=== PATIENT | male | born 1950 | race Caucasian/White ===

== ENCOUNTER 2021-05-24 10:16 | Outpatient (CLI) | payer MEDICARE, OTHER, SELFPAY ==
--- NOTE | 2021-05-24 10:30 | ECG_ITS ---
Measurements Intervals Dows Rate: 68 P: 28 IL: 155 QRS: -16 QRSD: 94 T: 17 QT: 400 QTc: 426 Interpretive Statements SINUS RHYTHM DELAYED PRECORDIAL R/S TRANSITION LOW QRS VOLTAGE IN PRECORDIAL LEADS BASELINE ARTIFACT- V6 BORDERLINE ECG Electronically Signed On 05-24-2021 10:45:33 CDT by Yuval Shields D.O.
[2021-05-24 10:56] LABS: Anion Gap 4 mmol/L (8-16); Blood Urea Nitrogen 23 mg/dL (9-20); Calcium 9.8 mg/dL (8.4-10.2); Carbon Dioxide 37 mmol/L (22-30); Chloride 97 mmol/L (98-107); Estimated Glomerular Filt Rate 55; Glucose 112 mg/dL (65-110); Potassium 4.5 mmol/L (3.4-5.0); Sodium 138 mmol/L (137-145)
== END 2021-05-24 10:17 | disposition home or self-care (01) ==
LOC: ANHSURGERY 10:22
PROVIDERS: Anesthesiology; PCP Family Medicine; Visit Provider Urology
DX: Z01.818 Encounter for other preprocedural examination (principal); Z51.81 Encounter for therapeutic drug level monitoring; I10 Essential (primary) hypertension
CPT/HCPCS: 36415; 80048; 93005

== ENCOUNTER 2021-05-25 00:50 | Day surgery (SDC) | payer MEDICARE, OTHER, SELFPAY ==
[2021-05-23 15:07] VITALS: BMI 35.6
--- NOTE | 2021-05-23 15:39 | PC.NURSE ---
Report to the Outpatient Waiting Room, entrance under the green pavilion located off [facility], at time __1100 on date ____05/25/21___. OR Time: ___1300 . - You and your visitor will be asked a series of questions to screen for COVID 19 for your protection. - A mask is required within the hospital. - Only one visitor is allowed at this time. Patient visitors will be guided where to wait when not with patient. Preoperative COVID Testing Requirements: No COVID Test needed if: (proof is required; if not received patient will have Rapid Test prior to entry) - Patient has received COVID Vaccine at least 14 days prior to procedure date or - Patient has positive COVID test result within last 90 days of surgery date. COVID Test needed if above criteria is not met If not COVID vaccinated a COVID test must be conducted within 72 hours of surgery and patient is asked to isolate self from time of testing until procedure. You will go to the [facility] [employer] for your COVID testing. The [employer] [facility] is located at the corner of [address] [facility]. You will only be called if COVID results are positive and your surgeon may reschedule your elective surgery date. Patients may have clear liquids (water, carbonated beverages, clear teas, apple juice) until 3 hours prior to surgery with a maximum of 20 ounces. - No food from midnight until time of surgery - Infants may have breast milk until 4 hours before surgery, formula 6 hours prior to surgery. - Children will be allowed to drink immediately following surgery. If applicable, please bring a bottle or sippy cup to assist with drinking. Juice, water, soda, and popsicles are readily available. For infants on formula, please bring formula the day of surgery. Pacifiers are allowed. Take the following medications with a SIP of water the morning of surgery: ____AMLODIPINE, DULOXETINE, GABAPENTIN, HYDROCODONE, LEVOTHYROXINE Medications to discontinue per physician NONE Date to take last dose Please no make-up, nail greek, hairspray, perfume, deodorant, or body powder the day of surgery. No jewelry (including any body piercings) or valuables the day of surgery, leave them at home. Please take a shower or bath the night before, or the morning of, surgery with an antibacterial soap. Wear comfortable, loose fitting clothing. Children are encouraged to wear pajamas. - Jewelry must be removed prior to entering the operating room. Rings and piercings that are not removed may be cut off. - The hospital will not accept responsibility for valuables. - Please leave all valuables, including medications, at home the day of surgery. If you are going home after surgery, a licensed driver trainee must drive you home. - NO public transportation without another adult. - We recommend that an adult stay with you for 24 hours following discharge. - We also recommend that you do not drive, make important decision, drink alcoholic beverages, or take any drugs that were not prescribed by your health care provider for at least 24 hours after your discharge time. For Pediatric surgeries, we recommend two adults accompany the child home (only one inside the building at this time). Follow any additional instructions given to you from your surgeon. Telephone instructions given to ____PATIENT and asked if any additional questions and then verbalized understanding. Patient advised to call surgeon office or pre surgery nurse liaison [phone] if any additional questions.
--- NOTE | 2021-05-25 06:47 | WPDHPUPDATE1 ---
History and Physical Update Update Date/Time: 05/25/21 06:47 History and Physical has been reviewed, including an updated exam of the patient. There are NO changes in the patient's condition. Risks, benefits, and alternatives have been discussed and questions answered. Patient agrees to proceed with procedure.
--- NOTE | 2021-05-25 11:28 | WPDANESEPPF ---
Anes - Initial Pre Proc Eval Procedure: Operation Date: 05/25/21 13:00 Proposed Procedures p Cystoscopy, Urethral Dilatation - Ezra Ross MD Date/Time: 05/25/21 11:28 Surgeon: Ezra Ross MD Pre Op Diagnosis: Urethral Stricture Patient Data Age: 70 Gender: M Height: 1.88 m Weight: 126.7 kg Allergies Allergy/AdvReac Type Severity Reaction Status Date / Time clonidine Allergy Unknown shakes Verified 05/25/21 10:59 atenolol AdvReac Unknown cough Verified 05/25/21 10:59 chlorthalidone [Tenoretic] AdvReac Unknown cough Verified 05/25/21 10:59 PSEUDOEPHEDRINE HCL AdvReac Unknown shakey Uncoded 05/25/21 10:59 DECONGESTANTS AdvReac Hypertension, Uncoded 05/25/21 10:59 SHAKINESS Home Medications Medication Instructions Recorded Confirmed Type hydrocodone 10 mg-acetaminophen 1 tablet PO Q3-4H PRN 02/02/20 05/23/21 History 325 mg tablet duloxetine 60 mg capsule,delayed 60 mg PO BID #180 cap 05/25/20 05/23/21 Rx release furosemide 20 mg tablet 20 mg PO QAM #90 tablet 05/25/20 05/23/21 Rx metformin 500 mg tablet 500 mg PO BID #180 tablet 05/25/20 05/23/21 Rx montelukast 10 mg tablet 10 mg PO DAILY #90 tablet 05/25/20 05/23/21 Rx alprazolam 1 mg tablet 1 mg PO QHS #90 tablet 04/18/21 05/23/21 Rx amlodipine 10 mg PO QAM 05/23/21 05/23/21 History atorvastatin 40 mg PO QAM 05/23/21 05/23/21 History ezetimibe [Zetia] 10 mg PO QAM 05/23/21 05/23/21 History gabapentin 300 mg PO QAM 05/23/21 05/23/21 History levothyroxine 75 mcg PO QAM 05/23/21 05/23/21 History losartan-hydrochlorothiazide 1 tablet PO QAM 05/23/21 05/23/21 History omeprazole 20 mg PO QAM 05/23/21 05/23/21 History Patient hx anesthesia problems: none Family hx anesthesia problems: none Results Review: All pre-operative results and documents have been reviewed as part of the pre-operative evaluation. [facility] Family History Family History Mother Diabetes mellitus Depression Hypertension Family history of elevated blood lipids Family history of malignant neoplasm of thyroid Grandparent Diabetes mellitus Hypertension Family history of elevated blood lipids Carcinoma of colon Sibling Depression Social History Social History Smoking packs per day: 0.25 Smoking cigarettes per day: 5.0 Years smoked: 6 Smoking pack-years: 1.50 Tobacco type: cigarettes Second hand tobacco smoke exposure: Yes Smoking end date: 01/19/77 Alcohol intake: never Drinks per week: 1 Substance use: never Living arrangements: with family Additional living arrangements comments: Spiritual care concerns: No Anes - Eval Final PreProcedure Day of Procedure 05/25/21 11:28 Patient weight: obese Heart: regular rate and rhythm Lungs: clear to auscultation Airway: Mallampati scale class II Neurological: alert and oriented Last oral intake: >/= 8 hours ASA classification: III Emergent: no Anesthetic plan: proceed Anesthesia type and monitoring: general LMA and standard monitoring Results Review: All pre-operative results and documents have been reviewed as part of the pre-operative evaluation. Informed Consent: The patient's anesthetic plan and its attendant risks and benefits were discussed with the patient/family/POA. Questions were solicited and answers provided to the satisfaction of the patient/family/POA.
[2021-05-25 11:32] VITALS: BP 143/95; PULSE 67; RESP 16; TEMP 36.9; O2SAT 98
[2021-05-25 11:39] LABS: Glucose Point of Care 103 mg/dl (65-105)
[2021-05-25] MEDS: LACTATED RINGERS 1,000 ML 30 ML IV CONT (11:51)
[2021-05-25] MEDS: ceFAZolin 3 GM/D5W 100 ML 100 ML IVPB (13:39)
[2021-05-25] MEDS: LIDOCAINE HCL 2% GEL UROJET 10 ML PKG MUCOUS MEM (13:53)
[2021-05-25 14:09] VITALS: BP 146/99; PULSE 71; RESP 12; TEMP 36.3; O2SAT 99
--- NOTE | 2021-05-25 14:10 | W.PM.PROC2 ---
Procedure Note - Detailed Date of Procedure 05/25/21 Pre-op Diagnosis Urethral Stricture/Bladder Neck Contracture Post-op Diagnosis same Procedure Performed Cystoscopy, dilatation bladder neck Surgeon Ezra Ross MD Anesthesia MAC Description of Procedure The patient was brought to the operative suite where he was prepped and draped in a routine sterile fashion while in a dorsal lithotomy position after the uneventful induction of a general LMA anesthetic. Cystoscopy was undertaken with a 19F rigid cystoscope. There were no urethral strictures. The prostatic urethral estimated length was 1.0cm (previously undergone treatment for CaP). The bladder itself was endoscopically normal without foreign body or neoplasm. The bladder mucosa was without hyperemia. There was a single orthotopic ureteral orifice bilaterally with clear efflux of urine. Using the Sarita sounds I dilated the urethra and bladder neck from [] F. The bladder was emptied and the patient was taken to the recovery room in good condition Estimated Blood Loss 0 Drains No Packing No Pathology none sent Complications No immediate complications Condition stable Disposition PACU
[2021-05-25 14:20] VITALS: BP 137/98; PULSE 68; RESP 12; O2SAT 100
[2021-05-25 14:25] LABS: Glucose Point of Care 85 mg/dl (65-105)
[2021-05-25 14:35] VITALS: BP 129/97; PULSE 63; RESP 20; O2SAT 99
[2021-05-25 14:50] VITALS: BP 155/84; PULSE 62
[2021-05-25 15:20] VITALS: BP 140/96; PULSE 57
--- NOTE | 2021-05-25 15:20 | SUR.PHASEII ---
Patient has a prescription for Cade already that is stronger than the one prescribed so he told me to shred the one from Dr. Ross.
--- NOTE | 2021-05-25 15:27 | SUR.PHASEII ---
Patient states, My blood pressure runs high with the automatic machines. My doctor just checked it manually last week and it was fine.
== END 2021-05-25 15:28 | disposition home or self-care (01) ==
PROVIDERS: PCP Family Medicine; Visit Provider Urology
PROC: 0T7D8ZZ Dilation of Urethra, Via Natural or Artificial Opening Endoscopic (ICD-10-PCS; CPT 52281; principal; 2021-05-25 13:00)
DX: N32.0 Bladder-neck obstruction (principal); N35.919 Unspecified urethral stricture, male, unspecified site; Z85.46 Personal history of malignant neoplasm of prostate; I10 Essential (primary) hypertension; E78.00 Pure hypercholesterolemia, unspecified; K21.9 Gastro-esophageal reflux disease without esophagitis; Z79.82 Long term (current) use of aspirin; Z79.84 Long term (current) use of oral hypoglycemic drugs; Z87.891 Personal history of nicotine dependence; E66.9 Obesity, unspecified; Z68.35 Body mass index [BMI] 35.0-35.9, adult
CPT/HCPCS: 52281; 82948; A9270; J0690; J2250; J2704; J3010; J7120

== ENCOUNTER → 2021-05-26 10:34 | Outpatient (CLI) | payer MEDICARE, OTHER, SELFPAY ==
--- NOTE | ~2021-05-26 | US_ITS ---
EXAMINATION: US abdomen complete DATE: 05/26/2021 11:14 INDICATION: Bloating and abdominal pain TECHNIQUE: Multiple grayscale and Doppler ultrasound images of the abdomen were obtained. COMPARISON: None available FINDINGS: Bowel gas obscures visualization of the pancreas The liver is normal with normal echogenici ty and echotexture. No surface nodularity. Normal hepatopetal flow in the main portal vein. The gallb ladder is normal with no abnormal wall thickening, pericholecystic fluid or stones. The normal common bile duct measures 4 mm. There was no sonographic Connell sign. The visualized portions of the aorta and inferior vena cava are normal. The right kidney measures 10.5 x 5.1 x 4.4 cm. The left kidney measures 10.3 x 4.8 x 4.5 cm. The kidn eys demonstrate normal parenchymal echogenicity. There is no hydronephrosis. The spleen is normal in appearance and measures 9.9 cm. IMPRESSION: 1. No sonographic correlate for the patient's symptoms. Reviewed, dictated and finalized at location B.
== END ==
PROVIDERS: PCP Family Medicine; Visit Provider Family Medicine
DX: R10.9 Unspecified abdominal pain (principal)
CPT/HCPCS: 76700

== ENCOUNTER 2024-10-27 09:14 | Outpatient (CLI) | payer MEDICARE, OTHER, SELFPAY ==
--- NOTE | ~2024-10-27 | NM_ITS ---
EXAMINATION: NM babar stress w perfusion DATE: 10/27/2024 13:03 INDICATION: Type 2 diabetes TECHNIQUE: Rest images were obtained following intravenous administration of 11.2 mCi Tc99m tetrofosm in (Myoview). The patient was infused intravenously with Lexiscan (Regadenoson). Then, 33.7 mCi Tc99m tetrofosmin (Myoview) was administered intravenously, and stress images were obtained. Data was georgiana nstructed into short axis and horizontal and vertical long axis SPECT images. Gated SPECT images were also obtained. COMPARISON: None. FINDINGS: There is no definite reversible or fixed perfusion abnormality to suggest ischemia or infar ction. There is normal left ventricular chamber size, wall motion and ejection fraction. Left ventr icular ejection fraction measures 68%. IMPRESSION: 1. Normal myocardial perfusion at rest and during stress. 2. Left ventricular ejection fraction measuring 68%. Reviewed, dictated and finalized at location B.
--- OUTSIDE RECORDS SUMMARY | 2024-10-27 09:57 | XMS_ITS | Referral Summary ---
Author Organization [facility] Address [address] [place] [address] Care Team Providers Care Homicide Detective Name Role Phone Garry Kwong MD Unavailable [phone] Fiona Matthew MD Primary Care Provider + Encounters Date Type Department Care Team Description 10/22/2024 10:55 AM CDT - 10/22/2024 11:59 PM CDT Hospital Encounter [facility] [address] [place] [address] Pre-op testing Discharge Disposition: Discharge to home or self care 10/08/2024 1:35 PM CDT Office Visit [facility] [address] [facility] [address] [place] [phone] Kristine Atkinson NP 09/25/2024 10:00 AM ELECTRICAL PROJECT MANAGER - 09/25/2024 11:30 AM ELECTRICAL PROJECT MANAGER Surgery [facility] [address] [place] [address] Gil Alford MD LAPAROSCOPIC CHOLECYSTECTOMY 09/25/2024 10:12 AM ELECTRICAL PROJECT MANAGER Anesthesia Event [facility] [address] [place] [address] Marlen Aceves MD [place], Emenike Adolphus Jr., MD 09/25/2024 8:00 AM ELECTRICAL PROJECT MANAGER - 09/25/2024 1:20 PM ELECTRICAL PROJECT MANAGER Hospital Encounter [facility] Operating Room [address] [place] [address] Gil Alford MD Biliary colic Discharge Disposition: Discharge to home or self care 09/16/2024 10:30 AM ELECTRICAL PROJECT MANAGER Office Visit [facility] [address] [facility] [address] [place] [phone] Gil Alford MD Biliary colic 09/03/2024 3:09 PM ELECTRICAL PROJECT MANAGER - 09/03/2024 11:59 PM ELECTRICAL PROJECT MANAGER Hospital Encounter [facility] [address] [place] [address] Rotator cuff arthropathy of left shoulder Discharge Disposition: Discharge to home or self care 09/02/2024 Telephone [facility] [address] [place] [address] BorisKarly Peterson 08/13/2024 Orders Only [facility] [address] [place] [phone] Chepe Llanos MD S/P reverse total shoulder arthroplasty, left (Primary Dx) 08/13/2024 Orders Only [facility] [address] [place] [phone] Chepe Llanos MD Rotator cuff arthropathy of left shoulder (Primary Dx) 08/12/2024 Telephone [facility] [address] [place] [phone] Chepe Llanos MD 08/12/2024 1:15 PM ELECTRICAL PROJECT MANAGER Office Visit [facility] [address] [place] [phone] Chepe Llanos MD Rotator cuff arthropathy of left shoulder (Primary Dx) from Last 3 Months Allergies Active Allergy Reactions Criticality Noted Date Comments Aller-Chlor Decongestant Unknown 02/05/2022 Clonidine Other (See comments) Reaction: nervous, Pregabalin Mental status changes Low 09/23/2019 Anger Oxymetazoline Anxiety Low 08/11/2021 Jittery. jumpiness Prochlorperazine Other (See comments) Low 02/05/2022 Reaction: highly nervous, Reaction: highly nervous, Pseudoephedrine Other (See comments) Reaction: NERVOUS; HYPER, Medications montelukast (SINGULAIR) 10 mg tablet Take 1 tablet (10 mg total) by mouth nightly Active omeprazole (PriLOSEC) 40 mg capsule Take 1 capsule (40 mg total) by mouth daily Active atorvastatin (LIPITOR) 40 mg tablet Take 1 tablet (40 mg total) by mouth daily Active levothyroxine (SYNTHROID) 75 mcg tablet Take 1 tablet (75 mcg total) by mouth manager universal before breakfast Active amLODIPine (NORVASC) 10 mg tablet Take 1 tablet (10 mg total) by mouth daily Active DULoxetine DR (CYMBALTA) 60 mg capsule Take 1 capsule (60 mg total) by mouth 2 (two) times a day Active furosemide (LASIX) 20 mg tablet Take 1 tablet (20 mg total) by mouth daily Active ezetimibe (ZETIA) 10 mg tablet Take 1 tablet (10 mg total) by mouth daily 2 Active losartan-hydroC HLOROthiazide (HYZAAR) 100-12.5 mg per tablet 2 Active fluticasone propionate (FLONASE) 50 mcg/actuation nasal spray Administer 1 spray into each nostril daily Active cetirizine (ZyrTEC) 10 mg tablet Take 1 tablet (10 mg total) by mouth daily Active glipiZIDE XL (GLUCOTROL XL) 2.5 mg 24 hr tablet Take 1 tablet (2.5 mg total) by mouth daily 3 Active albuterol HFA (PROVENTIL HFA,VENTOLIN HFA,PROAIR HFA) 90 mcg/actuation inhaler Albuterol Sulfate HFA 108 (90 Base) MCG/ACT Inhalation Aerosol Solution QTY: 1 inhaler Days: 30 Refills: 0 Written: 06/26/20 Patient Instructions: Inhale 1-2 puffs Q4-6 H PRN cough, sob, wheezing. 0 Active naloxone (NARCAN) 4 mg/actuation spray,non-aeros ol 4 Active HYDROmorphone, bulk, (DILAUDID) 100 % powder 0 5 Active cyanocobalamin, vitamin B-12, 1,000 mcg/mL drops Take by mouth Active oxyCODONE-aceta minophen (PERCOCET) 5-325 mg per tabletIndicatio ns:Pain Take 1-2 tablets by mouth every 8 (eight) hours as needed for pain 20 tablet Active Active Problems Problem Noted Date Diagnosed Date Rotator cuff arthropathy, left 10/15/2024 Biliary colic 09/16/2024 Prediabetes 09/02/2023 Assessment & Plan (09/02/2023 12:46 PM ELECTRICAL PROJECT MANAGER): No results found for: HGBA1C Lab Results Component Value Date CREATININE 1.31 01/25/2016 Recheck A1c now Lipid panel microalbumin Spondylosis of lumbar region without myelopathy or radiculopathy 07/30/2023 Myalgia, other site 07/30/2023 Hypertension, essential 12/12/2021 Assessment & Plan (09/02/2023 12:36 PM ELECTRICAL PROJECT MANAGER): BP Readings from Last 3 Encounters: 09/02/23 108/78 09/02/23 121/83 07/30/23 136/97 Vitals BP 108/78 (BP Location: Right arm, Patient Position: Sitting) Pulse 96 Resp 16 Ht 179.1 cm (5' 10.51 ) Wt 122.5 kg (270 lb) SpO2 96% BMI 38.18 kg/m Lab Results Component Value Date POTASSIUM 4.0 01/25/2016 At goal at this time Continue lasix 20 mg every day, hyzaar 100-12.5 mg every day, norvasc 10 mg qd Assessment & Plan (03/13/2022 1:17 PM CDT): Stable, well controlled; blood pressure at target today; no chest pain or headaches Some episodes of orthostatics, varying day-to-day Continue amlodipine 10 mg daily well furosemide 20 mg daily, hydrochlorothiazide 12.5 mg daily Losartan-hydrochlorothiazide 100-12.5 mg daily Assessment & Plan (12/12/2021 4:43 PM CDT): Mildly elevated today, continue Losartan-HCTZ 100-12.5, and HCTZ 12.5 mg daily Gastroesophageal reflux disease without esophagi tis 12/12/2021 Assessment & Plan (03/13/2022 1:19 PM CDT): Stable, not well controlled; patient reports some chest pressure as well as easy belching Continue omeprazole 40 mg daily Assessment & Plan (12/12/2021 4:46 PM CDT): Stable well controlled; with prilosec 40 mg daily Acquired hypothyroidism 12/12/2021 Assessment & Plan (09/02/2023 12:41 PM ELECTRICAL PROJECT MANAGER): No results found for: TSH No previous tsh Recheck now Assessment & Plan (03/13/2022 1:18 PM CDT): Stable, well controlled; continue levothyroxine 75 mcg daily Assessment & Plan (12/12/2021 4:46 PM CDT): Stable,well controlled with good management of energy and weight -continue Synthroid 75 mcg -check TSH Dyslipidemia 12/12/2021 Assessment & Plan (03/13/2022 1:17 PM CDT): Will, well controlled; occasional episodes of cramping in muscles, especially cast Continue atorvastatin 40 mg daily, Zetia 10 mg daily Coenzyme Q10 4 muscle cramps Assessment & Plan (12/12/2021 4:48 PM CDT): Likely familial; continue atorvastatin 40 mg, Exetimibue 10 mg daily Class 2 severe obesity due t o excess calories with serious comorbidity and body mass index (BMI) of 36.0 to 36.9 in adult 12/12/2021 Assessment & Plan (09/02/2023 12:41 PM ELECTRICAL PROJECT MANAGER): Wt Readings from Last 3 Encounters: 09/02/23 122.5 kg (270 lb) 09/02/23 121.1 kg (267 lb) 04/10/23 124.3 kg (274 lb) BMI Readings from Last 3 Encounters: 09/02/23 38.18 kg/m 09/02/23 37.77 kg/m 04/10/23 39.31 kg/m Not at goal of bmi <30 Continue diet and exercise BMI Follow-up includes: nutrition counseling and exercise counseling. Assessment & Plan (03/13/2022 1:18 PM CDT): Stable, mild improvement Encouraged patient continue to work on dietary changes to reduce overall caloric intake, increase activity to 30 minutes moderate intensity exercise 5 days per week Patient has limited activity due to chronic low back pain with radiculopathy Assessment & Plan (12/12/2021 4:49 PM CDT): Stable, encouraged patient to work on weight loss Patient limited in exercise due to chronic pain, however encouraged patient to work on portion control and dietary changes to reduce weight Nontraumatic incomplete tear of left rotator cuf f 10/05/2021 Rupture of tendon of biceps, long head 2 Abdominal pain 10/03/2021 Assessment & Plan (10/03/2021 1:29 PM CDT): EGD Lumbar radiculopathy 09/17/2019 Lumbar post-laminectomy syndrome 09/17/2019 Assessment & Plan (12/12/2021 4:42 PM CDT): Not well controlled; now with loss of feeling in right leg; some improvement with discetomy; -follows with pain management -continue duloxetine 60 mg BID; continue Xanax 1 mg prn Insomnia secondary to chronic pain 09/17/2019 Colon cancer screening 02/05/2019 Overview (02/05/2019): Added automatically from request for surgery [id number] Resolved Problems Problem Noted Date Diagnosed Date Resolved Date Degenerative lumbar spinal stenosis 09/11/2022 06/20/2023 Lumbar facet arthropathy 07/24/2022 Acute midline thoracic back pain 08/18/2020 06/20/2023 Chronic pain of multiple joints 04/10/2020 06/20/2023 Assessment & Plan (03/13/2022 1:20 PM CDT): Not well controlled, worsened low back with radiculopathy Patient follows with pain management On hydrocodone 10 mg q.i.d. intermediate (current) use of opiate analgesic 12/18/2019 06/20/2023 Chronic bilateral low back p ain without sciatica 09/17/2019 06/20/2023 DDD (degenerative disc disease), lumbar 09/17/2019 06/20/2023 Sacroiliitis 09/17/2019 06/20/2023 Immunizations Immunization Administration Dates Next Due Influenza, Quadrivalent, Hig h Dose, Preservative Free, Intrr 05/06/2023,05/08/2022 Influenza, Quadrivalent, Rec ombinant, Egg Free, Preservative Free, Intramuscular 05/17/2021,04/01/2019 Influenza, Trivalent, High D ose, Split, Preservative Free, Intramuscular 03/17/2018 Influenza, Unspecified 04/30/2023 Pneumococcal Conjugate Pcv20 03/02/2022 Tdap 12/19/2022 ZOSTER Recombinant 12/19/2022 Social History Tobacco Use Types Packs/Day Years Used Date Smoking Tobacco: Former Cigarettes Q uit: 07/22/1973 Smokeless Tobacco: Never Tobacco Cessation:Counseling Given: Not Answered Alcohol Use Standard Drinks/Week Comments Never 0 (1 standard drink = 0.6 oz pur e alcohol) AUDIT-C Answer Date Recorded Q1: How often do you have a drink containing alcohol? Never 09/16/2024 Q2: How many drinks containi ng alcohol do you have on a typical day when you are drinking? Patient does not drink Q3: How often do you have si x or more drinks on one occasion? Never 09/16/2024 PHQ-2 Answer Date Recorded PHQ-2 Total Score (If total score is 3 or more points, staff should administer the PHQ-9) 0 09/02/2023 Personal Safety Answer Date Recorded Have you ever been in or are you currently in a harmful physical or emotional relationship or is someone making you feel afraid or unsafe? Denies 09/25/2024 Sex and Gender Information Value Date Recorded Sex Assigned at Not on file Legal Sex Male 3:29 PM ELECTRICAL PROJECT MANAGER Gender Identity Male 08/08/2020 5:45 PM ELECTRICAL PROJECT MANAGER Sexual Orientation Not on file Last Filed Vital Signs Vital Sign Reading Time Taken Comments Blood Pressure 118/78 10/08/2024 1:18 PM CDT Pulse 86 10/08/2024 1:18 PM CDT Temperature 36.2 C (97.1 F) 10/08/2024 1:18 PM CDT Respiratory Rate 18 09/25/2024 12:3 0 PM ELECTRICAL PROJECT MANAGER Oxygen Saturation 97% 10/08/2024 1:18 PM CDT Inhaled Oxygen Concentration - - Weight 124.1 kg (273 lb 9.6 oz) 10/08/2024 1:18 PM CDT Height 177.8 cm (5' 10 ) 10/08/2024 1:18 PM CDT Body Mass Index 39.26 10/08/2024 1:18 PM CDT Plan of Treatment Upcoming Encounters Date Type Department Care Team (Latest Contact Info) Description 11/10/2024 8:00 AM CDT Hospital Encounter [facility] [address] [place] [address] Chepe Llanos MD [address] [place] [address] DR ERON Carter [facility] [[email or web address]] [address] [place] [address] 11/10/2024 8:00 AM CDT - 11/10/2024 10:30 AM CDT Surgery [facility] [address] [place] [address] Chepe Llanos MD [address] [place] [address] DR ERON Carter [facility] [[email or web address]] [address] [place] [address] Left reverse total shoulder arthroplasty--Arthr ex, beach chair, NMES, Spider, polar care, 1 liter beta rinse and aquamantys (Same day) Scheduled Procedures Name Priority Associated Diagnoses Date/Ti me ARTHROPLASTY SHOULDER - REVERSE TOTAL Rotator cuff arthropathy, left 11/10/2024 8:00 AM CDT Goals Goal Patient Goal Type Associated Problems Recent Progress Patient-Stated? Author [facility] Worsening(11/2021 9:48 AM CDT) No Caroline Au, QIAN Note: Patient will establish a comfort-function goal and identify the pain level that will allow the patient to perform desired activities and achieve an acceptable quality of life. Medical Devices Implanted Type Area Brick Cleaner Device Identifier Shelf Expiration Date Model / Serial / Lot Penile- 4 Implanted:Qty: 1 on 05/26/2014 by London Syed MD Penis / REF [id number] / [id number] Description:700 LGX, MS Pump , Preconnect. IZ Ref [id number] lot [id number] [id number], 700, reservoir, IZ ref [id number] lot [id number] Procedures Procedure Name Priority Date/Time Associated Diagnosis Comments SURGICAL PATHOLOGY Routine 09/25/2024 11:38 AM ELECTRICAL PROJECT MANAGER Biliary colic POCT GLUCOSE DEVICE Routine 09/25/2024 11:22 AM ELECTRICAL PROJECT MANAGER MT AN ELECTIVE ENDOTRACHEAL AIRWAY Routine 09/25/2024 10:23 AM ELECTRICAL PROJECT MANAGER LAPAROSCOPIC CHOLECYSTECTOMY 09/25/2024 9:56 AM ELECTRICAL PROJECT MANAGER Biliary colic ECG 12-LEAD Routine 09/25/2024 8:36 AM ELECTRICAL PROJECT MANAGER POTASSIUM LEVEL STAT 09/25/2024 8:31 AM ELECTRICAL PROJECT MANAGER POCT GLUCOSE DEVICE Routine 09/25/2024 8 :18 [address]ICAL PRO[address] SHOULDER LEFT WO CONTRAST Schedule Routine, Read Routine (OP Routine) 09/03/2024 3:48 PM ELECTRICAL PROJECT MANAGER Rotator cuff arthropathy of left shoulder COLONOSCOPY 05/05/2019 7:29 AM CDT from Last 3 Months or Most Recently Relevant to Health Maintenance Results * Surgical pathology (09/25/2024 11:38 AM ELECTRICAL PROJECT MANAGER) Tissue specimen (specimen) (Gallbladder) 09/25/2024 10:51 AM ELECTRICAL PROJECT MANAGER Narrative PATHOLOGY [facility] ([facility]) - 09/28/2024 1:35 PM CDT EPIC results best viewed via link to PDF [facility] Department of Pathology [address] [place] [id number] Note to Patients: This report may contain a detailed description of human tissue sent by a health care provider to the laboratory for pathologic evaluation. The content of this report is essential for diagnosis and may provide important critical findings. This information may be unfamiliar to patients to review without a medical professional present. It is advised that the patient review this report in the presence of a health care provider who can answer questions and explain the details. Final Report Patient Name: PIERCE ESPINAL Address: [address] [place], [place] [address] Gender: Mary Lou : 1950 (Age: 73) Service: Surgery Location: [facility] Hospital #: [id number] Patient Type: [facility] Taken: 09/25/2024 Received: 09/25/2024 Accessioned: 09/25/2024 Reported: 09/28/2024 Physician(s):Gil Alford M.D. Diagnosis: A. Gallbladder, laparoscopic cholecystectomy- Chronic cholecystitis Chloe Perdomo M.D. Report Electronically Reviewed and Signed Out By Chloe Perdomo M.D. 09/28/2024 13:35:01 Specimen(s) Received: A: Gallbladder Microscopic Description: Microscopic examination corroborates the diagnosis. Clinical History: Biliary colic. Laparoscopic cholecystectomy. Gross Description: The specimen is submitted in a single formalin filled container labeled PIERCE ESPINAL and gallbladder . It is a partially previously incised gallbladder, 6.9 x 2.4 cm. The lumen contains bile. No stones are present in the lumen or the container. The mucosa is bile stained with a small amount of yellow stippling. The gallbladder wall varies from 2-4 mm maximum thickness. The cystic duct is patent. Memory Care Director sections are submitted in one cassette. Dmitry Herrera/Bee Perez M.D. REPORT IMAGES AND SCANNED DOCUMENTS, IF INCLUDED, ONLY VIEWABLE IN PDF VERSION OF REPORT The performance characteristics of some immunohistochemical stains, fluorescence in-situ hybridization tests and immunophenotyping by flow cytometry cited in this report (if any) were determined by the Surgical Pathology Department at [facility] as part of an ongoing quality control lab technician program and in compliance with federally mandated regulations drawn from the Clinical Laboratory Improvement Act of 1988 (CLIA '88). Some of these tests rely on the use of analyte specific reagents and are subject to specific labeling requirements by the US Food and Drug Administration. Such diagnostic tests may only be performed in a facility that is certified by the Department of Health and Human Services as a high complexity laboratory under CLIA '88. The FDA has determined that such clearance or approval is not necessary. This test is used for clinical purposes. It should not be regarded as investigational or for research. Nevertheless, federal rules concerning the medical use of analyte specific reagents require that the following disclaimer be attached to the report: This test was developed and its performance characteristics determined by the Surgical Pathology Department [facility]. It has not been cleared or approved by the U. S. Food and Drug Administration. Note for decalcified specimens: This assay has not been validated on decalcified tissues. Results should be interpreted with caution given the possibility of false negativity on decalcified specimens Gil Alford MD LAB PATHOLOGY ORDER ANDREA Final Result Performing Organization Address [facility] Co de Phone Number PATHOLOGY [facility] ([facility]) [address] [place] [address] * POCT glucose (09/25/2024 11:22 AM ELECTRICAL PROJECT MANAGER) Glucose, POC 127 70 - 199 mg/dL Blood 09/25/2024 11:2 2 AM ELECTRICAL PROJECT MANAGER 09/25/2024 11:22 AM ELECTRICAL PROJECT MANAGER Gil Alford MD LAB POCT ORDERABLES - DEVICE Final Result Performing Organization Address [facility] de Phone Number [facility] ([facility]) [address] [facility] [place] [address] * MT AN ELECTIVE ENDOTRACHEAL AIRWAY (09/25/2024 10:23 AM ELECTRICAL PROJECT MANAGER) Narrative Bakari Lizarraga CRNA - 09/25/2024 10:23 AM ELECTRICAL PROJECT MANAGER Bakari Lizarraga CRNA 09/25/2024 10:24 AM Airway Patient location: OR Urgency: elective Date/time: 09/25/2024 10:23 AM Indications for airway management: anesthesia and airway protection Difficult airway: no Staff: Supervising provider: Marlen Aceves MD Placed by: STONE LAYER: Bakari Lizarraga CRNA Emergent airway documentation: Risks and benefits discussed: yes Consent obtained: yes Consent given by: patient Airway prep: Preoxygenated: yes Patient position: sniffing Mask difficulty assessment: 0 - not attempted Spontaneous ventilation during airway: absent Sedation level during airway: GA Final airway details: Final airway type: endotracheal airway Tube type: ETT ETT size: 7.0 mm Cuffed: yes Technique used for successful ETT placement: video laryngoscopy Devices/Methods used in placement: intubating stylet Insertion site: oral Video blade type: Carlton Blade size: 3 Cormack-Lehane (video): grade IIa - partial view of glottis Cuff inflated with: air ETT to lips: 22 cm Placement verified by: auscultation Airway secured with: silk tape Number of attempts: 1 Marlen Aceves MD ANESTHESIA ORDERABLES Fi nal Result * ECG 12 lead (09/25/2024 8:36 AM ELECTRICAL PROJECT MANAGER) 09/25/2024 8:36 AM ELECTRICAL PROJECT MANAGER Narrative [facility] - 09/25/2024 3:12 PM ELECTRICAL PROJECT MANAGER Vent Rate: 77 bpm RR Interval: 776 msec MT Interval: 148 msec QRS Duration: 100 msec QT Interval: 394 msec QTC Interval: 426 msec P-R-T [place]: -1 - -13 - 30 degrees IMPRESSION: SINUS RHYTHM LOW QRS VOLTAGE IN PRECORDIAL LEADS [QRS DEFLECTION < 1.0 mV IN CHEST LEADS] INFERIOR MYOCARDIAL INFARCTION , PROBABLY OLD [40+ ms Q WAVE AND/OR ST/T ABNORMALITY IN II/aVF] ABNORMAL ECG Electronically Signed By: Gab Gutierrez MD Gil Alford MD ECG ORDERABLES Fin al Result Performing Organization Address [facility] Co de Phone Number [facility] [employer] [facility] * (ABNORMAL) Potassium (09/25/2024 8:31 AM ELECTRICAL PROJECT MANAGER) Potassium, pl 3.2(L) 3.3 - 4.9 mmol/L Blood 09/25/2024 8:31 AM ELECTRICAL PROJECT MANAGER 09/25/2024 8:33 AM ELECTRICAL PROJECT MANAGER Frances Maurice Jr., MD LAB BLOOD ORDERA BLES Final Result Performing Organization Address [facility] Co de Phone Number [facility] ([facility]) [address] [facility] Department [place] [address] * POCT glucose (09/25/2024 8:18 AM ELECTRICAL PROJECT MANAGER) Glucose, POC 126 70 - 199 mg/dL Blood 09/25/2024 8:18 AM ELECTRICAL PROJECT MANAGER 09/25/2024 8:18 AM ELECTRICAL PROJECT MANAGER us Gil Alford MD LAB POCT ORDERABLES - DEVICE Final Result [facility] ([facility]) 1 [facility] [place] [address] * CT Shoulder Left WO Contrast (09/03/2024 3:48 PM ELECTRICAL PROJECT MANAGER) Anatomical Region Laterality Modality Upper Extremities Left Computed Tomog mateusz 09/05/2024 9:55 PM ELECTRICAL PROJECT MANAGER Narrative 09/05/2024 10:01 PM ELECTRICAL PROJECT MANAGER EXAM DESCRIPTION: CT SHOULDER LEFT WO CONTRAST REASON FOR STUDY: Pre Op Testing Pre op, surgery scheduled for 10/30/24, L shoulder pain for a few years TECHNIQUE: Multidetector CT scan of the left shoulder was performed. Coronal and sagittal images were reconstructed. Dose modulation adjustment of the mA and/or kV has been performed per [facility] protocols according to patient size and indication. COMPARISON: X-rays 09/05/2022. MRI 06/10/2024. FINDINGS: Normal mineralization. No acute fracture or dislocation. Minimal osteoarthritis glenohumeral joint. Mild osteoarthritis AC joint. Adjacent soft tissues demonstrate no focal fluid collection. No adenopathy by size criteria. Normal muscle bulk by CT. Lung windows demonstrate no confluent infiltrate. There is respiratory motion. Granulomatous change. Atherosclerotic change thoracic aorta. No aneurysmal dilatation. Limited view through the cervical and thoracic spine. Artifact is seen from prior anterior fusion of the cervical spine. Mild spondylosis otherwise. Mild spondylosis visualized portions of the thoracic spine. IMPRESSION: No acute fracture of the left shoulder. Minimal osteoarthritis glenohumeral joint. Mild osteoarthritis AC joint. THIS IS AN ELECTRONICALLY VERIFIED FINAL REPORT 09/05/2024 10:01 PM - Electronically signed by Natanael MYERS: LOUIS Report ID: [id number] Reading Location: [id number] Procedure Note Natanael Bullock MD - 09/05/2024 EXAM DESCRIPTION: CT SHOULDER LEFT WO CONTRAST REASON FOR STUDY: Pre Op Testing Pre op, surgery scheduled for 10/30/24, L shoulder pain for a few years TECHNIQUE: Multidetector CT scan of the left shoulder was performed. Coronal and sagittal images were reconstructed. Dose modulation adjustment of the mA and/or kV has been performed per [facility] protocols according to patient size and indication. COMPARISON: X-rays 09/05/2022. MRI 06/10/2024. FINDINGS: Normal mineralization. No acute fracture or dislocation. Minimal osteoarthritis glenohumeral joint. Mild osteoarthritis AC joint. Adjacent soft tissues demonstrate no focal fluid collection. Noadenopathy by size criteria. Normal muscle bulk by CT. Lung windows demonstrate no confluent infiltrate. There is respiratory motion. Granulomatous change. Atherosclerotic change thoracic aorta. No aneurysmal dilatation. Limited view through the cervical and thoracic spine. Artifact is seenfrom prior anterior fusion of the cervical spine. Mild spondylosis otherwise. Mild spondylosis visualized portions of the thoracic spine. IMPRESSION: No acute fracture of the left shoulder. Minimal osteoarthritis glenohumeral joint. Mild osteoarthritis AC joint. THIS IS AN ELECTRONICALLY VERIFIED FINAL REPORT 09/05/2024 10:01 PM - Electronically signed by Natanael Bullock M.D. MJ: LOUIS Report ID: [id number] Reading Location: [id number] us Chepe Llanso MD IMG CT PROCEDURES Final Resu lt * COLONOSCOPY (05/05/2019 7:29 AM CDT) Anatomical Region Laterality Modality Other Narrative Procedure Note Oneil Jarrett MD - 05/05/2019 7:29 AM CDT [facility] Patient Name: Pierce Espinal Procedure Date: 05/05/2019 7:29 AM Date of : 1950 Admit Type: Outpatient Age: 68 Gender: Male Attending MD: Oneil Jarrett M.D. Room: [facility] ENDOSCOPY ROOM 2 Note Status: Finalized Patient Profile: Refer to note in patient chart for documentation of history and physical. Procedure: Colonoscopy Indications: High risk colon cancer surveillance: Personalhistory of colonic polyps, Last colonoscopy: December 2013 Referring MD: Isaac Orozco MD Providers: Oneil Jarrett M.D. Impression: - Hemorrhoids found on perianal exam. - One 5 mm polyp in the transverse colon, removedwith a hot biopsy forceps. Resected and retrieved. - Patent end-to-end colo-colonic anastomosis, characterized by healthy appearing mucosa. - Diverticulosis in the sigmoid colon, in the descending colon, in the transverse colon and in the ascending colon. - The examination was otherwise normal. Recommendation: - Discharge patient to home. - Resume previous diet. - Continue present medications. - Await pathology results. - Repeat colonoscopy in 5 years for surveillance. - Return to primary care physician as previously scheduled. Medicines: None Complications: No immediate complications. Estimated Blood Loss: Estimated blood loss: none. Procedure: Pre-Anesthesia Assessment: - This assessment was completed [Time of Assessment] prior to the administration of sedation. The benefits, risks and alternatives of theprocedure and sedation were discussed and informed consent was obtained. All questions were answered. Please referto the signed informed consent document in the medical record. Bowel prep was administered using a single dose. The bowel preparation used was Miralax. Thebowel preparation used was bisacodyl tablets. The scopewas passed under direct vision. The [id number] was introduced through the anus andadvanced to the the cecum, identified by appendiceal orificeand ileocecal valve. The colonoscopy was performedwithout difficulty. The patient tolerated the procedurewell. The quality of the bowel preparation was good. Findings: Hemorrhoids were found on perianal exam. A 5 mm polyp was found in the transverse colon. The polyp wassessile. The polyp was removed with a hot biopsy forceps. Resection andretrieval were complete. Verification of patient identification for thespecimen was done by the physician and nurse using the patient's name andbirth date. Estimated blood loss was minimal. There was evidence of a prior end-to-end colo-colonic anastomosis inthe recto-sigmoid colon. This was patent and was characterized by healthy appearing mucosa. Multiple small and large-mouthed diverticula were found in thesigmoid colon, descending colon, transverse colon and ascending colon. The exam was otherwise without abnormality. Electronically signed by Oneil Jarrett M.D. Oneil Jarrett M.D. 05/05/2019 8:35:23 AM Number of Addenda: 0 Note Initiated On: 05/05/2019 7:29 AM Procedure Code(s): --- Professional --- 82759, Colonoscopy, flexible; with removal of tumor(s), polyp(s), or other lesion(s) by hot biopsy forceps Diagnosis Code(s): --- Professional --- K57.30, Diverticulosis of large intestine without perforation orabscess without bleeding Z98.0, Intestinal bypass and anastomosis status D12.3, Benign neoplasm of transverse colon (hepatic flexure orsplenic flexure) K64.9, Unspecified hemorrhoids Z86.010, Personal history of colonic polyps CPT copyright 2017 [employer]. All rights reserved. The codes documented in this report are preliminary and upon computer field technician reviewmay be revised to meet current compliance requirements. Recognized by the [employer] for G[employer]intestinal End[employer] for promoting quality in endoscopy Oneil Jarrett MD ENDOSCOPY PROCEDURES Final Re sult from Last 3 Months or Most Recently Relevant to Health Maintenance Insurance MEDICARE [facility] H[facility]/PPO Address: [address] [address] [place] [address] MEDICARE [facility] [place] [address] [place] [address] [facility] H[facility] Address: [address] [address] [place] [address] MEDICARE [facility] HEALTH PLAN SECONDARY Advance Directives For more information, please contact: [phone] * Full Code (Latest Code Status on File) Date Activated Date Inactivated Comments 10/13/2021 10:24 AM 10/13/2021 4:31 PM * Full Code Date Activated Date Inactivated Comments 10/13/2021 10:23 AM 10/13/2021 10:24 AM * Full Code Date Activated Date Inactivated Comments 05/05/2019 7:16 AM 05/05/2019 12:53 PM * Full Code Date Activated Date Inactivated Comments 05/05/2019 7:16 AM 05/05/2019 7:16 AM Care Teams Homicide Detective Relationship Specialty Start Date End Date Fiona Matthew MD [address] [place] [address] [place] [address] PCP - General Family Medicine 10/21/24 Garry Kwong MD [address] [place] [address] DR TUBBS [address] [place] [id number] Anesthesiologist Pain Management 07/09/22
--- OUTSIDE RECORDS SUMMARY | 2024-10-27 09:57 | XMS_ITS | Clinical Summary ---
Author Organization [facility] Address [address] [place] [address] Care Team Providers Care Sales Outfitter Name Role Phone Garry Kwong MD Unavailable [phone] Fiona Matthew MD Primary Care Provider + Allergies Active Allergy Reactions Criticality Noted Date [...] 1 tablet (75 mcg total) by mouth picture painter before breakfast Active amLODIPine (NORVASC) 10 mg [...] hours as needed for pain 20 tablet 5 Active Active Problems Problem Noted Date Diagnosed Date Rotator cuff arthropathy, left 10/15/2024 Biliary colic 09/16/2024 Prediabetes 09/02/2023 Assessment & Plan (09/02/2023 12:46 PM DRY MAN): No results found for: HGBA1C Lab Results Component Value Date CREATININE 1.31 01/25/2016 Recheck A1c now Lipid panel microalbumin Spondylosis of lumbar region without myelopathy or radiculopathy 07/30/2023 Myalgia, other site 07/30/2023 Hypertension, essential 12/12/2021 Assessment & Plan (09/02/2023 12:36 PM DRY MAN): BP Readings from Last 3 Encounters: 09/02/23 [...] 12/12/2021 Assessment & Plan (09/02/2023 12:41 PM DRY MAN): No results found for: TSH No previous [...] 12/12/2021 Assessment & Plan (09/02/2023 12:41 PM DRY MAN): Wt Readings from Last 3 Encounters: 09/02/23 [...] (02/05/2019): Added automatically from request for surgery [id number] Resolved Problems Problem Noted Date Diagnosed Date Resolved Date Degenerative lumbar spinal stenosis 09/11/2022 06/20/2023 Lumbar facet arthropathy 07/24/2022 Acute midline thoracic back pain 08/18/2020 06/20/2023 Chronic pain of multiple joints 04/10/2020 06/20/2023 Assessment & Plan (03/13/2022 1:20 PM CDT): Not well controlled, worsened low back with radiculopathy Patient follows with pain management On hydrocodone 10 mg q.i.d. correction (current) use of opiate analgesic 12/18/2019 06/20/2023 Chronic bilateral low back p ain without sciatica 09/17/2019 06/20/2023 DDD (degenerative disc disease), lumbar 09/17/2019 06/20/2023 Sacroiliitis 09/17/2019 06/20/2023 Encounters Date Type Department Care Team Description 10/22/2024 10:55 AM CDT - 10/22/2024 11:59 PM CDT Hospital Encounter [facility] [address] [place] [address] Pre-op testing Discharge Disposition: Discharge to home or self care 10/08/2024 1:35 PM CDT Office Visit [facility] [address] [place] [address] [address] [place] [address] Eyedeyanira KristineGILBERTO 09/25/2024 10:12 AM DRY MAN Anesthesia Event [facility] Operating Room [address] [place] [address] Marlen Aceves MD [place]ka[place], Emenike Adolphus Jr., MD 09/25/2024 10:00 AM DRY MAN - 09/25/2024 11:30 AM DRY MAN Surgery [facility] Operating Room 1 [place] [address] Gil Alford MD LAPAROSCOPIC CHOLECYSTECTOMY 09/25/2024 8:00 AM DRY MAN - 09/25/2024 1:20 PM DRY MAN Hospital Encounter [facility] Operating Room [address] [place] [address] Gil Alford MD Biliary colic Discharge Disposition: Discharge to home or self care 09/16/2024 10:30 AM DRY MAN Office Visit [address] [place] [address] Gil Alford MD Biliary colic 09/03/2024 3:09 PM DRY MAN - 09/03/2024 11:59 PM DRY MAN Hospital Encounter [facility] 1 [place] [address] Rotator cuff arthropathy of left shoulder Discharge Disposition: Discharge to home or self care 09/02/2024 [facility] [address] [place] [address] Karly Escalante 08/13/2024 Orders Only [facility] [address] [place] [phone] Chepe Llanos MD S/P reverse total shoulder arthroplasty, left (Primary Dx) 08/13/2024 Orders Only [facility] [address] [place] [phone] Chepe Llanos MD Rotator cuff arthropathy of left shoulder (Primary Dx) 08/12/2024 1:15 PM DRY MAN Office Visit [facility] [address] [place] [phone] Chepe Llanos MD Rotator cuff arthropathy of left shoulder (Primary Dx) 08/12/2024 Telephone [facility] [place] [address] Chepe Llanos MD from Last 3 Months Immunizations Immunization Administration Dates Next Due Influenza, Quadrivalent, Hig h Dose, Preservative Free, Intrr 05/06/2023,05/08/2022 Influenza, Quadrivalent, Rec ombinant, Egg Free, Preservative Free, Intramuscular 05/17/2021,04/01/2019 Influenza, Trivalent, High D ose, Split, Preservative Free, Intramuscular 03/17/2018 Influenza, Unspecified 04/30/2023 Pneumococcal Conjugate Pcv20 03/02/2022 Tdap 12/19/2022 ZOSTER Recombinant 12/19/2022 Surgical History Surgery Date Site/Laterality Comments LUMBAR PUNCTURE WO INJECTION, DIAGNOSTIC 08/09/2012 N/A PROSTATECTOMY 07/22/2014 - 07/21/2015 COLONOSCOPY 12/20/2013 - 01/18/2014 SPINAL FUSION 07/22/2021 - 07/21/2022 APPENDECTOMY 78 COLON SURGERY 1989 JOINT REPLACEMENT 2005 ABDOMINAL SURGERY 1989 INFUSION PUMP IMPLANTATION 01/20/2024 Medtronic pain pump placement Medical History Medical History Date Comments GERD (gastroesophageal reflux disease) Hyperlipidemia Hypertension 07/1989 Hypothyroidism 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 Prostate cancer (HCC) 2015 Low back pain Arthritis 07/2003 GI (gastrointestinal bleed) Diabetes mellitus ([facility]) 08/2022 Chronic kidney disease ckd stage 3 Type 2 diabetes mellitus ([facility]) Family History Medical History Relation Name Comments Arthritis Father Gene espinal Depression Father Gene espinal Hearing loss Father Gene espinal Memory loss Father Gene espinal Stroke Father Gene espinal Diabetes Mother Patricia Espinal Heart attack Mother Patricia Espinal Heart disease Mother Patricia Espinal Hypertension Mother Patricia Espinal Obesity Mother Patricia Espinal Relation Name Status Comments Father Gene espinal Mother Patricia Espinal Social History Tobacco Use Types Packs/Day Years [...] on file Legal Sex Male 3:29 PM DRY MAN Gender Identity Male 08/08/2020 5:45 PM DRY MAN Sexual Orientation Not on file Obstetrics History Last Filed Vital Signs Vital Sign Reading Time Taken Comments Blood Pressure 118/78 10/08/2024 1:18 PM CDT Pulse 86 10/08/2024 1:18 PM CDT Temperature 36.2 C (97.1 F) 10/08/2024 1:18 PM CDT Respiratory Rate 18 09/25/2024 12:3 0 PM DRY MAN Oxygen Saturation 97% 10/08/2024 1:18 PM CDT Inhaled Oxygen Concentration - - Weight 124.1 kg (273 lb 9.6 oz) 10/08/2024 1:18 PM CDT Height 177.8 cm (5' 10 ) 10/08/2024 1:18 PM CDT Body Mass Index 39.26 10/08/2024 1:18 PM CDT Plan of Treatment Upcoming Encounters Date Type Department Care Team (Latest Contact Info) Description 11/10/2024 8:00 AM CDT Hospital Encounter [facility] Operating Room 1 [place] [address] Chepe Llanos MD [address] LITTLEJOHN B [address] [address] 11/10/2024 8:00 AM CDT - 11/10/2024 10:30 AM CDT Surgery [facility] Operating Room 1 [place] [address] Chepe Llanos MD [address] [place] [address] [address] LITTLEJOHN [address] [place] [address] Left reverse total shoulder arthroplasty--Arthr ex, beach chair, NMES, Spider, polar care, 1 liter beta rinse and aquamantys (Same day) Scheduled Procedures Name Priority Associated Diagnoses Date/Ti me ARTHROPLASTY SHOULDER - REVERSE TOTAL Rotator cuff arthropathy, left 11/10/2024 8:00 AM CDT Health Maintenance Due Date Last Done Comments Hepatitis C Screening 1950 Hepatitis B Screening 11/06/1969 Abdominal Aortic Aneurysm (A AA) Screen 11/06/2016 Well Visit 65+ 11/06/2016 Zoster Vaccine (2 of 2) 02/13/2023 12/19/2022 Covid-19 Vaccine (2023-2 5 season) 2024 04/23/2022, 2021, 06/17/2021, Additional history exists Colon Cancer Screening-Colonoscopy 05/05/2024 05/05/2019, 12/31/2013 Depression Screening 09/02/2024 09/02/2023, 07/30/2023, 07/30/2023, Additional history exists Influenza Vaccine (Season Ended) 2025 05/06/2023, 04/30/2023, 05/08/2022, Additional history exists Fall Risk Assessment 09/16/2025 09/16/2024, 09/02/2023, 11/24/2021, Additional history exists DTaP/Tdap/Td Vaccine (2 - Td or Tdap) 12/19/2032 12/19/2022 Colon Cancer Screening-CT Colonography Discontinued 05/05/2019, 12/31/2013 Colon Cancer Screening-DNA Stool Discontinued 05/05/20 19, 12/31/2013 Colon Cancer Screening-FIT Discontinued 05/05/2019, Colon Cancer Screening-Sigmoidoscopy Discontinued 05/05/2019, 12/31/2013 Pneumococcal vaccine 65+ Completed 03/02/2022 Goals Goal Patient Goal Type Associated Problems Recent Progress Patient-Stated? Author BH-Pain Behavioral Health Worsening(10/ 11/2021 9:48 AM CDT) No Angely, Caroline Nahid, QIAN Note: Patient will establish a comfort-function goal and identify the pain level that will allow the patient to perform desired activities and achieve an acceptable quality of life. Medical Devices Implanted Type Area Drive In Waiter/Waitress Device Identifier Shelf Expiration Date Model / Serial / Lot Penile- 4 Implanted:Qty: 1 on 05/26/2014 by London Syed MD Penis / REF [id number] / [id number] Description:700 LGX, MS Pump , Preconnect. IZ Ref [id number] lot [id number] Ams, 700, reservoir, IZ ref [id number] lot [id number] Procedures Procedure Name Priority Date/Time Associated Diagnosis Comments SURGICAL PATHOLOGY Routine 09/25/2024 11:38 AM DRY MAN Biliary colic POCT GLUCOSE DEVICE Routine 09/25/2024 11:22 AM DRY MAN SD AN ELECTIVE ENDOTRACHEAL AIRWAY Routine 09/25/2024 10:23 AM DRY MAN LAPAROSCOPIC CHOLECYSTECTOMY 09/25/2024 9:56 AM DRY MAN Biliary colic ECG 12-LEAD Routine 09/25/2024 8:36 AM DRY MAN POTASSIUM LEVEL STAT 09/25/2024 8:31 AM DRY MAN POCT GLUCOSE DEVICE Routine 09/25/2024 8 :[address] SHOULDER LEFT WO CONTRAST Schedule Routine, Read Routine (OP Routine) 09/03/2024 3:48 PM DRY MAN Rotator cuff arthropathy of left shoulder COLONOSCOPY 05/05/2019 7:29 AM CDT from Last 3 Months or Most Recently Relevant to Health Maintenance Results * Surgical pathology (09/25/2024 11:38 AM DRY MAN) Tissue specimen (specimen) (Gallbladder) 09/25/2024 10:51 AM DRY MAN Narrative PATHOLOGY [facility] ([facility]) - 09/28/2024 1:35 PM CDT EPIC results best viewed via link to PDF [facility] Department of Pathology [address] [place] [address] Note to Patients: This report may contain [...] Final Report Patient Name: PIERCE ESPINAL Address: [address] [place] [address] Gender: M : 1950 (Age: 73) Service: Surgery Location: [facility] Hospital #: [id number] Patient Type: [facility] Taken: 09/25/2024 Received: 09/25/2024 Accessioned: 09/25/2024 Reported: [...] maximum thickness. The cystic duct is patent. Operations [place] sections are submitted in one cassette. Dmitry Herrera/Bee Perez M.D. REPORT IMAGES AND SCANNED DOCUMENTS, IF INCLUDED, ONLY VIEWABLE IN PDF VERSION OF REPORT The performance characteristics of some immunohistochemical stains, fluorescence in-situ hybridization tests and immunophenotyping by flow cytometry cited in this report (if any) were determined by the Surgical Pathology Department at [facility] as part of an ongoing quality facilitator program and in compliance with federally mandated [...] characteristics determined by the Surgical Pathology Department [facility]. It has not been cleared or approved by the U. S. Food and Drug Administration. Note for decalcified specimens: This assay has not been validated on decalcified tissues. Results should be interpreted with caution given the possibility of false negativity on decalcified specimens Gil Alford MD LAB PATHOLOGY ORDER ANDREA Final Result Performing Organization Address City/[facility]/ZIP Co de Phone Number PATHOLOGY [facility] ([facility]) [address] [place] [address] * POCT glucose (09/25/2024 11:22 AM DRY MAN) Glucose, POC 127 70 - 199 mg/dL Blood 09/25/2024 11:2 2 AM DRY MAN 09/25/2024 11:22 AM DRY MAN Gil Alford MD LAB POCT ORDERABLES - DEVICE Final Result Performing Organization Address City/[facility]/ZIP Co de Phone Number [facility] ([facility]) 1 [facility] [place] [address] * SD AN ELECTIVE ENDOTRACHEAL AIRWAY (09/25/2024 10:23 AM DRY MAN) Narrative Bakari Lizarraga CRNA - 09/25/2024 10:23 AM DRY MAN Bakari Lizarraga CRNA 09/25/2024 10:24 AM Airway Patient location: OR Urgency: elective Date/time: 09/25/2024 10:23 AM Indications for airway management: anesthesia and airway protection Difficult airway: no Staff: Supervising provider: Marlen Aceves MD Placed by: TECHNICAL APPLICATIONS SPECIALIST: Bakari Lizarraga CRNA Emergent airway documentation: Risks [...] silk tape Number of attempts: 1 Marlen Aceevs MD ANESTHESIA ORDERABLES Fi nal Result * ECG 12 lead (09/25/2024 8:36 AM DRY MAN) 09/25/2024 8:36 AM DRY MAN Narrative [facility] - 09/25/2024 3:12 PM DRY MAN Vent Rate: 77 bpm RR Interval: 776 msec SD Interval: 148 msec QRS Duration: 100 msec QT Interval: 394 msec QTC Interval: 426 msec P-R-T Nye: -1 - -13 - 30 degrees IMPRESSION: SINUS RHYTHM LOW QRS VOLTAGE IN PRECORDIAL LEADS [QRS DEFLECTION < 1.0 mV IN CHEST LEADS] INFERIOR MYOCARDIAL INFARCTION , PROBABLY OLD [40+ ms Q WAVE AND/OR ST/T ABNORMALITY IN II/aVF] ABNORMAL ECG Electronically Signed By: Gab Gutierrez MD Gil Alford MD ECG ORDERABLES [facility] al Result [facility] * (ABNORMAL) Potassium (09/25/2024 8:31 AM DRY MAN) Potassium, pl 3.2(L) 3.3 - 4.9 mmol/L Blood 09/25/2024 8:31 AM DRY MAN 09/25/2024 8:33 AM DRY MAN us Frances Maurice Jr., MD LAB BLOOD ORDERA BLES Final Result Performing Organization Address City/[facility]/ZIP Co de Phone Number [facility] ([facility]) 1 [facility] [place] [address] * POCT glucose (09/25/2024 8:18 AM DRY MAN) Glucose, POC 126 70 - 199 mg/dL Blood 09/25/2024 8:18 AM DRY MAN 09/25/2024 8:18 AM DRY MAN Gil Alford MD LAB POCT ORDERABLES - DEVICE Final Result Performing Organization Address City/[facility] Co de Phone Number [facility] ([place]) 1 [facility] [place] [address] * CT Shoulder Left WO Contrast (09/03/2024 3:48 PM DRY MAN) Anatomical Region Laterality Modality Upper Extremities Left Computed Tomog mateusz 09/05/2024 9:55 PM DRY MAN Narrative 09/05/2024 10:01 PM DRY MAN EXAM DESCRIPTION: CT SHOULDER LEFT WO CONTRAST [...] signed by Natanael MYERS: LOUIS Report ID: [id number] Reading Location: [id number] Procedure Note Natanael Bullock MD - 09/05/2024 [...] Natanael Bullock M.D. MJ: LOUIS Report ID: [id number] Reading Location: [id number] us Chepe Llanos MD IMG CT PROCEDURES Final Resu lt * COLONOSCOPY (05/05/2019 7:29 AM CDT) Anatomical Region Laterality Modality Other Narrative Procedure Note Oneil Jarrett MD - 05/05/2019 7:29 AM CDT [facility] Patient Name: Pierce Espinal Procedure Date: 05/05/2019 7:29 AM Date of : 1950 Admit Type: Outpatient Age: 68 Gender: Male Attending MD: Oneil Jarrett M.D. Room: [facility] ENDOSCOPY ROOM 2 Note Status: [...] The scopewas passed under direct vision. The [id number] was introduced through the anus andadvanced to [...] 7:29 AM Procedure Code(s): --- Professional --- 20232, Colonoscopy, flexible; with removal of tumor(s), polyp(s), or other lesion(s) by hot biopsy forceps Diagnosis Code(s): --- Professional --- K57.30, Diverticulosis of large intestine without perforation orabscess without bleeding Z98.0, Intestinal bypass and anastomosis status D12.3, Benign neoplasm of transverse colon (hepatic flexure orsplenic flexure) K64.9, Unspecified hemorrhoids Z86.010, Personal history of colonic polyps CPT copyright 2017 [employer]. All rights reserved. The codes documented in this report are preliminary and upon biometry teacher reviewmay be revised to meet current compliance requirements. Recognized by the [place] [employer] for promoting quality in endoscopy Oneil Jarrett MD ENDOSCOPY PROCEDURES Final Re sult from Last 3 Months or Most Recently Relevant to Health Maintenance Insurance MEDICARE [facility] MEDICARE [facility] HEALTH PLAN [facility] MEDICARE [facility] HEALTH PLAN SECONDARY Advance Directives For more information, please contact: [phone] * Full Code (Latest Code Status on File) Date Activated Date Inactivated Comments 10/13/2021 10:24 AM 10/13/2021 4:31 PM * Full Code Date Activated Date Inactivated Comments 10/13/2021 10:23 AM 10/13/2021 10:24 AM * Full Code Date Activated Date Inactivated Comments 05/05/2019 7:16 AM 05/05/2019 12:53 PM * Full Code Date Activated Date Inactivated Comments 05/05/2019 7:16 AM 05/05/2019 7:16 AM Care Teams Sales Outfitter Relationship Specialty Start Date End Date Fiona Matthew MD [address] [place] [address] [place] [id number] PCP - General Family Medicine 10/21/24 Garry Kwong MD [address] [place] [address] [place] [address] Anesthesiologist Pain Management 07/09/22
--- OUTSIDE RECORDS SUMMARY | 2024-10-27 09:58 | XMS_ITS | Clinical Summary ---
Author Organization [facility] Address [address] [place] [address] Phone Care Team Providers Care [employer] Marker Name Role Phone ROBIN MATTHEW MD Primary Care Provider [phone] LIDIA SCHWARZ, BRANT Franco [phone] Reason for Visit and Chief Complaint The Chief Complaint is: Pt. here today for left shoulder steroid injection under ultrasound guidance, The Chief Complaint is: Patient here today to follow up from intrathecal pain pump trial Plan of Treatment Pending Tests Order Diagnosis Results Due Ordering Provider Pain Management CPT Implant spinal canal catheter w/o laminectomy Postlaminectomy syndrome, not elsewhere classified 02/02/24 BRANT MURILLO MD Last Documented On 4 2:24PM ; [facility] Pain Management CPT Intraspinal catheter Postlaminectomy syndrome, not elsewhere classified 02/02/24 BRANT MRUILLO MD Last Documented On 4 2:24PM ; [facility] Pain Management CPT Programmable infusion pain pump Postlaminectomy syndrome, not elsewhere classified 02/02/24 BRANT MURILLO MD Last Documented On 4 2:24PM ; [facility] Pain Management CPT Placement of programmable pain pump Postlaminectomy syndrome, not elsewhere classified 02/02/24 BRANT MURILLO MD Last Documented On 4 2:24PM ; [facility] Pain Management CPT - Joints and Bursa Inj Major joint/bursa injection w/ U/S Primary osteoarthritis, right shoulder 02/02/24 BRANT MURILLO MD Last Documented On 4 2:23PM ; [facility] Education and Decision Aids were provided during visit for: Patient education about home safety plans for prevention of falls : Patient completed a Fall risk assesment and was provided fall risk education materials Last Documented On 3:44PM ; [facility] Assessments Includes: Assessments from this encounter Findings - [M19.011 - Primary osteoarthritis, right shoulder] Localized primary osteoarthritis of right shoulder glenohumeral joint - Last Documented On 01/03/2024 6:07PM ; [facility] - [M19.012 - Primary osteoarthritis, left shoulder] Localized primary osteoarthritis of left shoulder - Last Documented On 01/03/2024 6:07PM ; [facility] - [M25.519 - Pain in unspecified shoulder] Arthralgia of bilateral shoulder region - Last Documented On 01/03/2024 6:07PM ; [facility] - [M54.9 - Dorsalgia, unspecified] DORSALGIA - Last Documented On 01/03/2024 6:07PM ; [facility] - [M96.1 - Postlaminectomy syndrome, not elsewhere classified] Postlaminectomy syndrome - Last Documented On 01/03/2024 6:07PM ; [facility] - [M47.897 - Other spondylosis, lumbosacral region] Lumbosacral spondylosis - Last Documented On 01/03/2024 6:07PM ; [facility] - [M54.6 - Pain in thoracic spine] Pain in thoracic spine - Last Documented On 01/03/2024 6:07PM ; [facility] - [G89.29 - Other chronic pain] Chronic pain - Last Documented On 01/03/2024 6:07PM ; [facility] - [T85.695S - Other mechanical complication of other nervous system device, implant or graft, sequela] Mechanical complication of nervous system device, implant, and graft - Last Documented On 01/03/2024 6:07PM ; [facility] Instructions Includes: Instructions from this encounter Education and Decision Aids were provided during visit for: Patient education about home safety plans for prevention of falls : Patient completed a Fall risk assesment and was provided fall risk education materials Last Documented On 3:44PM ; [facility] Medical Equipment - Implanted Devices Includes: Current Devices No Medical Equipment Recorded Medications Includes: Medications discussed during this encounter and other current Medications Current Medications (continue as prescribed) HYDROcodone-Acetaminophen 5- 325 MG Oral Tablet 11/29/2023 Provider: BRANT MURILLO MD Diagnosis: Other acute postprocedural pain Take 1-2 tab PO Q 4 ? 6 hour s maximum 4 per day for acute postoperative pain. Last Documented On 11/29/2023 3:21PM By Brant Murillo MD ; [facility] Cyclobenzaprine HCl 10 MG Or al Tablet 10/15/2023 Provider: VIVIAN CARTER APRN- FPA, [facility]-BC Diagnosis: One tablet three times a day as needed Last Documented On 9:43AM By VIVIAN SIDHUP-BC ; [facility] glipiZIDE ER 2.5 MG Oral Tab let Extended Release 24 Hour 09/11/2023 Provider: CY Hong Diagnosis: Last Documented On 10/09/2023 10:39AM By Luis JO ; [facility] Losartan Potassium-HCTZ 100- 12.5 MG Oral Tablet 07/05/2023 Provider: CY Hong Diagnosis: Last Documented On 07/07/2023 4:43PM By WILLIAN JO ; [facility] DULoxetine HCl 60 MG Oral Ca psule Delayed Release Particles 07/04/2023 Provider: CATRACHITO HARDIN PA-C Diagnosis: Last Documented On 07/07/2023 4:43PM By WILLIAN JO ; [facility] Ezetimibe 10 MG Oral Tablet 07/04/2023 Provider: CY MATTHEW MD Diagnosis: Last Documented On 07/07/2023 4:43PM By WILLIAN JO ; [facility] Omeprazole 40 MG Oral Capsul e Delayed Release 06/26/2023 Provider: CY Hong Diagnosis: Last Documented On 07/07/2023 4:43PM By WILLIAN JO ; [facility] Levothyroxine Sodium 75 MCG Oral Tablet 06/26/2023 Amara hoangder: CATRACHITO HARDIN PA-C Diagnosis: Last Documented On 07/07/2023 4:43PM By WILLIAN JO ; [facility] Atorvastatin Calcium 40 MG Oral Tablet 06/26/2023 Pr ovider: CATRACHITO Gray LASHAWN ENRIQUE Diagnosis: Last Documented On 07/07/2023 4:43PM By WILLIAN JEAN-BAPTISTE Dexter ; [facility] amLODIPine Besylate 10 MG Oral Tablet 06/26/2023 Pro vider: CATRACHITO Gray LASHAWN ENRIQUE Diagnosis: Last Documented On 07/07/2023 4:43PM By WILLIAN JEAN-BAPTISTE Dexter ; [facility] Montelukast Sodium 10 MG Oral Tablet 06/20/2023 Prov ider: CY MATTHEW MD Diagnosis: Last Documented On 07/07/2023 4:43PM By WILLIAN JEAN-BAPTISTE Dexter ; [facility] ALPRAZolam 1 MG Oral Tablet 06/05/2023 Provider: CY MATTHEW MD Diagnosis: Last Documented On 07/07/2023 4:43PM By WILLIAN JEAN-BAPTISTE Dexter ; [facility] Albuterol Sulfate HFA 108 (90 Base) MCG/ACT Inhalation Aerosol Solution 06/26/2020 Provider: VIDA London Diagnosis: Unspecified acut e lower respiratory infection Inhale 1-2 puffs Q4-6 H PRN cough, sob, wheezing. Last Documented On 0 2:55PM By Vida FAN ; [facility] Past Medications on file Ytosldwz-Beahkibnp-MR 1% Leona c Solution 06/21/2022 - 07/21/2022 Provider: MARTHA GIPSON [facility]- Diagnosis: Unspecified otit is externa, bilateral 3 drops in affested ears 3 t imes daily for 7 days or until clear Last Documented On 2 2:36PM By MARTHA IGPSON [facility]STER-BC ; [facility] Medications Administered Includes: Administered Medications from this encounter Medications Administered Diagnosis Date Pro vider Sensorcaine 0.5% IJ SOLN 01/03/2024 TYLER MURILLO MD administered by Dr. Murillo in left shoulde r joint Last Documented On 4 5:47PM By Kaur Saini RN ; [facility] Kenalog 40 MG/ML IJ SUSP 01/03/2024 TYLER MURILLO MD administered by Dr. Murillo in left shoulde r joint Last Documented On 4 5:46PM By Kaur Saini RN ; [facility] Sodium Chloride 0.9% IV SOLN 01/03/2024 BRANT MURILLO MD administered by Dr. Murillo for local Last Documented On 4 5:45PM By Kaur Saini RN ; [facility] Xylocaine 1% IJ SOLN 01/03/2024 BRANT MURILLO MD administered by Dr. Murillo for local Last Documented On 4 5:44PM By Kaur Saini RN ; [facility] Vital Signs Includes: Vital Signs from this encounter Vital Name 01/03/2024 03:47P Blood Pressure Sitting R 126/88 BP Cuff Size Regular Pulse Rate-Sitting (bpm) 89 Pulse Rhythm Regular Respiration Rate (breaths/min) 20 Temp-Oral (F) 98 Height (in) 75 Weight (lb) 268 Body Mass Index 33.5 Body Surface Area 2.5 Pain Level 5 Oxygen Saturation (%) 97 Last Documented: On 01/03/2024 3:49PM ; [facility] Results Includes: Results discussed during this encounter No Results Recorded For Specified Dates History of Present Illness Includes: History of Present Illness from this encounter HPI PHQ-9 Score: 0 Date:43-44-00QROLF-R Score: 2 Date:36-18-48Tgsonght Score: 62 Date:83-81-81Olfp Location: LOWER BACK AT THE WAIST AND MID BACK, RT SIDE LEG Quality: BASEBALL, KNOT IN BACK , KNIFE, SHARP SHOOTING, PINS AND NEEDLES Radiation: DOWN FRONT OF LEG TO KNEE Severity: SEVERETiming: ALL DAY LONG Associated Sx: DIARRHEA, BOWEL PROBLEMSAggravating Factors:LEANING BACK, DIFFICULTY SLEEPING OR LAYING ON THE BACK IN AD OUT CAR. SITTING AND STANDING IN INTERVALS, ABOUT 10 MINUTESAlleviating Factors:PAIN PUMP HAS BEEN TURNED OFF FOR 5-6 YEARS DUE TO MEDICATION DR. XIE, DR AGARWAL, DR VARGHESE LOOMIS. HAS HAD LIKE 4 MONTHS OF PAIN FREE. HYDROCODONE 5 A DAY. Januaryast Tx: DR. XIE GAVE INJ AND PAIN PUMP 13 YEARS AGO. PT HAS HAD STIMULATOR WELL TOOK THAT OUT AND PUT PUMP IN DOESN'T REMEMBER MUCH ABOUT ALL THAT HAS BEEN DONE TO HIM. [employer] BRAND NEVE BLOCKS, DEEP MUSCLE STIMULATION, PT, TENS UNIT TRACTION AND SURGERY MARIELA DUNCAN is a 73 year old male. - Allergy list reviewed - Allergy list reviewed - Problem list reviewed - Medication reconciliation performed - Medication list reviewed - Last dose of medication? - Pain comes/goes - Primary pain location Right side middle back near spine - Primary pain duration When triggered it lasts days - Secondary pain duration If first pain is not present secondary pain is - Secondary pain location Across back little higher than waist - Pain is throbbing - Pain is sharp - Pain is stinging - Relieved by medication - Relieved by repositioning - Pain aggravated lying down - Pain aggravated sitting - Pain aggravated standing - Pain aggravated by walking - Pain aggravated by bowel movements - Pain aggravated lifting - Pain radiating to both shoulders - Neck pain radiating to both sides - Pain radiates in both hands - Radiating pain in upper left arm - No vertigo Discussion: patient returns after a single opioid epidural bolus dose for pain pump trial. He has had significant improvement within 1 to 2 hours of the initial injection which persisted of the course of 48 hours and is now returned to baseline. During this time you improved functional capacity and activity tolerance including that for ADLs, self-care and recreational activities. His ability to tolerate activity however has returned back to baseline and he now describes a pain score that is at least 6 - 7/10 or greater with activity. He did also note significant issue with the urinary hesitancy in the 1st few hours of the morning the day after the injection. He notes that he had this experience with IV opioids in the past. This did resolved spontaneously. He also has significant pruritus which was global. This worsened with use of antihistamines. This resolved over the course of approximately 72 hours. This may very well be to morphine specifically but to neuraxial opioids in general. Certainly switching the hydromorphone the alleviate this but also a slow and continuous infusion through a intrathecal pump may also show reduced incidence of pruritus compared to a fairly significant single opioid bolus dose in the epidural space. As a result, we would need to consider using hydromorphone is the primary agent in his pump but also keep doses low and titrate slowly. He expressed understanding. We will order permanent intrathecal catheter and pump placement ([employer] SynchroMed 3) and medications today. We will schedule once authorized. We'll see him back one week after permanent placement for wound evaluation. Medication for chronic infusion: hydromorphone 0.125 mg/mL, bupivacaine 5 mg/mL. Will avoid clonidine in the patient's initial pump infusate given his stated allergy although this appears to be more of a side effect than hypersensitivity. Patient also complains of bilateral shoulder pain left greater than right. Examination is positive for likely shoulder arthropathy with minimal impingement. He notes that he is had corticosteroid injections of the shoulder joints the past with significant improvement lasting for 6 months or greater with a 50 to 60% or greater improvement in overall pain control. He would like to proceed with left intra-articular shoulder steroid injection today to recapture pain control as his pain has returned and is now significantly limiting for him despite home exercises topical and oral analgesics. We can certainly scheduled the right side but I do not want him to get is significantly larger dose if steroid in the weeks prior to permanent pump implant as this could potentially increase the risk of postsurgical infection. We'll also prefer that he not get any intra-articular corticosteroids within 2 weeks of his surgical implantation.patient expressed understanding and agreement. Risks, benefits and alternatives the above treatment strategies were discussed in detail the patient who expressed explicit understanding and consent to proceed. Questions were elicited, asked and answered the best of our ability and to his satisfaction today. [place] prescription monitoring database was reviewed and found to be appropriate. PRIOR VISIT (12/06/23): patient returns one week after having his intrathecal pain pump permanently explant in (MELVIN with dysfunctional catheter). He is recovering well with only minimal discomfort at the surgical site. No evidence of dehiscence, discharge, drainage or infection. No new neurologic deficit. Patient has the surgical site is open to air. He is more comfortable with this. Encouraged him to dress these wounds if any discharge or should they rub against his clothes and cause discomfort. otherwise he will continue to do what he has been doing. We will let him return to showers at this point but should avoid soaking for additional 7 days. Otherwise, will schedule the patient for epidural opioid bolus trial. He will follow-up one to 2 weeks afterwards maintaining a pain diary for 48 hours after. Will discuss his response at follow-up.. Of note, patient indicates that hydrocodone his taking postoperatively did cause some pruritus. We need to monitor for this following epidural bolusof morphine.may need to switch to hydromorphone for continuous infusion at the time of implant. Risks, benefits and alternatives the above treatment options were discussed in detail the patient who expressed explicit worsening consent to proceed. Questions were elicited, asked and answered the best of our ability to his satisfaction today. Monitoring database was reviewed and found to be appropriate. PRIOR VISIT (11/20/23): patient returns in follow-up with nonfunctioning intrathecal pain pump. He is now undergone MRI of the thoracic and lumbar spine which feels no evidence of catheter tip granuloma or mass. Catheter tip does appear to be in a reasonable position (posterior, intrathecal, extra medullary at the T9 - 10 level). However we are unable to aspirate to the catheter suggesting catheter tip occlusion. We also unable to inject to the catheter suggesting complete occlusion. Given this in the fact that his pump has likely been empty for an extended period of time there is significant risk of mechanical dysfunction of the pump mechanism but also he is well past MELVIN. As a result he would need a complete revision of his pump. He like to reestablish intrathecal infusion for targeted drug delivery given his chronic pain, however had negative side effects with Prialt. He is never had a trial with opioid analgesics nor has he is ever undergone neuraxial infusion of opioids. For this reason I believe the best route of action would be to completely explant his current system and allow him to recover. Following this we can proceed with a neuraxial opioid bolus trial with morphine as he is relatively opioid na ve. If he tolerates this with reasonable results, we can move forward with permanent implantation however I would recommend replanting on the right side to avoid scar tissue from previous safe implantation. I recommend SynchroMed to or even 3 is available. Recommended a send the catheter beginning with infusion of morphine (if tolerated) at micro dosing levels in combination with clonidine and bupivacaine to address both nociceptive and neuropathic symptoms. Patient is in agreement. Patient understands that he can be NPO from midnight the morning of surgery. He will need a tour driver the day of the surgery. He would need to hold aspirin and NSAIDs for 7 days prior to days after to avoid risk of significant bleeding. He is notify our office if there's any interval change in his medications, allergies, diagnoses or symptoms. He should is especially informative as any new neurologic change or cardiopulmonary symptoms include shortness of breath, dyspnea on exertion, productive cough, increasing peripheral edema or reduced exercise capacity. It is also notify us if there's any fevers, chills night sweats, dysuria, diarrhea or new signs of infection. Preoperative labs will be ordered. He understands that findings on preoperative labs can a poor candidate for anesthesia which would require possible cancellation or rescheduling of his procedure. He will follow-up to weeks after for wound assessment and to begin the process of moving forward with pain pump trial. Risks, benefits and alternatives the above treatment options were discussed in detail the patient who expressed explicit understanding and consent to proceed. Questions were elicited, asked and answered the best of our ability and to his satisfaction today. Only prescription monitoring database was reviewed and found to be appropriate. INITIAL VISIT (10/09/23): Patient is a pleasant 72-year-old male with a long-standing history of diffuse and migratory low back pain as well as a history of chronic pain therapy through interventional specialists dating back to 2012. He had prior surgical fusion. He is had prior lumbar him laminectomy and multiple interventional therapies for management of his back pain. 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 Jacques. This has been revised multiple times due to lead migration and was eventually removed and preference for intrathecal pain pump with catheter at T 10 delivering Prialt. 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 At one point in 2014 he demanded an alternate medication be given to the pump or discontinuation altogether. Per the patient, Dr. Jacques refused to instill any other medication to the pump out of concern over risk of development of granuloma. This reason, pump was converted to saline at minimal dose and patient was eventually lost to follow-up. Apparently the patient moved to [place] for the warmer weather but found it to be to warm and low back. He began seen different pain specialist at [facility] to include Drs. Dumont, Varghese and Vladislav. Over the course of the next 7 use. Throughout this time however his pump had never been evaluated or any attempt made to alter the infusion. Apparently there was nobody at [facility] willing to manage his pump. They discussed sending him [place] to [facility] () but patient refused due to concerns over quality care (patient apparently had a friend who had a complication from a total knee arthroplasty). As a result, patient never we accessed reprogrammed his pump. He is never had pump replaced of note is well beyond its expected MELVIN he claims pump is been beeping which may indicate pending failure or perhaps even reaching the low-volume alarm of as the salient is infusing has there been refilled either. Either way the pump is likely beyond its expected lifespan and will need to be replaced. Patient is interested in potentially doing this as oral opioids have not been effective and is looking for alternative treatments. Of note, prior to his last visit in July [address] Loomis there been plans to move forward with medial branch blocks with progression to thermal RF ablation. However, as the patient did not feel he is been adequately treated, elected to discontinue care at this facility and said has been referred hours to his primary care provider, Dr. Matthew. As patient lives close to our facility, he elected to be seen at the [place] location. In summary, the patient is interested in reestablishing his pain pump therapies but with an medicine other than Prialt as this caused severe memory loss. He is not interested in a cane oral opioids and he is somewhat underwhelmed with his response to surgery and injections. Although on examination I do believe he is a candidate for a trial of medial branch blocks with progression to thermal RF ablation as indicated by Dr. Loomis, he is now complaining of intermittent thoracic back pain of uncertain etiology. He is not convinced that interventions will help with all of his pain in both of which are equally severe.However, he is open to considering them if we think they would help him. Regardless, he would still like to pursue reestablishment of targeted drug delivery through his implanted pump. Before we can agreed to continue to work with his pump, we will need to undergo some additional evaluation. Recommend x-rays to evaluate for any new pathology as well as to isolate catheter tip location. Will obtain MRI of the thoracic and lumbar spine without contrast given his prior history of surgery to rule out granuloma, new pathology or evidence of nerve root compromise, Modic endplate change or ligamentum flavum hypertrophy. We'll also evaluate for any interval hardware failure. We will order intrathecal catheter study to evaluate integrity. Given the fact the patient is running saline and has not had anything other than Prialt in his catheter which has long since been removed, we can afford to flush the catheter if not immediately patent if MRI reveals no evidence of granuloma. The catheter salvageable would prefer to keep this rather than removing or replacing. Either way, the pain pump itself will need to be revised. Recommended 20 mL SynchroMed 2 or 3 depending on what is available at the time. As the patient is completely na ve to intrathecal opioids, he will need to undergo some sort of a trial. If the catheter is patent and functional, we can run his trial through the pump as a continuous infusion at a low dose. Should he not tolerate morphine, can consider converting to hydromorphone. Can also consider the addition of clonidine and bupivacaine to address lower extremity symptoms as they occur or become more prominent and concerning. Will obtain the above imaging studies and will see the patient back shortly thereafter. That time will determine the next best steps which would include pain pump replacement with possible catheter revision. Once completed, will conduct trial low dose morphine to the catheter before adding adjuvant medication.In order to prepare for this, the patient will need to be abstinent from all opioid analgesics for at least a 6 week period. His last dose of opioid was early September. He is self wean due to lack of benefit. He will not restart until mid October when we can schedule the patient's pump replacement. Risks, benefits and alternatives the above treatment options were discussed in detail the patient who expressed explicit understanding and consent to proceed. Questions were elicited, asked and answered the best of our ability and to his satisfaction today. [place] [place] prescription monitoring database was reviewed and found to be appropriate. Imaging: All relevant imaging available was personally reviewed with the patient today with the following tests and results noted: [None available. Will obtain reports, patient will provide images at follow up.] Social History Description Last Updated No recent change in sleep 10/09/2023 Last Documented On 4 3:44PM ; [facility] Alcohol 10/09/2023 Last Documented On 4 3:44PM ; [facility] Amount of alcohol per day: 1-2 beers krissy barrera pa 10/09/2023 Last Documented On 4 3:44PM ; [facility] Not using drugs 10/09/2023 Last Documented On 4 3:44PM ; [facility] A recent decrease in exercise activity 1 09/07/2022 Last Documented On 4 3:44PM ; [facility] Tobacco non-user 06/21/2022 Last Documented On 4 3:44PM ; [facility] No travel 06/26/2020 Last Documented On 4 3:44PM ; [facility] Smoking Status Unknown Procedures and Surgical History Includes: Procedures from this encounter Procedures Code Diagnosis Performing Provider Service Location Service Date ARTHROCENTESIS/ PIRATION MAJOR JOINT W/ US (LEFT) Primary osteoarthritis, left shoulder, Pain in unspecified shoulder BRANT MURILLO MD [facility] 01/03/2024 Last Documented On 4 2:15PM ; [facility] FEE (Signi/Sep Eval & Man) G0463 Postlaminectomy syndrome, not elsewhere classified, Other spondylosis, lumbosacral region, Dorsalgia, unspecified, Other chronic pain BRANT MURILLO MD [facility] 01/03/2024 Last Documented On 4 2:15PM ; [facility] ARTHROCENTESIS/ASPRIATION MAJOR JOINT W/ US (LEFT) Primary osteoarthritis, left shoulder, Pain in unspecified shoulder BRANT MURILLO MD [facility] 01/03/2024 Last Documented On 4 2:15PM ; [facility] KENALOG INJECTION 10MG J3301 Primary osteoarthritis, left shoulder, Pain in unspecified shoulder BRANT MURILLO MD [facility] 01/03/2024 Last Documented On 4 2:15PM ; [facility] surgery Last Documented On 4 3:44PM ; [facility] walker Last Documented On 4 3:44PM ; [facility] use of tobacco assessment performed 1000F Last Documented On 4 3:44PM ; [facility] patient screened for future fall risk: documentation of any fall with injury in past year 1100F Last Documented On 4 3:44PM ; [facility] standardized depression screening: negative for symptoms 3351F Last Documented On 4 3:44PM ; [facility] review of medications documented 1160F Last Documented On 4 3:44PM ; [facility] screening for adult depression: impressi on and score 0 Last Documented On 4 3:44PM ; [facility] Clinical summary provided to patient Last Documented On 4 3:44PM ; [facility] SOAPP-R: total score 2 Last Documented On 4 3:44PM ; [facility] Surgical History Last Updated No Pacemaker 10/09/2023 Last Documented On 4 3:44PM ; [facility] Surgical / procedural history Surgery Last Documented On 4 3:44PM ; [facility] Medical History Includes: Medical History addressed during this encounter Description Last Updated Denies a fear of falling. 11/20/2023 Last Documented On 4 3:44PM ; [facility] Has had no fall in the last 12 months. 0 11/20/2023 Last Documented On 4 3:44PM ; [facility] Blood pressure was high 10/09/2023 Last Documented On 4 3:44PM ; [facility] Hypertension 10/09/2023 Last Documented On 4 3:44PM ; [facility] No exposure to a contagious disease 09/20 Last Documented On 4 3:44PM ; [facility] No previous psychiatric treatment 2023 Last Documented On 4 3:44PM ; [facility] Not taking OTC medications 10/09/2023 Last Documented On 4 3:44PM ; [facility] Taking medication for high blood pressur e 10/09/2023 Last Documented On 4 3:44PM ; [facility] Back brace 10/09/2023 Last Documented On 4 3:44PM ; [facility] CT/MRI Backneck 10/09/2023 Last Documented On 4 3:44PM ; [facility] Currently wearing eyeglasses 10/09/2023 Last Documented On 4 3:44PM ; [facility] Deep muscle stimulation 10/09/2023 Last Documented On 4 3:44PM ; [facility] Injection/Nerve blocks 10/09/2023 Last Documented On 4 3:44PM ; [facility] Moderate to severe pain 10/09/2023 Last Documented On 4 3:44PM ; [facility] Myelogram Neck 10/09/2023 Last Documented On 4 3:44PM ; [facility] NCV/EMG Back 10/09/2023 Last Documented On 4 3:44PM ; [facility] No Spinal cord stimulator 10/09/2023 Last Documented On 4 3:44PM ; [facility] Pain Clinic 10/09/2023 Last Documented On 4 3:44PM ; [facility] Pain Pump 10/09/2023 Last Documented On 4 3:44PM ; [facility] Physical therapy 10/09/2023 Last Documented On 4 3:44PM ; [facility] Please list all illnesses/co nditions you have been diagnosed with: See paperwork 10/09/2023 Last Documented On 4 3:44PM ; [facility] Please list all surgeries: T onsilsappendix bowel resection cervical fusion, artificial disc spinal fibrillation pain pumpknee surgery prostate surgery cancerskin cancerdiseconomy lower spine 10/09/2023 Last Documented On 4 3:44PM ; [facility] Traction 10/09/2023 Last Documented On 4 3:44PM ; [facility] Treatment with TENS unit 10/09/2023 Last Documented On 4 3:44PM ; [facility] Ultrasound Back 10/09/2023 Last Documented On 4 3:44PM ; [facility] Uses a cane for support 10/09/2023 Last Documented On 4 3:44PM ; [facility] X-rays Backneck 10/09/2023 Last Documented On 4 3:44PM ; [facility] Taking OTC pain medication /fever. Using Tylenol 07/07/2023 Last Documented On 4 3:44PM ; [facility] Family History Includes: Family History addressed during this encounter Description Last Updated Family history of ischemic heart disease 10/09/2023 Last Documented On 4 3:44PM ; [facility] Maternal history of family history of is chemic heart disease 10/09/2023 Last Documented On 4 3:44PM ; [facility] Review of Systems Includes: Review of Systems from this encounter Systemic: No systemic symptoms other then noted and no recent weight loss. Head: No head symptoms other then noted. Neck: No neck pain. Otolaryngeal: No otolaryngeal symptoms other than noted. Hearing loss, earache, discharge from the ears, and tinnitus. Cardiovascular: No cardiovascular symptoms other than noted. Pulmonary: No pulmonary symptoms other than noted. Gastrointestinal: No difficulty chewing and no dysphagia. Diarrhea and bowel/bladder changes. Genitourinary: No genitourinary symptoms other than noted. Endocrine: No endocrine symptoms other than noted. Hematologic: No easy bleeding and no tendency for easy bruising. Musculoskeletal: No musculoskeletal symptoms other than noted. Back pain, muscle cramps, and pain localized to one or more joints. Neurological: No neurological symptoms other than noted, no fainting passing out with needles or medical procedures, and no ataxia. Psychological: Fear of falling. No sleep apnea. Skin: No skin symptoms other than noted. Past Medical: A fall in the past 6 months TOILET SET BROKE OFF THATS WHEN PAIN STARTED BACK UP. Mental Status Includes: Mental Status from this encounter No Mental Status Recorded Functional Status Includes: Functional Status from this encounter No Functional Status Recorded Physical Exam Includes: Physical Exam from this encounter Allergies Includes: Active Allergies Substance Type Reaction Onset Date Resolved Date Statu s cloNIDine HCl Allergy 12/06/2023 Activ e Last Documented On 01/03/2024 3:45PM ; [facility] Note: elevates blood pressure Encounters Encounter Provider Location Date Check-In Time Check-Out Time Diagnosis PAIN MANAGEMENT FOLLOW UP BRANT MURILLO MD [facility] 024 3:42PM 4:45PM Postlaminectomy Syndrome,Mech Complication of Nervous System Device, Implant, Graft,Chronic Pain,Spondylosis Lumbosacral Region,Dorsopathy Dorsalgia Pain in Thoracic Spine,Dorsalgia,Os teoarthritis Localized Primary Shoulder Left,Osteoarthriti s Localized Primary Shoulder Right Glenohumeral Joint,Arthralgia - Shoulder Region Bilateral Insurance Includes: Active Insurance Policies Plan Name Member ID Group # Subscriber Relationship Effect ana Dates 1 - MEDICARE PART A CLAIMS/NGS [id number] MARIELA DUNCAN Self 2 - [facility] [id number] MARIELA Pearson Clinical Notes Includes: Clinical Notes from this encounter * Progress note Date Encounter Last Documented by 01/03/2024 PAIN MANAGEMENT FOLLOW UP Last d ocumented on 01/03/2024; 6:07 PM, BRANT MURILLO MD; [facility] Chief Complaint The Chief Complaint is: Patient here today to follow up from intrathecal pain pump trialThe Chief Complaint is: Pt. here today for left shoulder steroid injection under ultrasound guidance. History of Present Illness PHQ-9 Score: 0 Date:10-09-23 SOAPP-R Score: 2 Date:10-09-23 Oswestry Score: 62 Date:10-09-23 Pain Location: LOWER BACK AT THE WAIST AND MID BACK, RT SIDE LEG Quality: BASEBALL, KNOT IN BACK , KNIFE, SHARP SHOOTING, PINS AND NEEDLES Radiation: DOWN FRONT OF LEG TO KNEE Severity: SEVERE Timing: ALL DAY LONG Associated Sx: DIARRHEA, BOWEL PROBLEMS Aggravating Factors:LEANING BACK, DIFFICULTY SLEEPING OR LAYING ON THE BACK IN AD OUT CAR. SITTING AND STANDING IN INTERVALS, ABOUT 10 MINUTES Alleviating Factors:PAIN PUMP HAS BEEN TURNED OFF FOR 5-6 YEARS DUE TO MEDICATION DR. XIE, DR AGARWAL, DR VARGHESE LOOMIS. HAS HAD LIKE 4 MONTHS OF PAIN FREE. HYDROCODONE 5 A DAY. JANUARY 2023 Past Tx: DR. XIE GAVE INJ AND PAIN PUMP 13 YEARS AGO. PT HAS HAD STIMULATOR WELL TOOK THAT OUT AND PUT PUMP IN DOESN'T REMEMBER MUCH ABOUT ALL THAT HAS BEEN DONE TO HIM. [employer] BRAND NEVE BLOCKS, DEEP MUSCLE STIMULATION, PT, TENS UNIT TRACTION AND SURGERY MARIELA DUNCAN is a 73 year old male. - Allergy list reviewed - Allergy list reviewed - Problem list reviewed - Medication reconciliation performed - Medication list reviewed - Last dose of medication? - Pain comes/goes - Primary pain location Right side middle back near spine - Primary pain duration When triggered it lasts days - Secondary pain duration If first pain is not present secondary pain is - Secondary pain location Across back little higher than waist - Pain is throbbing - Pain is sharp - Pain is stinging - Relieved by medication - Relieved by repositioning - Pain aggravated lying down - Pain aggravated sitting - Pain aggravated standing - Pain aggravated by walking - Pain aggravated by bowel movements - Pain aggravated lifting - Pain radiating to both shoulders - Neck pain radiating to both sides - Pain radiates in both hands - Radiating pain in upper left arm - No vertigo Discussion: patient returns after a single opioid epidural bolus dose for pain pump trial. He has had significant improvement within 1 to 2 hours of the initial injection which persisted of the course of 48 hours and is now returned to baseline. During this time you improved functional capacity and activity tolerance including that for ADLs, self-care and recreational activities. His ability to tolerate activity however has returned back to baseline and he now describes a pain score that is at least 6 - 7/10 or greater with activity. He did also note significant issue with the urinary hesitancy in the 1st few hours of the morning the day after the injection. He notes that he had this experience with IV opioids in the past. This did resolved spontaneously. He also has significant pruritus which was global. This worsened with use of antihistamines. This resolved over the course of approximately 72 hours. This may very well be to morphine specifically but to neuraxial opioids in general. Certainly switching the hydromorphone the alleviate this but also a slow and continuous infusion through a intrathecal pump may also show reduced incidence of pruritus compared to a fairly significant single opioid bolus dose in the epidural space. As a result, we would need to consider using hydromorphone is the primary agent in his pump but also keep doses low and titrate slowly. He expressed understanding. We will order permanent intrathecal catheter and pump placement ([employer] SynchroMed 3) and medications today. We will schedule once authorized. We'll see him back one week after permanent placement for wound evaluation. Medication for chronic infusion: hydromorphone 0.125 mg/mL, bupivacaine 5 mg/mL. Will avoid clonidine in the patient's initial pump infusate given his stated allergy although this appears to be more of a side effect than hypersensitivity. Patient also complains of bilateral shoulder pain left greater than right. Examination is positive for likely shoulder arthropathy with minimal impingement. He notes that he is had corticosteroid injections of the shoulder joints the past with significant improvement lasting for 6 months or greater with a 50 to 60% or greater improvement in overall pain control. He would like to proceed with left intra-articular shoulder steroid injection today to recapture pain control as his pain has returned and is now significantly limiting for him despite home exercises topical and oral analgesics. We can certainly scheduled the right side but I do not want him to get is significantly larger dose if steroid in the weeks prior to permanent pump implant as this could potentially increase the risk of postsurgical infection. We'll also prefer that he not get any intra-articular corticosteroids within 2 weeks of his surgical implantation.patient expressed understanding and agreement. Risks, benefits and alternatives the above treatment strategies were discussed in detail the patient who expressed explicit understanding and consent to proceed. Questions were elicited, asked and answered the best of our ability and to his satisfaction today. [place] prescription monitoring database was reviewed and found to be appropriate. PRIOR VISIT (12/06/23): patient returns one week after having his intrathecal pain pump permanently explant in (MELVIN with dysfunctional catheter). He is recovering well with only minimal discomfort at the surgical site. No evidence of dehiscence, discharge, drainage or infection. No new neurologic deficit. Patient has the surgical site is open to air. He is more comfortable with this. Encouraged him to dress these wounds if any discharge or should they rub against his clothes and cause discomfort. otherwise he will continue to do what he has been doing. We will let him return to showers at this point but should avoid soaking for additional 7 days. Otherwise, will schedule the patient for epidural opioid bolus trial. He will follow-up one to 2 weeks afterwards maintaining a pain diary for 48 hours after. Will discuss his response at follow-up.. Of note, patient indicates that hydrocodone his taking postoperatively did cause some pruritus. We need to monitor for this following epidural bolusof morphine.may need to switch to hydromorphone for continuous infusion at the time of implant. Risks, benefits and alternatives the above treatment options were discussed in detail the patient who expressed explicit worsening consent to proceed. Questions were elicited, asked and answered the best of our ability to his satisfaction today. Monitoring database was reviewed and found to be appropriate. PRIOR VISIT (11/20/23): patient returns in follow-up with nonfunctioning intrathecal pain pump. He is now undergone MRI of the thoracic and lumbar spine which feels no evidence of catheter tip granuloma or mass. Catheter tip does appear to be in a reasonable position (posterior, intrathecal, extra medullary at the T9 - 10 level). However we are unable to aspirate to the catheter suggesting catheter tip occlusion. We also unable to inject to the catheter suggesting complete occlusion. Given this in the fact that his pump has likely been empty for an extended period of time there is significant risk of mechanical dysfunction of the pump mechanism but also he is well past MELVIN. As a result he would need a complete revision of his pump. He like to reestablish intrathecal infusion for targeted drug delivery given his chronic pain, however had negative side effects with Prialt. He is never had a trial with opioid analgesics nor has he is ever undergone neuraxial infusion of opioids. For this reason I believe the best route of action would be to completely explant his current system and allow him to recover. Following this we can proceed with a neuraxial opioid bolus trial with morphine as he is relatively opioid na ve. If he tolerates this with reasonable results, we can move forward with permanent implantation however I would recommend replanting on the right side to avoid scar tissue from previous safe implantation. I recommend SynchroMed to or even 3 is available. Recommended a send the catheter beginning with infusion of morphine (if tolerated) at micro dosing levels in combination with clonidine and bupivacaine to address both nociceptive and neuropathic symptoms. Patient is in agreement. Patient understands that he can be NPO from midnight the morning of surgery. He will need a tour driver the day of the surgery. He would need to hold aspirin and NSAIDs for 7 days prior to days after to avoid risk of significant bleeding. He is notify our office if there's any interval change in his medications, allergies, diagnoses or symptoms. He should is especially informative as any new neurologic change or cardiopulmonary symptoms include shortness of breath, dyspnea on exertion, productive cough, increasing peripheral edema or reduced exercise capacity. It is also notify us if there's any fevers, chills night sweats, dysuria, diarrhea or new signs of infection. Preoperative labs will be ordered. He understands that findings on preoperative labs can a poor candidate for anesthesia which would require possible cancellation or rescheduling of his procedure. He will follow-up to weeks after for wound assessment and to begin the process of moving forward with pain pump trial. Risks, benefits and alternatives the above treatment options were discussed in detail the patient who expressed explicit understanding and consent to proceed. Questions were elicited, asked and answered the best of our ability and to his satisfaction today. Only prescription monitoring database was reviewed and found to be appropriate. INITIAL VISIT (10/09/23): Patient is a pleasant 72-year-old male with a long-standing history of diffuse and migratory low back pain as well as a history of chronic pain therapy through interventional specialists dating back to 2012. He had prior surgical fusion. He is had prior lumbar him laminectomy and multiple interventional therapies for management of his back pain. 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 Jacques. This has been revised multiple times due to lead migration and was eventually removed and preference for intrathecal pain pump with catheter at T 10 delivering Prialt. 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 At one point in 2014 he demanded an alternate medication be given to the pump or discontinuation altogether. Per the patient, Dr. Jacques refused to instill any other medication to the pump out of concern over risk of development of granuloma. This reason, pump was converted to saline at minimal dose and patient was eventually lost to follow-up. Apparently the patient moved to [place] for the warmer weather but found it to be to warm and low back. He began seen different pain specialist at [facility] to include Varghese Hammer and Vladislav. Over the course of the next 7 use. Throughout this time however his pump had never been evaluated or any attempt made to alter the infusion. Apparently there was nobody at [facility] willing to manage his pump. They discussed sending him [place] to [facility] () but patient refused due to concerns over quality care (patient apparently had a friend who had a complication from a total knee arthroplasty). As a result, patient never we accessed reprogrammed his pump. He is never had pump replaced of note is well beyond its expected MELVIN he claims pump is been beeping which may indicate pending failure or perhaps even reaching the low-volume alarm of as the salient is infusing has there been refilled either. Either way the pump is likely beyond its expected lifespan and will need to be replaced. Patient is interested in potentially doing this as oral opioids have not been effective and is looking for alternative treatments. Of note, prior to his last visit in July [address] Loomis there been plans to move forward with medial branch blocks with progression to thermal RF ablation. However, as the patient did not feel he is been adequately treated, elected to discontinue care at this facility and said has been referred hours to his primary care provider, Dr. Matthew. As patient lives close to our facility, he elected to be seen at the [place] location. In summary, the patient is interested in reestablishing his pain pump therapies but with an medicine other than Prialt as this caused severe memory loss. He is not interested in a cane oral opioids and he is somewhat underwhelmed with his response to surgery and injections. Although on examination I do believe he is a candidate for a trial of medial branch blocks with progression to thermal RF ablation as indicated by Dr. Loomis, he is now complaining of intermittent thoracic back pain of uncertain etiology. He is not convinced that interventions will help with all of his pain in both of which are equally severe.However, he is open to considering them if we think they would help him. Regardless, he would still like to pursue reestablishment of targeted drug delivery through his implanted pump. Before we can agreed to continue to work with his pump, we will need to undergo some additional evaluation. Recommend x-rays to evaluate for any new pathology as well as to isolate catheter tip location. Will obtain MRI of the thoracic and lumbar spine without contrast given his prior history of surgery to rule out granuloma, new pathology or evidence of nerve root compromise, Modic endplate change or ligamentum flavum hypertrophy. We'll also evaluate for any interval hardware failure. We will order intrathecal catheter study to evaluate integrity. Given the fact the patient is running saline and has not had anything other than Prialt in his catheter which has long since been removed, we can afford to flush the catheter if not immediately patent if MRI reveals no evidence of granuloma. The catheter salvageable would prefer to keep this rather than removing or replacing. Either way, the pain pump itself will need to be revised. Recommended 20 mL SynchroMed 2 or 3 depending on what is available at the time. As the patient is completely na ve to intrathecal opioids, he will need to undergo some sort of a trial. If the catheter is patent and functional, we can run his trial through the pump as a continuous infusion at a low dose. Should he not tolerate morphine, can consider converting to hydromorphone. Can also consider the addition of clonidine and bupivacaine to address lower extremity symptoms as they occur or become more prominent and concerning. Will obtain the above imaging studies and will see the patient back shortly thereafter. That time will determine the next best steps which would include pain pump replacement with possible catheter revision. Once completed, will conduct trial low dose morphine to the catheter before adding adjuvant medication.In order to prepare for this, the patient will need to be abstinent from all opioid analgesics for at least a 6 week period. His last dose of opioid was early September. He is self wean due to lack of benefit. He will not restart until mid October when we can schedule the patient's pump replacement. Risks, benefits and alternatives the above treatment options were discussed in detail the patient who expressed explicit understanding and consent to proceed. Questions were elicited, asked and answered the best of our ability and to his satisfaction today. [place] prescription monitoring database was reviewed and found to be appropriate. Imaging: All relevant imaging available was personally reviewed with the patient today with the following tests and results noted: [None available. Will obtain reports, patient will provide images at follow up.] Current Medication - Albuterol Sulfate HFA 108 (90 Base) MCG/ACT Inhalation Aerosol Solution Inhale 1-2 puffs Q4-6 H PRN cough, sob, wheezing., 30 days, 0 refills - ALPRAZolam 1 MG Oral Tablet 30 days, 0 refills - amLODIPine Besylate 10 MG Oral Tablet 30 days, 0 refills - Atorvastatin Calcium 40 MG Oral Tablet 30 days, 0 refills - Cyclobenzaprine HCl 10 MG Oral Tablet One tablet three times a day as needed, 10 days, 0 refills - DULoxetine HCl 60 MG Oral Capsule Delayed Release Particles 30 days, 0 refills - Ezetimibe 10 MG Oral Tablet 30 days, 0 refills - glipiZIDE ER 2.5 MG Oral Tablet Extended Release 24 Hour 1 capsule daily 30 days, 0 refills - HYDROcodone-Acetaminophen 5-325 MG Oral Tablet Take 1-2 tab PO Q 4 ? 6 hours maximum 4 per day for acute postoperative pain., 15 days, 0 refills - Levothyroxine Sodium 75 MCG Oral Tablet 30 days, 0 refills - Losartan Potassium-HCTZ 100-12.5 MG Oral Tablet 30 days, 0 refills - Montelukast Sodium 10 MG Oral Tablet 30 days, 0 refills - Omeprazole 40 MG Oral Capsule Delayed Release 30 days, 0 refills Past Medical/Surgical History Reported: Traction, back brace, Injection/Nerve blocks, Pain Clinic, Deep muscle stimulation, Treatment with TENS unit, Physical therapy, Please list all illnesses/conditions you have been diagnosed with: See paperwork, and Please list all surgeries: Tonsilsappendix bowel resection cervical fusion, artificial disc spinal fibrillation pain pumpknee surgery prostate surgery cancerskin cancerdiseconomy lower spine. Medical: No previous psychiatric treatment. Currently wearing eyeglasses, orthopedic history Left Knee Score mild pain Moderate to severe pain, Uses a cane for support, and Hypertension. No Spinal cord stimulator. Pain Pump. Surgical / Procedural: Surgical / procedural history Surgery. No Pacemaker. Medications: Taking OTC pain medication /fever. Using Tylenol and medication for high blood pressure. Not taking OTC medications. Tests: Blood pressure was high, X-rays Backneck, CT/MRI Backneck, Myelogram Neck, Ultrasound Back, and NCV/EMG Back. Exposure: No exposure to a contagious disease. Physical Trauma: Has had no fall in the last 12 months. and Denies a fear of falling. Social History Behavioral: Amount of alcohol per day: 1-2 beers whiskey pa. Tobacco use: Tobacco non-user. Alcohol: Alcohol. Drug Use: Not using drugs. Habits: No recent change in sleep. A recent decrease in exercise activity. Travel: No travel. Allergies - cloNIDine HCl Family History Ischemic heart disease Maternal: Ischemic heart disease Review Of Systems Systemic: No systemic symptoms other then noted and no recent weight loss. Head: No head symptoms other then noted. Neck: No neck pain. Otolaryngeal: No otolaryngeal symptoms other than noted. Hearing loss, earache, discharge from the ears, and tinnitus. Cardiovascular: No cardiovascular symptoms other than noted. Pulmonary: No pulmonary symptoms other than noted. Gastrointestinal: No difficulty chewing and no dysphagia. Diarrhea and bowel/bladder changes. Genitourinary: No genitourinary symptoms other than noted. Endocrine: No endocrine symptoms other than noted. Hematologic: No easy bleeding and no tendency for easy bruising. Musculoskeletal: No musculoskeletal symptoms other than noted. Back pain, muscle cramps, and pain localized to one or more joints. Neurological: No neurological symptoms other than noted, no fainting passing out with needles or medical procedures, and no ataxia. Psychological: Fear of falling. No sleep apnea. Skin: No skin symptoms other than noted. Past Medical: A fall in the past 6 months TOILET SET BROKE OFF THATS WHEN PAIN STARTED BACK UP. Physical Findings - Vitals taken 01/03/2024 03:47 pm BP-Sitting R 126/88 mmHg BP Cuff Size Regular Pulse Rate-Sitting 89 bpm Pulse Rhythm Regular Respiration Rate 20 per min Temp-Oral 98 F Height 75 in Weight 268 lbs Body Mass Index 33.5 kg/m2 Body Surface Area 2.5 m2 Pain Level 5 Oxygen Saturation 97 % Musculoskeletal System: General/bilateral: Musculoskeletal Scales: Value Lumbar oswestry score 62 Psychiatric: Psychiatric: Value PHQ9 score: 0 HEENT: NC/AT. Anicteric. Clear Conjunctiva. PERRLA. MM's pink/moist. No lesions of nasal mucosa. No discharge via nares. No lesions of EAC. No discharge of EAC. No lesions of oropharynx. Oropharynx without erythema or exudate. Neck supple. No thyromegally. No palpable masses. No lymphadenopathy in cervical chain bilaterally. CVS: RRR. No murmurs. No gallops. No rubs. No peripheral edema. Peripheral pulses palpable in all extremities. Pulmonary: CTA bilaterally. No wheezes. No rales. No crackles. No rubs. Spine/MSK: Loss of normal lumbar lordosis. Marked point tenderness over the lumbosacral facet joints on the right side with positive facet loading maneuver bilaterally right greater than left. Nontender of the bilateral SI joints with negative provocative maneuvers including thigh thrust, Gretel and Gaenslen's maneuver. Negative pelvic compression and distraction maneuvers.. Negative straight leg raise. Negative Stinchfield. Negative lateral rhythm compression test of the bilateral hips. Gait: Not antalgic. No steppage gait. No Trendelenburg gait. No circumspected gait pattern. Heel walk normal. Toe walk normal. Tandem gait normal. Neuro: Awake. Alert. Oriented x3. DTR's intact in all extremities. DTR's equal in all extremities. No focal neurologic deficit. [id number] normal bilaterally. Babinski downgoing. Psych: No apparent distress. Mood normal. Affect normal. No pain behaviors. Tests Educational Testing: Questionnaires PHQ-9: Value SOAPP-R: total score 2 Assessment - [M19.011 - Primary osteoarthritis, right shoulder] Localized primary osteoarthritis of right shoulder glenohumeral joint - [M19.012 - Primary osteoarthritis, left shoulder] Localized primary osteoarthritis of left shoulder - [M25.519 - Pain in unspecified shoulder] Arthralgia of bilateral shoulder region - [M54.9 - Dorsalgia, unspecified] DORSALGIA - [M96.1 - Postlaminectomy syndrome, not elsewhere classified] Postlaminectomy syndrome - [M47.897 - Other spondylosis, lumbosacral region] Lumbosacral spondylosis - [M54.6 - Pain in thoracic spine] Pain in thoracic spine - [G89.29 - Other chronic pain] Chronic pain - [T85.695S - Other mechanical complication of other nervous system device, implant or graft, sequela] Mechanical complication of nervous system device, implant, and graft Therapy - Other Administered 2 mL of Xylocaine 1 % on 01/03/24 04:00p, administered by Dr. Murillo for local Administered 2 mL of Sodium Chloride 0.9 % on 01/03/24 04:00p, administered by Dr. Murillo for local Administered 1 mL of Kenalog 40 MG/ML on 01/03/24 04:00p, administered by Dr. Murillo in left shoulder joint Administered 5 mL of Sensorcaine 0.5 % on 01/03/24 04:00p, administered by Dr. Murillo in left shoulder joint - Surgery. - Clinical summary provided to patient. - Walker. Plan StartCited - Postlaminectomy syndrome, not elsewhere classified Pain Management CPT: Implant spinal canal catheter w/o laminectomy, Intraspinal catheter, Programmable infusion pain pump, Placement of programmable pain pump Instructions: Percutaneous placement of permanent Ascenda intrathecal catheter and SynchroMed 3 programmable infusion pain pump for targeted drug delivery under fluoroscopic guidance. General anesthesia with local in the left lateral decubitus position. PCP clearance. CBC, BMP preop day of procedure. Diabetic. No blood thinners. Hold ASA/NSAIDs times 7 days prior and 48 hours after. PIV/2 g IV Ancef precision lens centerer and edger to operating room. Follow-up in one to 2 weeks. EndCited StartCited - Primary osteoarthritis, left shoulder Pain Management CPT/Joints and Bursa Inj: Major joint/bursa injection w/ U/S Instructions: Left shoulder intra-articular corticosteroid injection under ultrasound guidance Performed same day. Follow-up in 2 to 3 weeks. EndCited StartCited - Primary osteoarthritis, right shoulder Pain Management CPT/Joints and Bursa Inj: Major joint/bursa injection w/ U/S Instructions: Right shoulder intra-articular corticosteroid injection under ultrasound guidance. Diabetic. No blood thinners. No hold ASA/NSAIDs. No PIV/ABX. Follow-up one to 2 weeks after pain pump placement. EndCited Practice Management Use of tobacco assessment performed and patient screened for future fall risk documentation of any fall with injury in past year Review of medications documented; Standardized depression screening: negative for symptoms and for adult impression and score 0. A total of 31 minutes were spent on this patient's evaluation, as above, with greater than 50% of this time spent in direct [id number] counseling and coordination of care. Results of this interaction were communicated directly to the patient's referring and/or primary care provider. All imaging studies and test results discussed in the above document were personally reviewed and evaluated by the performing provider. For all patients on acute or chronic opioids, ongoing need for opioid analgesia is assessed at each visit with consideration of discontinuation or wean to lowest effective dose when possible and appropriate. Contents of this document have been edited for correctness, but may be subject to typographical or feeder switchboard operator errors. Verify all diagnoses, medications, dosages, and patient instructions with patient and/or the originator of this document. Health Reminders - Assess BMI satisfied 01/03/2024. - Assess Need for CT Lung Screen satisfied 01/03/2024. - Assess Screening for Fall Risk satisfied 01/03/2024. - Assess Tobacco Use satisfied 01/03/2024. - Depression Screening satisfied 01/03/2024. - Follow up plan for Depression Screening satisfied 01/03/2024. User Defined 1 LEFT SHOULDER STEROID INJECTION UNDER ULTRASOUND GUIDANCE: The procedure was described in detail to the patient. Alternatives to the procedure (including doing nothing) and risks associated with the procedure were explained included possible infection, bleeding/bruising, deformity, allergic reaction to medication or failure to treat pain. The patient has also had an explanation of the side effects of corticosteroid and risk of immunosupression or elevation of blood pressure and/or blood sugars. Allergies confirmed. The patient has had an opportunity to have all questions answered both on the day of initial consultation and again today. The patient wishes to proceed, believes that the potential for benefit outweighs risk of harm, and has voluntarily signed a procedure specific consent form. DESCRIPTIONS OF PROCEDURE: The patient was placed in the right lateral position and made comfortable with pillows under the head and between the knees, with the affected arm bent at 45 degrees at the elbow and supported with a pillow. Posterior joint recess, deep to the adjacent labrum, was identified by ultrasound in the transverse axial view using the curvalinear ultrasound at 10-12 MHz and marked with a sterile marker. Area was cleansed and draped in the typical sterile fashion with a 3ml chloraprep applicator using aseptic technique, which was also utilized throughout. No more than 5 mls of 1% Lidocaine was used to anesthetize the injection site via infiltration using a 27g 1.25 inch needle after negative aspiration. Following this, a 22 gauge, 3.5 -inch quincke spinal needle was advanced into the appropriate tissue plane under ultrasound guidance. After negative aspiration for blood or bodily fluid, a 5ml solution containing 40mg triamcinolone mixed with 0.5% PF Bupivacaine was injected into the left shoulder joint without difficulty. Injectate was visualized entering the appropriate tissue plane under live ultrasonography. The needle was withdrawn completely intact. Sterile bandage was applied. The patient appeared to tolerate the procedure well with no evidence of complication. Images were saved to the patient's chart. Patient was evaluated for an appropriate period of time after the procedure with no evidence of complications and eventually discharged under their own power with instructions to monitor for signs oif infection (including but not limited to fever, chills, night sweats, increased pain or reduced motility, redness, swelling, warmth, pain or discharge at the site) and to report immediately to our office or the nearest ED if after hours should these signs and/or symptoms develop. Appropriate post-procedural instructions regarding wound care and activity restrictions were provided to the patient in verbal and written form prior to discharge from the clinic. User Defined 25 Patient education about home safety plans for prevention of falls: Patient completed a Fall risk assesment and was provided fall risk education materials.
--- OUTSIDE RECORDS SUMMARY | 2024-10-27 09:58 | XMS_ITS | Clinical Summary ---
Author Organization [facility] Address [address] [place] [address] Phone Care Team Providers Care Tangled Yarn Spool Straightener Name Role Phone ROBIN DAVIS MD Primary Care Provider [phone] BRANT GOMEZ MD [phone] Reason for Visit and Chief Complaint POST PROCEDURE PHONE CALL Plan of Treatment Pending Tests Order Diagnosis Results Due Ordering Provider Pain Management CPT Implant spinal canal catheter w/o laminectomy Postlaminectomy syndrome, not elsewhere classified 02/02/24 BRANT GOMEZ MD Last Documented On 4 2:24PM ; [facility] Pain Management CPT Intraspinal catheter Postlaminectomy syndrome, not elsewhere classified 02/02/24 BRANT GOMEZ MD Last Documented On 4 2:24PM ; [facility] Pain Management CPT Programmable infusion pain pump Postlaminectomy syndrome, not elsewhere classified 02/02/24 BRANT GOMEZ MD Last Documented On 4 2:24PM ; [facility] Pain Management CPT Placement of programmable pain pump Postlaminectomy syndrome, not elsewhere classified 02/02/24 BRANT GOMEZ MD Last Documented On 4 2:24PM ; [facility] Pain Management CPT - Joints and Bursa Inj Major joint/bursa injection w/ U/S Primary osteoarthritis, right shoulder 02/02/24 BRANT GOMEZ MD Last Documented On 4 2:23PM ; [facility] Assessments Includes: Assessments from this encounter No Assessments Recorded Medical Equipment - Implanted Devices Includes: Current Devices No Medical Equipment Recorded Medications Includes: Medications discussed during this encounter and other current Medications Current Medications (continue as prescribed) HYDROcodone-Acetaminophen 5- 325 MG Oral Tablet 11/29/2023 Provider: BRANT GOMEZ MD Diagnosis: Other acute postprocedural pain Take 1-2 tab PO Q 4 ? 6 hour s maximum 4 per day for acute postoperative pain. Last Documented On 11/29/2023 3:21PM By Brant Gomez MD ; [facility] Cyclobenzaprine HCl 10 MG Or al Tablet 10/15/2023 Provider: VIVIAN CARTER APRN- KJA, JOY LOADER-BC Diagnosis: One tablet three times a day as needed Last Documented On 9:43AM By VIVIAN JHAVERI-BC ; [facility] glipiZIDE ER 2.5 MG Oral Tab let Extended Release 24 Hour 09/11/2023 Provider: CY Hong Diagnosis: Last Documented On 10/09/2023 10:39AM By Luis JO ; [facility] Losartan Potassium-HCTZ 100- 12.5 MG Oral Tablet 07/05/2023 Provider: CY Hong Diagnosis: Last Documented On 07/07/2023 4:43PM By WILLIAN JO ; [facility] DULoxetine HCl 60 MG Oral Ca psule Delayed Release Particles 07/04/2023 Provider: CATRACHITO HARDIN PA-C Diagnosis: Last Documented On 07/07/2023 4:43PM By WILLIAN JO ; [facility] Ezetimibe 10 MG Oral Tablet 07/04/2023 Provider: CY DAVIS MD Diagnosis: Last Documented On 07/07/2023 4:43PM By WILLIAN JO ; [facility] Omeprazole 40 MG Oral Capsul e Delayed Release 06/26/2023 Provider: CY Hong Diagnosis: Last Documented On 07/07/2023 4:43PM By WILLIAN JO ; [facility] Levothyroxine Sodium 75 MCG Oral Tablet 06/26/2023 Amara murillo: CATRACHITO HARDIN PA-C Diagnosis: Last Documented On 07/07/2023 4:43PM By WILLIAN JO ; [facility] Atorvastatin Calcium 40 MG Oral Tablet 06/26/2023 Pr ovider: CATRACHITODexter HARDIN PA-C Diagnosis: Last Documented On 07/07/2023 4:43PM By WILLIAN JO ; [facility] amLODIPine Besylate 10 MG Oral Tablet 06/26/2023 Pro vider: CATRACHITODexter HARDIN PA-C Diagnosis: Last Documented On 07/07/2023 4:43PM By WILLIAN JEAN-BAPTISTE Dexter ; [facility] Montelukast Sodium 10 MG Oral Tablet 06/20/2023 Prov ider: CY DAVIS MD Diagnosis: Last Documented On 07/07/2023 4:43PM By WILLIAN JO ; [facility] ALPRAZolam 1 MG Oral Tablet 06/05/2023 Provider: CY DAVIS MD Diagnosis: Last Documented On 07/07/2023 4:43PM By WILLIAN JEAN-BAPTISTE Dexter ; [facility] Albuterol Sulfate HFA 108 (90 Base) MCG/ACT Inhalation Aerosol Solution 06/26/2020 Provider: VIDA [place] Diagnosis: Unspecified acut e lower respiratory infection Inhale 1-2 puffs Q4-6 H PRN cough, sob, wheezing. Last Documented On 0 2:55PM By Vida FAN ; [facility] Past Medications on file [id number] 1% Leona c Solution 06/21/2022 - 07/21/2022 Provider: MARTHA HUFF Diagnosis: Unspecified otit is externa, bilateral 3 drops in affested ears 3 t imes daily for 7 days or until clear Last Documented On 2 2:36PM By MARTHA GIPSON JOY LOADER-GARDENIA ; [facility] Medications Administered Includes: Administered Medications from this encounter No Administered Medications Recorded Results Includes: Results discussed during this encounter No Results Recorded For Specified Dates History of Present Illness Includes: History of Present Illness from this encounter No History of Present Illness Recorded Social History Description Last Updated No recent change in sleep 10/09/2023 Last Documented On 4 9:20AM ; [facility] Alcohol 10/09/2023 Last Documented On 4 9:20AM ; [facility] Amount of alcohol per day: 1-2 beers krissy barrera pa 10/09/2023 Last Documented On 4 9:20AM ; [facility] Not using drugs 10/09/2023 Last Documented On 4 9:20AM ; [facility] A recent decrease in exercise activity 1 09/07/2022 Last Documented On 4 9:20AM ; [facility] Tobacco non-user 06/21/2022 Last Documented On 4 9:20AM ; [facility] No travel 06/26/2020 Last Documented On 4 9:20AM ; [facility] Smoking Status Unknown Procedures and Surgical History Surgical History Last Updated No Pacemaker 10/09/2023 Last Documented On 4 9:20AM ; [facility] Surgical / procedural history Surgery Last Documented On 4 9:20AM ; [facility] Medical History Includes: Medical History addressed during this encounter Description Last Updated Denies a fear of falling. 11/20/2023 Last Documented On 4 9:20AM ; [facility] Has had no fall in the last 12 months. 0 11/20/2023 Last Documented On 4 9:20AM ; [facility] Blood pressure was high 10/09/2023 Last Documented On 4 9:20AM ; [facility] Hypertension 10/09/2023 Last Documented On 4 9:20AM ; [facility] No exposure to a contagious disease 09/20 Last Documented On 4 9:20AM ; [facility] No previous psychiatric treatment 2023 Last Documented On 4 9:20AM ; [facility] Not taking OTC medications 10/09/2023 Last Documented On 4 9:20AM ; [facility] Taking medication for high blood pressur e 10/09/2023 Last Documented On 4 9:20AM ; [facility] Back brace 10/09/2023 Last Documented On 4 9:20AM ; [facility] CT/MRI Backneck 10/09/2023 Last Documented On 4 9:20AM ; [facility] Currently wearing eyeglasses 10/09/2023 Last Documented On 4 9:20AM ; [facility] Deep muscle stimulation 10/09/2023 Last Documented On 4 9:20AM ; [facility] Injection/Nerve blocks 10/09/2023 Last Documented On 4 9:20AM ; [facility] Moderate to severe pain 10/09/2023 Last Documented On 4 9:20AM ; [facility] Myelogram Neck 10/09/2023 Last Documented On 4 9:20AM ; [facility] NCV/EMG Back 10/09/2023 Last Documented On 4 9:20AM ; [facility] No Spinal cord stimulator 10/09/2023 Last Documented On 4 9:20AM ; [facility] Pain Clinic 10/09/2023 Last Documented On 4 9:20AM ; [facility] Pain Pump 10/09/2023 Last Documented On 4 9:20AM ; [facility] Physical therapy 10/09/2023 Last Documented On 4 9:20AM ; [facility] Please list all illnesses/co nditions you have been diagnosed with: See paperwork 10/09/2023 Last Documented On 4 9:20AM ; [facility] Please list all surgeries: T onsilsappendix bowel resection cervical fusion, artificial disc spinal fibrillation pain pumpknee surgery prostate surgery cancerskin cancerdiseconomy lower spine 10/09/2023 Last Documented On 4 9:20AM ; [facility] Traction 10/09/2023 Last Documented On 4 9:20AM ; [facility] Treatment with TENS unit 10/09/2023 Last Documented On 4 9:20AM ; [facility] Ultrasound Back 10/09/2023 Last Documented On 4 9:20AM ; [facility] Uses a cane for support 10/09/2023 Last Documented On 4 9:20AM ; [facility] X-rays Backneck 10/09/2023 Last Documented On 4 9:20AM ; [facility] Taking OTC pain medication /fever. Using Tylenol 07/07/2023 Last Documented On 4 9:20AM ; [facility] Family History Includes: Family History addressed during this encounter Description Last Updated Family history of ischemic heart disease 10/09/2023 Last Documented On 4 9:20AM ; [facility] Maternal history of family history of is chemic heart disease 10/09/2023 Last Documented On 4 9:20AM ; [facility] Review of Systems Includes: Review of Systems from this encounter No Review of Systems Recorded Mental Status Includes: Mental Status from this encounter No Mental Status Recorded Functional Status Includes: Functional Status from this encounter No Functional Status Recorded Physical Exam Includes: Physical Exam from this encounter No Physical Exam Recorded Allergies Includes: Active Allergies Substance Type Reaction Onset Date Resolved Date Statu s cloNIDine HCl Allergy 12/06/2023 Activ e Last Documented On 01/03/2024 3:45PM ; [facility] Note: elevates blood pressure Encounters Encounter Provider Location Date Check-In Time Check-Out Time Diagnosis POST PROCEDURE PHONE CALL BRANT GOMEZ MD 12/03/2023 9:19AM 11:59PM Insurance Includes: Active Insurance Policies Plan Name Member ID Group # Subscriber Relationship Effect ana Dates 1 - MEDICARE PART A CLAIMS/NGS [id number] MARIELA Pearson 2 - [facility] [id number] MARIELA Pearson Clinical Notes Includes: Clinical Notes from this encounter * Progress note Date Encounter Last Documented by 12/03/2023 POST PROCEDURE PHONE CALL Last d ocumented on 12/03/2023; 9:27 AM, Steff Jansen RN; [facility] Top of Document Post-Procedural Patient Screening Questionnaire Date of Procedure: 11/29/23 Procedure: Explant of intrathecal pain pump 1. How have you felt since your last procedure? Doing okay Improved Same Worse 2. Pain level prior to procedure? 5-6/10 3. Pain level currently? 2-3/10 not doing much of anything right now, but if pt was to get up pain score would go up 4. How long after procedure did symptoms begin? Denies Same pain but worse New Symptoms ? If new, describe: Improving Staying the same Getting worse 5. Any post procedure issues with injection? Denies Heat Swelling Soreness Redness Streaking Injection site pain Bleeding Discharge/Drainage 6. Are you experiencing new numbness in the groin or saddle area? Yes No 7.New loss of bowel or bladder control? Yes No 8. Are you having any of the following symptoms? Denies Fever Chills Night Sweats Rigors/Shaking Chills Headaches Neck Stiffness Sensitivity to sound New muscle pain/Stiffness Weakness Nausea Vomiting Diarrhea Dizziness Rash Flushing Mood Irritability Blood Pressure changes Blood sugar changes Completed by Priyanka Jansen RN on 12/03/23 Current Medication - Albuterol Sulfate HFA 108 [...] Amount of alcohol per day: 1-2 beers [place]. Tobacco use: Tobacco non-user. Alcohol: Alcohol. Drug Use: Not using drugs. Habits: No recent change in sleep. A recent decrease in exercise activity. Travel: No travel. Allergies - No Known Allergies Family History Ischemic heart disease Maternal: Ischemic heart disease Health Reminders - Assess Need for CT Lung Screen satisfied 12/03/2023. - Assess Tobacco Use satisfied 12/03/2023.
--- OUTSIDE RECORDS SUMMARY | 2024-10-27 09:58 | XMS_ITS ---
Author Organization [facility] Address [address] [place] [address] Phone Care Team Providers Care Patient Service Specialist Name Role Phone ROBIN MATTHEW MD Primary Care Provider [phone] BRANT MURILLO MD Unavailable [phone] Plan of Treatment Findings Encounter Date Ordered disposition Caretake r and/ or patient was informed of the diagnosis of otitis media, The cause and management was also reviewed. 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 Importance of followup was stressed. Also discussed appropiate use of antipyretics. Also, the patient is to return if there is persistnece of fever or severe pain for more than 48 hours, or other new significant symptoms WALK IN PATIENT - ESTABLISHED PT with OFELIA GLOVER [facility]- 07/07/2023 Last Documented On 3 4:49PM ; [facility] Ordered follow-up visit in 3 -5 days with an office visit if symptoms persist or worsen WALK IN PATIENT - ESTABLISHED PT with OFELIA GLOVER [facility]- 07/07/2023 Last Documented On 3 4:49PM ; [facility] Ordered patient to call if mukul hernandez develops WALK IN PATIENT - ESTABLISHED PT with OFELIA GLOVER [facility]- 07/07/2023 Last Documented On 3 4:49PM ; [facility] Ordered return to the clinic if condition worsens or new symptoms arise WALK IN PATIENT - ESTABLISHED PT with OFELIA GLOVER [facility]- 07/07/2023 Last Documented On 3 4:49PM ; [facility] Ordered patient will call fo r appointment as needed COVID SICK VISIT- ESTABLISHED PATIENT with MARTHA GIPSON [employer] 06/21/2022 Last Documented On 2 10:58AM ; [facility] Ordered return to the clinic if condition worsens or new symptoms arise COVID SICK VISIT- ESTABLISHED PATIENT with MARTHA GIPSON [employer] 06/21/2022 Last Documented On 2 10:58AM ; [facility] The options include close observation SI CK VISIT with VIDA Renteria SHANNAN [employer] 06/26/2020 Last Documented On 0 2:50PM ; [facility] Watch for signs/symptoms of infection, return to the clinic if seen SICK VISIT with VIDA A SHANNAN [employer] 06/26/2020 Last Documented On 0 2:50PM ; [facility] Pt to use prescription as or dered. Purpose of and use of medication discussed. WALK-IN CLINIC SICK VISIT with MARIO DOLL [employer] 02/15/2020 Last Documented On 0 5:43PM ; [facility] Pending Tests Order Diagnosis Results Due Ordering Provider Pain Management CPT Implant spinal canal catheter w/o laminectomy Postlaminectomy syndrome, not elsewhere classified 02/02/24 BRANT MURILLO MD Last Documented On 4 2:24PM ; [facility] Pain Management CPT Intraspinal catheter Postlaminectomy syndrome, not elsewhere classified 02/02/24 BRANT MURILLO MD Last Documented On 4 2:24PM ; [facility] Pain Management CPT Programmable infusion pain pump Postlaminectomy syndrome, not elsewhere classified 02/02/24 BRANT MURILLO MD Last Documented On 4 2:24PM ; [facility] Pain Management CPT Placement of programmable pain pump Postlaminectomy syndrome, not elsewhere classified 02/02/24 BRANT MURILLO MD Last Documented On 4 2:24PM ; [facility] Pain Management CPT - Joints and Bursa Inj Major joint/bursa injection w/ U/S Primary osteoarthritis, right shoulder 02/02/24 BRANT MURILLO MD Last Documented On 4 2:23PM ; [facility] Instructions to patient Go to the emergency room if condition worsens Last Documented On 3 4:46PM ; [facility] Watch for signs/symptoms of infection Last Documented On 3 4:46PM ; [facility] Watch for signs/symptoms of infection, return to the clinic if seen Last Documented On 3 4:46PM ; [facility] Watch for signs/symptoms of infection, return to the clinic if seen Last Documented On 0 2:21PM ; [facility] Education and Decision Aids were provided during visit for: Patient education about home safety plans for prevention of falls : Patient completed a Fall risk assesment and was provided fall risk education materials Last Documented On 4 3:44PM ; [facility] Patient education about home safety plans for prevention of falls : Patient completed a Fall risk assesment and was provided fall risk education materials Last Documented On 4 3:00PM ; [facility] Patient education about home safety plans for prevention of falls : Patient completed a Fall risk assesment and was provided fall risk education materials Last Documented On 4 12:27PM ; [facility] Patient education about home safety plans for prevention of falls : Patient completed a Fall risk assesment and was provided fall risk education materials Last Documented On 4 10:38AM ; [facility] Patient education about anti biotics: need to finish even if feeling better Last Documented On 3 4:46PM ; [facility] Assessments Includes: Assessments for all patient encounters Findings Encounter Date [T85.690D - Other mechanical complication of other nervous system device, implant or graft, initial encounter] mechanical complication of nervous system device, implant, and graft PAIN MANAGEMENT FOLLOW UP with BRANT MURILLO MD 01/03/2024 Last Documented On 4 6:07PM ; [facility] Arthralgia of bilateral shou lder region PAIN MANAGEMENT FOLLOW UP with BRANT MURILLO MD 01/03/2024 Last Documented On 4 6:07PM ; [facility] Chronic pain PAIN MANAGEMENT FOLLOW UP with Heather MURILLO MD 01/03/2024 Last Documented On 4 6:07PM ; [facility] DORSALGIA PAIN MANAGEMENT FOLLOW UP with Heather MURILLO MD 01/03/2024 Last Documented On 4 6:07PM ; [facility] Localized primary osteoarthr itis of left shoulder PAIN MANAGEMENT FOLLOW UP with BRANT MURILLO MD 01/03/2024 Last Documented On 4 6:07PM ; [facility] Localized primary osteoarthr itis of right shoulder glenohumeral joint PAIN MANAGEMENT FOLLOW UP with BRANT MURILLO MD 01/03/2024 Last Documented On 4 6:07PM ; [facility] Lumbosacral spondylosis PAIN MANAGEMENT FOLLOW U P with BRANT MURILLO MD 01/03/2024 Last Documented On 4 6:07PM ; [facility] Pain in thoracic spine PAIN MANAGEMENT FOLLOW UP with BRANT MURILLO MD 01/03/2024 Last Documented On 4 6:07PM ; [facility] Postlaminectomy syndrome PAIN MANAGEMENT FOLLOW UP with BRANT MURILLO MD 01/03/2024 Last Documented On 4 6:07PM ; [facility] [T85.695A - Other mechanical complication of other nervous system device, implant or graft, initial encounter] mechanical complication of nervous system device, implant, and graft PAIN MANAGEMENT FOLLOW UP with BRANT MURILLO MD 12/06/2023 Last Documented On 4 3:21PM ; [facility] Chronic pain PAIN MANAGEMENT FOLLOW UP with Heather MURILLO MD 12/06/2023 Last Documented On 4 3:21PM ; [facility] DORSALGIA PAIN MANAGEMENT FOLLOW UP with Heather MURILLO MD 12/06/2023 Last Documented On 4 3:21PM ; [facility] Lumbosacral spondylosis PAIN MANAGEMENT FOLLOW U P with BRANT MURILLO MD 12/06/2023 Last Documented On 4 3:21PM ; [facility] Pain in thoracic spine PAIN MANAGEMENT FOLLOW UP with BRANT MURILLO MD 12/06/2023 Last Documented On 4 3:21PM ; [facility] Postlaminectomy syndrome PAIN MANAGEMENT FOLLOW UP with BRANT MURILLO MD 12/06/2023 Last Documented On 4 3:21PM ; [facility] [T85.695A - Other mechanical complication of other nervous system device, implant or graft, initial encounter] mechanical complication of nervous system device, implant, and graft PAIN MANAGEMENT FOLLOW UP with BRANT MURILLO MD 11/20/2023 Last Documented On 4 5:28PM ; [facility] Chronic pain PAIN MANAGEMENT FOLLOW UP with Heather MURILLO MD 11/20/2023 Last Documented On 4 5:28PM ; [facility] DORSALGIA PAIN MANAGEMENT FOLLOW UP with Heather MURILLO MD 11/20/2023 Last Documented On 4 5:28PM ; [facility] Lumbosacral spondylosis PAIN MANAGEMENT FOLLOW U P with BRANT MURILLO MD 11/20/2023 Last Documented On 4 5:28PM ; [facility] Pain in thoracic spine PAIN MANAGEMENT FOLLOW UP with BRANT MURILLO MD 11/20/2023 Last Documented On 4 5:28PM ; [facility] Postlaminectomy syndrome PAIN MANAGEMENT FOLLOW UP with BRANT MURILLO MD 11/20/2023 Last Documented On 4 5:28PM ; [facility] [T85.695A - Other mechanical complication of other nervous system device, implant or graft, initial encounter] mechanical complication of nervous system device, implant, and graft PAIN MANAGEMENT NEW CONSULT with BRANT MURILLO MD 10/09/2023 Last Documented On 4 12:33PM ; [facility] Chronic pain PAIN MANAGEMENT NEW CONSULT with BRANT MURILLO MD 10/09/2023 Last Documented On 4 12:33PM ; [facility] DORSALGIA PAIN MANAGEMENT NEW CONSULT with BRANT MURILLO MD 10/09/2023 Last Documented On 4 12:33PM ; [facility] Lumbosacral spondylosis PAIN MANAGEMENT NEW CONS ULT with BRANT MURILLO MD 10/09/2023 Last Documented On 4 12:33PM ; [facility] Pain in thoracic spine PAIN MANAGEMENT NEW CONSU LT with BRANT MURILLO MD 10/09/2023 Last Documented On 4 12:33PM ; [facility] Postlaminectomy syndrome PAIN MANAGEMENT NEW CONSULT with BRANT MURILLO MD 10/09/2023 Last Documented On 4 12:33PM ; [facility] Otitis media of the left ear WALK IN PAT IENT - ESTABLISHED PT with OFELIA GLOVER [employer] 07/07/2023 Last Documented On 3 4:49PM ; [facility] Otitis media of the right ear WALK IN PA TIENT - ESTABLISHED PT with OFELIA GLOVER [employer] 07/07/2023 Last Documented On 3 4:49PM ; [facility] Otitis externa of both ears COVID SICK V ISIT- ESTABLISHED PATIENT with MARTHA GIPSON [employer] 06/21/2022 Last Documented On 2 10:58AM ; [facility] Exposure to a viral disease SICK VISIT with VONDA CAMPBELL [employer] 06/26/2020 Last Documented On 0 2:50PM ; [facility] Lower respiratory tract infection SICK VISIT wit davy VIDA CAMPBELL [employer] 06/26/2020 Last Documented On 0 2:50PM ; [facility] Acute sinusitis WALK-IN CLINIC SICK VISIT with Isaac Posada DOLL [employer] 02/15/2020 Last Documented On 0 5:43PM ; [facility] Otitis media of the right ear WALK-IN IN SICK VISIT with MARIO Posada [employer]LL [employer] 02/15/2020 Last Documented On 0 5:43PM ; [facility] Instructions Includes: Instructions for all patient encounters Instructions to patient Go to the emergency room if condition worsens Last Documented On 3 4:46PM ; [facility] Watch for signs/symptoms of infection Last Documented On 3 4:46PM ; [facility] Watch for signs/symptoms of infection, return to the clinic if seen Last Documented On 3 4:46PM ; [facility] Watch for signs/symptoms of infection, return to the clinic if seen Last Documented On 0 2:21PM ; [facility] Education and Decision Aids were provided during visit for: Patient education about home safety plans for prevention of falls : Patient completed a Fall risk assesment and was provided fall risk education materials Last Documented On 4 3:44PM ; [facility] Patient education about home safety plans for prevention of falls : Patient completed a Fall risk assesment and was provided fall risk education materials Last Documented On 4 3:00PM ; [facility] Patient education about home safety plans for prevention of falls : Patient completed a Fall risk assesment and was provided fall risk education materials Last Documented On 4 12:27PM ; [facility] Patient education about home safety plans for prevention of falls : Patient completed a Fall risk assesment and was provided fall risk education materials Last Documented On 4 10:38AM ; [facility] Patient education about anti biotics: need to finish even if feeling better Last Documented On 3 4:46PM ; [facility] Medical Equipment - Implanted Devices Includes: Current and historical Devices No Medical Equipment Recorded Medications Includes: Current and historical Medications Current Medications (continue as prescribed) HYDROcodone-Acetaminophen 5- 325 MG Oral Tablet 11/29/2023 Provider: BRANT MURILLO MD Diagnosis: Other acute postprocedural pain Take 1-2 tab PO Q 4 ? 6 hour s maximum 4 per day for acute postoperative pain. Last Documented On 11/29/2023 3:21PM By Brant Murillo MD ; [facility] Cyclobenzaprine HCl 10 MG Or al Tablet 10/15/2023 Provider: VIVIAN HENRY, SHAKILA-BC Diagnosis: One tablet three times a day as needed Last Documented On 4 9:43AM By VIVIAN JHAVERI-BC ; [facility] glipiZIDE ER 2.5 MG Oral Tab let Extended Release 24 Hour 09/11/2023 Provider: CY Hong Diagnosis: Last Documented On 10/09/2023 10:39AM By Luis JO ; [facility] Losartan Potassium-HCTZ 100- 12.5 MG Oral Tablet 07/05/2023 Provider: CY Hong Diagnosis: Last Documented On 07/07/2023 4:43PM By WILLIAN JO ; [facility] DULoxetine HCl 60 MG Oral Ca psule Delayed Release Particles 07/04/2023 Provider: CATRACHITO HARDIN PA-C Diagnosis: Last Documented On 07/07/2023 4:43PM By WILLIAN JEAN-BAPTISTE Dexter ; [facility] Ezetimibe 10 MG Oral Tablet 07/04/2023 Provider: CY MATTHEW MD Diagnosis: Last Documented On 07/07/2023 4:43PM By WILLAIN JEAN-BAPTISTE Dexter ; [facility] Omeprazole 40 MG Oral Capsul e Delayed Release 06/26/2023 Provider: CY Hong Diagnosis: Last Documented On 07/07/2023 4:43PM By WILLIAN JEAN-BAPTISTE [facility] ; [facility] Levothyroxine Sodium 75 MCG Oral Tablet 06/26/2023 P rovider: CATRACHITO HARDIN PA-C Diagnosis: Last Documented On 07/07/2023 4:43PM [facility] ; [facility] Atorvastatin Calcium 40 MG Oral Tablet 06/26/2023 Pr ovider: CATRACHITO HARDIN PA-C Diagnosis: Last Documented On 07/07/2023 4:43PM By WILLIAN JEAN-BAPTISTE [facility] ; [facility] amLODIPine Besylate 10 MG Oral Tablet 06/26/2023 Pro vider: CATRACHITO HARDIN PA-C Diagnosis: Last Documented On 07/07/2023 4:43PM By [facility] Montelukast Sodium 10 MG Oral Tablet 06/20/2023 Prov ider: CY MATTHEW MD Diagnosis: Last Documented On 07/07/2023 4:43PM By WILLIAN JEAN-BAPTISTE [facility] ; [facility] ALPRAZolam 1 MG Oral Tablet 06/05/2023 Provider: CY MATTHEW MD Diagnosis: Last Documented On 07/07/2023 4:43PM By WILLIAN JEAN-BAPTISTE Dexter ; [facility] Albuterol Sulfate HFA 108 (90 Base) MCG/ACT Inhalation Aerosol Solution 06/26/2020 Provider: VIDA [place] Diagnosis: Unspecified acut e lower respiratory infection Inhale 1-2 puffs Q4-6 H PRN cough, sob, wheezing. Last Documented On 2:55PM By Vida FAN ; [facility] Past Medications on file Ofloxacin 0.3% Otic Solution 07/07/2023 - 10/15/2023 Provider: OFELIA GLOVER [facility] Diagnosis: Otitis media, unspecified, right ear 4 drops in each ear BID x 10 days Last Documented On 4 9:33AM By VIVIAN CARTER [facility] ; [facility] Cefdinir 300 MG Oral Capsule 07/07/2023 - 10/15/2023 Provider: OFELIA GLOVER [facility] Diagnosis: Otitis media, unspecified, right ear 1 CAPSULE TWO TIMES A DAY Last Documented On 4 9:33AM By VIVIAN EMMA [facility] ; [facility] Cyclobenzaprine HCl 10 MG Or al Tablet 07/04/2023 - 10/14/2023 Provider: LILIA NEUMANN MD Diagnosis: Last Documented On 4 9:34AM By VIVIAN CARTER [facility] ; [facility] HYDROcodone-Acetaminophen 10-325 MG Oral Tablet 06/21/2023 - 10/09/2023 Provider: Diagnosis: Last Documented On 10/09/2023 10:38AM By Luis Mccarthy [facility] ; [facility] Wjfyvxmc-Pltfibnuo-EB 1% Leona c Solution 06/21/2022 - 07/21/2022 Provider: MARTHA GIPSON [facility] Diagnosis: Unspecified otit is externa, bilateral 3 drops in affested ears 3 t imes daily for 7 days or until clear Last Documented On 2 2:36PM By MARTHA GIPSON [facility] ; [facility] Azithromycin 500 MG Oral Tablet 06/26/2020 - 07/07/2023 Provider: VIDA CAMPBELL [employer] Diagnosis: Unspecified acut e lower respiratory infection One tablet daily Last Documented On 07/07/2023 4:30PM By WILLIAN JEAN-BAPTISTE Dexter ; [facility] Amoxicillin-Pot Clavulanate 875-125 MG Oral Tablet 02/15/2020 - 07/07/2023 Provider: MARIO DOLL [employer] Diagnosis: Otitis media, unspecified, right ear One tablet twice a day Last Documented On 07/07/2023 4:30PM By WILLIAN JO ; [facility] Medications Administered Includes: Administered Medications in patient's chart Medications Administered Diagnosis Date Pro vider Sensorcaine 0.5% IJ SOLN 01/03/2024 TYLER MURILLO MD administered by Dr. Murillo in left shoulde r joint Last Documented On 4 5:47PM By Kaur Saini RN ; [facility] Kenalog 40 MG/ML IJ SUSP 01/03/2024 TYLER MURILLO MD administered by Dr. Murillo in left shoulde r joint Last Documented On 4 5:46PM By Kaur Saini RN ; [facility] Sodium Chloride 0.9% IV SOLN 01/03/2024 BRANT MURILLO MD administered by Dr. Murillo for local Last Documented On 4 5:45PM By Kaur Saini RN ; [facility] Xylocaine 1% IJ SOLN 01/03/2024 BRANT MURILLO MD administered by Dr. Murillo for local Last Documented On 4 5:44PM By Kaur Saini RN ; [facility] Vital Signs Includes: Vital Signs from 10/28/2023 through 10/27/2024 Vital Name 01/03/2024 03:47P 12/06/2023 03:04P 11/19 09:26A Blood Pressure Sitting R 126/88 142/98 128/88 BP Cuff Size Regular Regular Regular Pulse Rate-Sitting (bpm) 89 58 86 Pulse Rhythm Regular Regular Respiration Rate (breaths/min) 20 16 20 Temp-Oral (F) 98 Height (in) 75 75 75 Weight (lb) 268 263 Body Mass Index 33.5 32.9 Body Surface Area 2.5 2.5 Pain Level 5 0 5 Oxygen Saturation (%) 97 95 98 Temp-Tympanic (F) 98.9 97.6 Last Documented: On 01/03/2024 3:49PM ; [facility] On 12/06/2023 3:04PM ; [facility] On 11/20/2023 9:28AM ; [facility] Results Includes: Results from 10/28/2023 through 10/27/2024 POINT OF CARE GLUCOSE [facility] Laboratory Ordered by BRANT MURILLO MD on 11/29/2023 [address] [place], [address] Collected: 11/29/2023 Report ed: 11/29/2023 14:57 tel:[phone] Last Documented On 4 2:36PM ; [facility] Reviewed on 12/18/2023; All test results are final unless otherwise noted. POCGLU 111 mg/dl (70 - 110) H (High) Last Documented On 4 10:15PM ; [facility] Note: Responsible Observer: (PB) Reported Physicians [facility] Catherine lópez Ordered by BRANT MURILLO MD on 11/29/19 24 [address] [facility], [place], [address] Collected: 11/29/2023 Report ed: 12/02/2023 08:09 tel:[phone] Last Documented On 4 2:36PM ; [facility] Reviewed on 12/18/2023; All test results are final unless otherwise noted. Reported Physicians See Note None Last Documented On 12/17/2023 10:15PM ; [facility] Note: Reported Physicians:Ordering: BRANT MURILLOAttending: BRANT MURILLOConsulting: ROBIN MATTHEW POINT OF CARE GLUCOSE [facility] Laboratory Ordered by BRANT MURILLO MD on 11/29/2023 [address] [place], [address] Collected: 11/29/2023 Report ed: 11/29/2023 10:04 tel:[phone] Last Documented On 4 2:36PM ; [facility] Reviewed on 12/18/2023; All test results are final unless otherwise noted. POCGLU 127 mg/dl (70 - 110) H (High) Last Documented On 4 8:31PM ; [facility] Note: Responsible Observer: (BH) Reported Physicians [facility] Catherine lópez Ordered by BRANT MURILLO MD on 11/29/19 24 [address] [facility], [place], [address] Collected: 11/29/2023 Report ed: 11/29/2023 17:14 tel:[phone] Last Documented On 4 2:36PM ; [facility] Reviewed on 12/18/2023; All test results are final unless otherwise noted. Reported Physicians See Note None Last Documented On 12/17/2023 8:31PM ; [facility] Note: Reported Physicians:Ordering: BRANT MURILLOAttending: BRANT MURILLOConsulting: ROBIN MATTHEW History of Present Illness History of Present Illness not supported for this document type No History of Present Illness Recorded Social History Description Last Updated No recent change in sleep 10/09/2023 Last Documented On 4 12:33PM ; [facility] Alcohol 10/09/2023 Last Documented On 4 12:33PM ; [facility] Amount of alcohol per day: 1-2 beers derian barrera pa 10/09/2023 Last Documented On 4 12:33PM ; [facility] Not using drugs 10/09/2023 Last Documented On 4 12:33PM ; [facility] A recent decrease in exercise activity 1 09/07/2022 Last Documented On 3 4:49PM ; [facility] Tobacco non-user 06/21/2022 Last Documented On 2 10:58AM ; [facility] No travel 06/26/2020 Last Documented On 0 2:50PM ; [facility] Smoking Status Unknown Procedures and Surgical History Includes: Procedures from 10/28/2023 through 10/27/2024 Procedures Code Diagnosis Performing Provider Service Location Service Date KENALOG INJECTION 10MG [id number] Primary osteoarthritis, left shoulder, Pain in unspecified shoulder BRANT MURILLO MD [facility] 01/03/2024 Last Documented On 4 2:15PM ; [facility] ARTHROCENTESIS/ASPRIATION MAJOR JOINT W/ US (LEFT) Primary osteoarthritis, left shoulder, Pain in unspecified shoulder BRANT MURILLO MD [facility] 01/03/2024 Last Documented On 4 2:15PM ; [facility]AC[facility] FEE (Signi/Sep Eval & Man) [id number] Postlaminectomy syndrome, not elsewhere classified, Other spondylosis, lumbosacral region, Dorsalgia, unspecified, Other chronic pain BRANT MURILLO MD [facility] 01/03/2024 Last Documented On 4 2:15PM ; [facility] ARTHROCENTESIS/ASPIRATION MAJOR JOINT W/ US (LEFT) Primary osteoarthritis, left shoulder, Pain in unspecified shoulder BRANT MURILLO MD [facility] 01/03/2024 Last Documented On 4 2:15PM ; [facility] FEE (Signi/Sep Eval & Man) G0463 Postlaminectomy syndrome, not elsewhere classified BRANT MURILLO MD [facility] 12/06/2023 Last Documented On 4 2:40PM ; [facility] FEE (Signi/Sep Eval & Man) G0463 [facility] compl of nervous sys device, implant or graft, sequela, Postlaminectomy syndrome, not elsewhere classified, Other chronic pain, Dorsalgia, unspecified BRANT MURILLO MD [facility] 11/20/2023 Last Documented On 4 1:59PM ; [facility] Surgical History Last Updated No Pacemaker 10/09/2023 Last Documented On 4 12:33PM ; [facility] Surgical / procedural history Surgery Last Documented On 4 12:33PM ; [facility] Medical History Includes: Medical History in patient's chart Description Last Updated Denies a fear of falling. 11/20/2023 Last Documented On 4 5:28PM ; [facility] Has had no fall in the last 12 months. 0 11/20/2023 Last Documented On 4 5:28PM ; [facility] Blood pressure was high 10/09/2023 Last Documented On 4 12:33PM ; [facility] Hypertension 10/09/2023 Last Documented On 4 12:33PM ; [facility] No exposure to a contagious disease 09/20 Last Documented On 4 12:33PM ; [facility] No previous psychiatric treatment 2023 Last Documented On 4 12:33PM ; [facility] Not taking OTC medications 10/09/2023 Last Documented On 4 12:33PM ; [facility] Taking medication for high blood pressur e 10/09/2023 Last Documented On 4 12:33PM ; [facility] Back brace 10/09/2023 Last Documented On 4 12:33PM ; [facility] CT/MRI Backneck 10/09/2023 Last Documented On 4 12:33PM ; [facility] Currently wearing eyeglasses 10/09/2023 Last Documented On 4 12:33PM ; [facility] Deep muscle stimulation 10/09/2023 Last Documented On 4 12:33PM ; [facility] Injection/Nerve blocks 10/09/2023 Last Documented On 4 12:33PM ; [facility] Moderate to severe pain 10/09/2023 Last Documented On 4 12:33PM ; [facility] Myelogram Neck 10/09/2023 Last Documented On 4 12:33PM ; [facility] NCV/EMG Back 10/09/2023 Last Documented On 4 12:33PM ; [facility] No Spinal cord stimulator 10/09/2023 Last Documented On 4 12:33PM ; [facility] Pain Clinic 10/09/2023 Last Documented On 4 12:33PM ; [facility] Pain Pump 10/09/2023 Last Documented On 4 12:33PM ; [facility] Physical therapy 10/09/2023 Last Documented On 4 12:33PM ; [facility] Please list all illnesses/co nditions you have been diagnosed with: See paperwork 10/09/2023 Last Documented On 4 12:33PM ; [facility] Please list all surgeries: T onsilsappendix bowel resection cervical fusion, artificial disc spinal fibrillation pain pumpknee surgery prostate surgery cancerskin cancerdiseconomy lower spine 10/09/2023 Last Documented On 4 12:33PM ; [facility] Traction 10/09/2023 Last Documented On 4 12:33PM ; [facility] Treatment with TENS unit 10/09/2023 Last Documented On 4 12:33PM ; [facility] Ultrasound Back 10/09/2023 Last Documented On 4 12:33PM ; [facility] Uses a cane for support 10/09/2023 Last Documented On 4 12:33PM ; [facility] X-rays Backneck 10/09/2023 Last Documented On 4 12:33PM ; [facility] Taking OTC pain medication /fever. Using Tylenol 07/07/2023 Last Documented On 3 4:49PM ; [facility] Family History Includes: Family History in patient's chart Description Last Updated Family history of ischemic heart disease 10/09/2023 Last Documented On 4 12:33PM ; [facility] Maternal history of family history of is chemic heart disease 10/09/2023 Last Documented On 4 12:33PM ; [facility] Review of Systems Review of Systems not supported for this document type No Review of Systems Recorded Mental Status No Mental Status Recorded Functional Status No Functional Status Recorded Physical Exam Physical Exam not supported for this document type No Physical Exam Recorded Allergies Includes: Active, inactive, and resolved Allergies Substance Type Reaction Onset Date Resolved Date Statu s cloNIDine HCl Allergy 12/06/2023 Activ e Last Documented On 01/03/2024 3:45PM ; [facility] Note: elevates blood pressure Encounters Includes: Encounters from 10/28/2023 through 10/27/2024 Encounter Provider Location Date Check-In Time Check-Out Time Diagnosis PAIN MANAGEMENT FOLLOW UP BRANT MURILLO MD [facility] 024 3:42PM 4:45PM Postlaminectomy Syndrome,Mech Complication of Nervous System Device, Implant, Graft,Chronic Pain,Spondylosis Lumbosacral Region,Dorsopathy Dorsalgia Pain in Thoracic Spine,Dorsalgia,Os teoarthritis Localized Primary Shoulder Left,Osteoarthriti s Localized Primary Shoulder Right Glenohumeral Joint,Arthralgia - Shoulder Region Bilateral POST PROCEDURE PHONE CALL BRANT MURILLO MD 024 12/06/2023 11:41AM 12/06/2023 11:59PM * PHONE CALL BRANT MURILLO MD 024 12/06/2023 1:15PM 12/06/2023 11:59PM PAIN MANAGEMENT FOLLOW UP BRANT MURILLO MD [facility] 024 2:57PM 3:46PM Postlaminectomy Syndrome,Mech Complication of Nervous System Device, Implant, Graft,Chronic Pain,Spondylosis Lumbosacral Region,Dorsopathy Dorsalgia Pain in Thoracic Spine,Dorsalgia POST PROCEDURE PHONE CALL BRANT MURILLO MD 024 11/20/2023 9:19AM 11/20/2023 11:59PM [Patient Encounter] BRANT MURILLO MD 024 11/20/2023 3:05PM 11/20/2023 11:59PM PAIN MANAGEMENT FOLLOW UP BRANT MURILLO MD [facility] 024 9:06AM 10:10AM Postlaminectomy Syndrome,Mech Complication of Nervous System Device, Implant, Graft,Chronic Pain,Spondylosis Lumbosacral Region,Dorsopathy Dorsalgia Pain in Thoracic Spine,Dorsalgia Insurance Includes: Active Insurance Policies Plan Name Member ID Group # Subscriber Relationship Effect ana Dates 1 - MEDICARE PART A CLAIMS/NGS [id number] MARIELA Pearson 2 - [facility] [id number] MARIELA Pearson Clinical Notes Includes: Signed Clinical Notes starting from 08/10/2022 * Progress note Date Encounter Last Documented by 01/03/2024 PAIN MANAGEMENT FOLLOW UP Last d ocumented on 01/03/2024; 6:07 PM, BRANT MURILLO MD; [facility] Chief Complaint The Chief Complaint is: Patient [...] order permanent intrathecal catheter and pump placement (Motor2 SynchroMed 3) and medications today. We will [...] our ability and to his satisfaction today. [place] prescription monitoring database was reviewed and found [...] morning of surgery. He will need a pile driver the day of the surgery. He [...] to follow-up. Apparently the patient moved to [place] for the warmer weather but found it to be to warm and low back. He began seen different pain specialist at [facility] to include Varghese Hammer and Vladislav. Over the course of the next 7 use. Throughout this time however his pump had never been evaluated or any attempt made to alter the infusion. Apparently there was nobody at [facility] willing to manage his pump. They discussed sending him [place] river to [facility] () but patient refused due to concerns [...] he elected to be seen at the [place] location. In summary, the patient is interested [...] our ability and to his satisfaction today. [place] prescription monitoring database was reviewed and found [...] in all extremities. No focal neurologic deficit. Uluc-pg-[id number] normal bilaterally. Babinski downgoing. Psych: No apparent [...] 48 hours after. 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 Follow-up in one to [...] 50% of this time spent in direct [id number] counseling and coordination of care. Results of [...] but may be subject to typographical or project planner errors. Verify all diagnoses, medications, dosages, and [...] and was provided fall risk education materials. * Progress note Date Encounter Last Documented by 12/27/2023 POST PROCEDURE PHONE CALL Last d ocumented on 12/27/2023; 3:11 PM, BRANT MURILLO MD; [facility] Top of Document Post-Procedural Patient Screening Questionnaire Date of Procedure: 12/26/23 Procedure: pain pump trial 1. How have you felt since your last procedure? Had total relief of back pain, had severe itching yesterday afternoon (improved today). Difficulty starting urine stream yesterday, resolved today. Improved Same Worse 2. Pain level prior to procedure? 3/10 3. Pain level currently? 0/10 4. How long after procedure did symptoms begin? Same pain but worse New Symptoms ? If new, describe: Improving Staying the same Getting worse 5. Any post procedure issues with injection? all over itching; also had difficulty starting urine stream yesterday, resolved today Heat Swelling Soreness Redness Streaking Injection site pain Bleeding Discharge/Drainage 6. Are you experiencing new numbness in the groin or saddle area? Yes No 7.New loss of bowel or bladder control? Yes No 8. Are you having any of the following symptoms? Fever Chills Night Sweats Rigors/Shaking Chills Headaches Neck Stiffness Sensitivity to sound New muscle pain/Stiffness Weakness Nausea Vomiting Diarrhea Dizziness Rash Flushing Mood Irritability Blood Pressure changes Blood sugar changes call completed edil Saini RN Current Medication - Albuterol Sulfate HFA 108 [...] Ischemic heart disease Maternal: Ischemic heart disease Plan StartCited - Other *DANY will need to switch planned pump med to hydromorphone 0.125 mg/ml (125mcg/ml) bupiv 5mg/ml clonidine 200 mcg/ml 20ml EndCited Health Reminders - Assess Need for CT Lung Screen satisfied 12/27/2023. - Assess Tobacco Use satisfied 12/27/2023. * Progress note Date Encounter Last Documented by 12/26/2023 * PHONE CALL Last documented on 12/27/2023; 3:11 PM, BRANT MURILLO MD; [facility] Chief Complaint Phone Call - Chief Concern: reason for call: PT CALLS IN STATING THAT HE HAS NO PAIN. BUT HE IS ITCHING FROM HEAD TO TOE NO HIVES OR ANYTHING. HE HAS PUT CORIZONE ON HIS BACK AND IT HELPED SOME. PT CAN NOT TAKE DECONGESTION. PLEASE ADVISE pt phone # for return call:[phone] Date/Initials:12-26-23 [facility]. History of Present Illness MARIELA DUNCAN is a 73 year old male. Pharmacy name:~location:[facility]. Current Medication - Albuterol Sulfate HFA 108 [...] Assess Need for CT Lung Screen satisfied 12/26/2023. - Assess Tobacco Use satisfied 12/26/2023. * Progress note Date Encounter Last Documented by 12/06/2023 PAIN MANAGEMENT FOLLOW UP Last d ocumented on 12/06/2023; 3:21 PM, BRANT MURILLO MD; [facility] Chief Complaint The Chief Complaint is: Pt. here for one week follow up from IT pain pump explant. History of Present Illness PHQ-9 Score: 0 [...] arm - No vertigo Discussion: patient returns one week after having his [...] morning of surgery. He will need a pile driver the day of the surgery. He [...] to follow-up. Apparently the patient moved to [place] for the warmer weather but found it to be to warm and low back. He began seen different pain specialist at [facility] to include Varghese Hammer and Vladislav. Over the course of the next 7 use. Throughout this time however his pump had never been evaluated or any attempt made to alter the infusion. Apparently there was nobody at [facility] willing to manage his pump. They discussed sending him [place] to [facility] () but patient refused due to concerns [...] he elected to be seen at the [place] location. In summary, the patient is interested [...] our ability and to his satisfaction today. [place] prescription monitoring database was reviewed and found [...] Amount of alcohol per day: 1-2 beers cloby pa. Tobacco use: Tobacco non-user. Alcohol: Alcohol. [...] BACK UP. Physical Findings - Vitals taken 12/06/2023 03:04 pm BP-Sitting R 142/98 mmHg BP Cuff Size Regular Pulse Rate-Sitting 58 bpm Respiration Rate 16 per min Temp-Tympanic 98.9 F Height 75 in Pain Level 0 Oxygen Saturation 95 % Musculoskeletal System: General/bilateral: Musculoskeletal Scales: Value [...] in all extremities. No focal neurologic deficit. Cdsy-kk-macb normal bilaterally. Babinski downgoing. Psych: No apparent distress. Mood normal. Affect normal. No pain behaviors. Tests Educational Testing: Questionnaires PHQ-9: Value SOAPP-R: total score 2 Assessment - [M54.9 - Dorsalgia, unspecified] DORSALGIA - [...] system device, implant, and graft Therapy - Surgery. - Clinical summary provided to patient. - Walker. Plan Patient will follow-up one to 2 weeks after completing opioid epidural bolus trial for preoperative planning in regards to permanent placement of SynchroMed 3 20 mLpain pump and initiation of opioid infusion. Practice Management Use of tobacco assessment performed and patient screened for future fall risk documentation of any fall with injury in past year Review of medications documented; Standardized depression screening: negative for symptoms and for adult impression and score 0. A total of 21 minutes were spent on this patient's evaluation, as above, with greater than 50% of this time spent in direct swbd-fr-lmah counseling and coordination of care. Results of [...] but may be subject to typographical or project planner errors. Verify all diagnoses, medications, dosages, and patient instructions with patient and/or the originator of this document. Health Reminders - Assess Need for CT Lung Screen satisfied 12/06/2023. - Assess Screening for Fall Risk satisfied 12/06/2023. - Assess Tobacco Use satisfied 12/06/2023. - Depression Screening satisfied 12/06/2023. - Follow up plan for Depression Screening satisfied 12/06/2023. User Defined 25 Patient education about home safety plans for prevention of falls: Patient completed a Fall risk assesment and was provided fall risk education materials. * Progress note Date Encounter Last Documented by 12/03/2023 POST PROCEDURE PHONE CALL Last d ocumented on 12/03/2023; 9:27 AM, Steff Jansen RN; [facility] Top of Document Post-Procedural Patient Screening Questionnaire Date of Procedure: 11/29/23 Procedure: Explant of intrathecal pain pump 1. How have you felt since your last procedure? Doing okay Improved Same Worse 2. Pain level prior to procedure? 5-12/29 3. Pain level currently? 2-10 not doing much of anything right now, [...] 12/03/2023. - Assess Tobacco Use satisfied 12/03/2023. * Progress note Date Encounter Last Documented by 11/29/2023 [Patient Encounter] Lei diggs on 11/29/2023; 3:07 PM, BRANT MURILLO MD; [facility] Current Medication - Albuterol Sulfate HFA 108 [...] capsule daily 30 days, 0 refills - Levothyroxine Sodium 75 [...] Amount of alcohol per day: 1-2 beers jinnyey pa. Tobacco use: Tobacco non-user. Alcohol: Alcohol. Drug Use: Not using drugs. Habits: No recent change in sleep. A recent decrease in exercise activity. Travel: No travel. Allergies - No Known Allergies Family History Ischemic heart disease Maternal: Ischemic heart disease Plan StartCited - Other acute postprocedural pain HYDROcodone-Acetaminophen 5-325 MG tablet Take 1-2 tab PO Q 4 ? 6 hours maximum 4 per day for acute postoperative pain., 15 days, 0 refills EndCited Health Reminders - Assess Need for CT Lung Screen satisfied 11/29/2023. - Assess Tobacco Use satisfied 11/29/2023. * Progress note Date Encounter Last Documented by 11/20/2023 PAIN MANAGEMENT FOLLOW UP Last d ocumented on 11/21/2023; 5:28 PM, BRANT MURILLO MD; [facility] Top of Document This document represents the pre-surgical History & Physical for this patient Chief Complaint The Chief Complaint is: Patient is here today for 2 week follow up after catheter dye study and to review Xrays and MRI's. Patient would like to proceed with moving forward towards a new pain pump. Would also like to discuss weaning off Cymbalta as he feels this is no longer helping. History of Present Illness PHQ-9 Score: 0 [...] arm - No vertigo Discussion: patient returns in follow-up with nonfunctioning intrathecal [...] morning of surgery. He will need a pile driver the day of the surgery. He [...] to follow-up. Apparently the patient moved to [place] for the warmer weather but found it to be to warm and low back. He began seen different pain specialist at [facility] to include Varghese Hammer and Vladislav. Over the course of the next 7 use. Throughout this time however his pump had never been evaluated or any attempt made to alter the infusion. Apparently there was nobody at [facility] willing to manage his pump. They discussed sending him [place] the river to [facility] () but patient refused due to concerns [...] he elected to be seen at the [place] location. In summary, the patient is interested [...] our ability and to his satisfaction today. [place] prescription monitoring database was reviewed and found [...] capsule daily 30 days, 0 refills - Levothyroxine Sodium 75 [...] BACK UP. Physical Findings - Vitals taken 11/20/2023 09:26 am BP-Sitting R 128/88 mmHg BP Cuff Size Regular Pulse Rate-Sitting 86 bpm Pulse Rhythm Regular Respiration Rate 20 per min Temp-Tympanic 97.6 F Height 75 in Weight 263 lbs Body Mass Index 32.9 kg/m2 Body Surface Area 2.5 m2 Pain Level 5 Pain Level Note 5 when resting 7-9 with activity Oxygen Saturation 98 % Musculoskeletal System: General/bilateral: Musculoskeletal Scales: Value [...] in all extremities. No focal neurologic deficit. Aofo-xf-nuyc normal bilaterally. Babinski downgoing. Psych: No apparent distress. Mood normal. Affect normal. No pain behaviors. Tests Educational Testing: Questionnaires PHQ-9: Value SOAPP-R: total score 2 Assessment - [M54.9 - Dorsalgia, unspecified] DORSALGIA - [...] system device, implant, and graft Therapy - Surgery. - Clinical summary provided to patient. - Walker. Discussed The preoperative H & P is done today in the office. No major problems are found. We will proceed with surgical intervention accordingly. Plan StartCited - [facility] compl of nervous sys device, implant or graft, sequela Pain Management CPT: Removal of Spinal canal Catheter, Removal Spinal infusion device Instructions: Permanent ex-plantation of malfunctioning intrathecal catheter and implanted intrathecal pain pump with pocket revision and fluoroscopic evaluation for device localization. Diabetic.. No blood thinners. Hold ASA/NSAIDs times 7 days before in 2 days after. 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 Follow-up in 2 weeks for wound assessment . EndCited StartCited - Postlaminectomy syndrome, not elsewhere classified Pain Management CPT: Epidural injection catheter lumbar/sacral Instructions: Temporary placement of epidural catheter for neuraxial opioid bolus trial under fluoroscopic guidance with contrast control. Diabetic. No blood thinners. Hold ASA/NSAIDs times 7 days. PIV/no ABX. Extended recovery with continuous pulse ox and frequent vital signs. Neurologic checks at admission and prior to discharge. Narcan at bedside. Catheter to be pulled by RN prior to discharge. Schedule 2 to 3 weeks after pump explantation. Follow-up in one to 2 weeks. EndCited Practice Management Use of tobacco assessment performed and patient screened for future fall risk documentation of any fall with injury in past year Review of medications documented; Standardized depression screening: negative for symptoms and for adult impression and score 0. A total of 47 minutes were spent on this patient's evaluation, as above, with greater than 50% of this time spent in direct onna-fo-jecd counseling and coordination of care. Results of [...] but may be subject to typographical or project planner errors. Verify all diagnoses, medications, dosages, and patient instructions with patient and/or the originator of this document. Health Reminders - Assess BMI satisfied 11/20/2023. - Assess Need for CT Lung Screen satisfied 11/20/2023. - Assess Screening for Fall Risk satisfied 11/20/2023. - Assess Tobacco Use satisfied 11/20/2023. - Depression Screening satisfied 11/20/2023. - Follow up plan for Depression Screening satisfied 11/20/2023. User Defined 25 Patient education about home safety plans for prevention of falls: Patient completed a Fall risk assesment and was provided fall risk education materials.
--- OUTSIDE RECORDS SUMMARY | 2024-10-27 09:58 | XMS_ITS | Clinical Summary ---
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 Role Phone ROBIN DAVIS MD Primary Care Provider [phone] BRANT GOMEZ MD [phone] Reason for Visit and Chief Complaint * PHONE CALL Plan of Treatment Pending Tests Order Diagnosis Results Due Ordering Provider Pain Management CPT Implant spinal canal catheter w/o laminectomy Postlaminectomy syndrome, not elsewhere classified 02/02/24 BRANT GOMEZ MD Last Documented On 4 2:24PM ; [facility] Pain Management CPT Intraspinal catheter Postlaminectomy syndrome, not elsewhere classified 02/02/24 BRANT GOMEZ MD Last Documented On 4 2:24PM ; [facility] Pain Management CPT Programmable infusion pain pump Postlaminectomy syndrome, not elsewhere classified 02/02/24 BRANT GOMEZ MD Last Documented On 4 2:24PM ; [facility] Pain Management CPT Placement of programmable pain pump Postlaminectomy syndrome, not elsewhere classified 02/02/24 BRANT GOMEZ MD Last Documented On 4 2:24PM ; [facility] Pain Management CPT - Joints and Bursa Inj Major joint/bursa injection w/ U/S Primary osteoarthritis, right shoulder 02/02/24 BRANT GOMEZ MD Last Documented On 4 2:23PM ; [facility] Assessments Includes: Assessments from this encounter No [...] 11/29/2023 3:21PM By Brant Gomez MD ; [facility] Cyclobenzaprine HCl 10 MG Or al Tablet 10/15/2023 Provider: VIVIAN CARTER APRN- FPA, [employer]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 Diagnosis: One tablet three times a day as needed Last Documented On 9:43AM By VIVIAN JHAVERI-BC ; [facility] glipiZIDE ER 2.5 MG Oral Tab let Extended Release 24 Hour 09/11/2023 Provider: CY Hong Diagnosis: Last Documented On 10/09/2023 10:39AM By Luis JO ; [facility] Losartan Potassium-HCTZ 100- 12.5 MG Oral Tablet 07/05/2023 Provider: CY Hong Diagnosis: Last Documented On 07/07/2023 4:43PM By WILLIAN JO ; [facility] DULoxetine HCl 60 MG Oral Ca psule Delayed Release Particles 07/04/2023 Provider: CATRACHITO HARDIN PA-C Diagnosis: Last Documented On 07/07/2023 4:43PM By WILLIAN JO ; [facility] Ezetimibe 10 MG Oral Tablet 07/04/2023 Provider: CY DAVIS MD Diagnosis: Last Documented On 07/07/2023 4:43PM By WILLIAN JO ; [facility] Omeprazole 40 MG Oral Capsul e Delayed Release 06/26/2023 Provider: CY Hong Diagnosis: Last Documented On 07/07/2023 4:43PM By WILLIAN JO ; [facility] Levothyroxine Sodium 75 MCG Oral Tablet 06/26/2023 P rovider: CATRACHITO HARDIN PA-C Diagnosis: Last Documented On 07/07/2023 4:43PM By WILLIAN JO ; [facility] Atorvastatin Calcium 40 MG Oral Tablet 06/26/2023 Pr ovider: CATRACHITO HARDIN PA-C Diagnosis: Last Documented On 07/07/2023 4:43PM By WILLIAN JO ; [facility] amLODIPine Besylate 10 MG Oral Tablet 06/26/2023 Pro vider: CATRACHITO HARDIN PA-C Diagnosis: Last Documented On 07/07/2023 4:43PM By WILLIAN JO ; [facility] Montelukast Sodium 10 MG Oral Tablet 06/20/2023 Prov ider: CY DAVIS MD Diagnosis: Last Documented On 07/07/2023 4:43PM By WILLIAN JO ; [facility] ALPRAZolam 1 MG Oral Tablet 06/05/2023 Provider: CY DAVIS MD Diagnosis: Last Documented On 07/07/2023 4:43PM By WILLIAN JO ; [facility] Albuterol Sulfate HFA 108 (90 Base) MCG/ACT Inhalation Aerosol Solution 06/26/2020 Provider: VIDA [place] Diagnosis: Unspecified acut e lower respiratory infection Inhale 1-2 puffs Q4-6 H PRN cough, sob, wheezing. Last Documented On 0 2:55PM By Vida FAN ; [facility] Past Medications on file [place]-Ccqtgdwwr-DX 1% Leona c Solution 06/21/2022 - 07/21/2022 Provider: MARTHA HUFF Diagnosis: Unspecified otit is externa, bilateral 3 drops in affested ears 3 t imes daily for 7 days or until clear Last Documented On 2 2:36PM By MARTHA JHAVERI-GARDENIA ; [facility] Medications Administered Includes: Administered Medications from this encounter No Administered Medications Recorded Results Includes: Results discussed during this encounter No Results Recorded For Specified Dates History of Present Illness Includes: History of Present Illness from this encounter NEREIDA DUNCAN is a 73 year old male. Pharmacy name:~location:[facility] Social History Description Last Updated No recent change in sleep 10/09/2023 Last Documented On 4 1:15PM ; [facility] Alcohol 10/09/2023 Last Documented On 4 1:15PM ; [facility] Amount of alcohol per day: 1-2 beers krissy barrera pa 10/09/2023 Last Documented On 4 1:15PM ; [facility] Not using drugs 10/09/2023 Last Documented On 4 1:15PM ; [facility] A recent decrease in exercise activity 1 09/07/2022 Last Documented On 4 1:15PM ; [facility] Tobacco non-user 06/21/2022 Last Documented On 4 1:15PM ; [facility] No travel 06/26/2020 Last Documented On 4 1:15PM ; [facility] Smoking Status Unknown Procedures and Surgical History Surgical History Last Updated No Pacemaker 10/09/2023 Last Documented On 4 1:15PM ; [facility] Surgical / procedural history Surgery Last Documented On 4 1:15PM ; [facility] Medical History Includes: Medical History addressed during this encounter Description Last Updated Denies a fear of falling. 11/20/2023 Last Documented On 4 1:15PM ; [facility] Has had no fall in the last 12 months. 0 11/20/2023 Last Documented On 4 1:15PM ; [facility] Blood pressure was high 10/09/2023 Last Documented On 4 1:15PM ; [facility] Hypertension 10/09/2023 Last Documented On 4 1:15PM ; [facility] No exposure to a contagious disease 09/20 Last Documented On 4 1:15PM ; [facility] No previous psychiatric treatment 2023 Last Documented On 4 1:15PM ; [facility] Not taking OTC medications 10/09/2023 Last Documented On 4 1:15PM ; [facility] Taking medication for high blood pressur e 10/09/2023 Last Documented On 4 1:15PM ; [facility] Back brace 10/09/2023 Last Documented On 4 1:15PM ; [facility] CT/MRI Backneck 10/09/2023 Last Documented On 4 1:15PM ; [facility] Currently wearing eyeglasses 10/09/2023 Last Documented On 4 1:15PM ; [facility] Deep muscle stimulation 10/09/2023 Last Documented On 4 1:15PM ; [facility] Injection/Nerve blocks 10/09/2023 Last Documented On 4 1:15PM ; [facility] Moderate to severe pain 10/09/2023 Last Documented On 4 1:15PM ; [facility] Myelogram Neck 10/09/2023 Last Documented On 4 1:15PM ; [facility] NCV/EMG Back 10/09/2023 Last Documented On 4 1:15PM ; [facility] No Spinal cord stimulator 10/09/2023 Last Documented On 4 1:15PM ; [facility] Pain Clinic 10/09/2023 Last Documented On 4 1:15PM ; [facility] Pain Pump 10/09/2023 Last Documented On 4 1:15PM ; [facility] Physical therapy 10/09/2023 Last Documented On 4 1:15PM ; [facility] Please list all illnesses/co nditions you have been diagnosed with: See paperwork 10/09/2023 Last Documented On 4 1:15PM ; [facility] Please list all surgeries: T onsilsappendix bowel resection cervical fusion, artificial disc spinal fibrillation pain pumpknee surgery prostate surgery cancerskin cancerdiseconomy lower spine 10/09/2023 Last Documented On 4 1:15PM ; [facility] Traction 10/09/2023 Last Documented On 4 1:15PM ; [facility] Treatment with TENS unit 10/09/2023 Last Documented On 4 1:15PM ; [facility] Ultrasound Back 10/09/2023 Last Documented On 4 1:15PM ; [facility] Uses a cane for support 10/09/2023 Last Documented On 4 1:15PM ; [facility] X-rays Backneck 10/09/2023 Last Documented On 4 1:15PM ; [facility] Taking OTC pain medication /fever. Usin g Tylenol 07/07/2023 Last Documented On 4 1:15PM ; [facility] Family History Includes: Family History addressed during this encounter Description Last Updated Family history of ischemic heart disease 10/09/2023 Last Documented On 4 1:15PM ; [facility] Maternal history of family history of is chemic heart disease 10/09/2023 Last Documented On 4 1:15PM ; [facility] Review of Systems Includes: Review of [...] e Last Documented On 01/03/2024 3:45PM ; [facility] Note: elevates blood pressure Encounters Encounter Provider Location Date Check-In Time Check-Out Time Diagnosis * PHONE CALL BRANT GOMEZ MD 12/26/2023 1:15PM 11:59PM Insurance Includes: Active Insurance Policies Plan Name Member ID Group # Subscriber Relationship Effect ana Dates 1 - MEDICARE PART A CLAIMS/NGS [id number] MARIELA Pearson 2 - [facility] [id number] MARIELA Pearson Clinical Notes Includes: Clinical Notes from this encounter * Progress note Date Encounter Last Documented by 12/26/2023 * PHONE CALL Last documented on 12/27/2023; 3:11 PM, BRANT GOMEZ MD; [facility] Chief Complaint Phone Call - Chief Concern: reason for call: PT CALLS IN STATING THAT HE HAS NO PAIN. BUT HE IS ITCHING FROM HEAD TO TOE NO HIVES OR ANYTHING. HE HAS PUT CORIZONE ON HIS BACK AND IT HELPED SOME. PT CAN NOT TAKE DECONGESTION. PLEASE ADVISE pt phone # for return call:[phone] Date/Initials:12-26-23 [facility]. History of Present Illness MARIELA DUNCAN is a 73 year old male. Pharmacy name:~location:[facility]. Current Medication - Albuterol Sulfate HFA 108 [...]
--- OUTSIDE RECORDS SUMMARY | 2024-10-27 09:58 | XMS_ITS | Continuity of Care Document ---
Author Organization [facility] Address [address] [place] [address] Phone Care Team Providers Care Mortician Supplies Sales Representative Name Role Phone Kiko Medellin MD Unavailable Unavailable Advance Directives Directive Yes / No Effective Date File Name No Information Encounters Encounter Description Practice Location Reason(s) For Visit Diagnoses Date Provider Providers Copied on Encounter [employer], [address] [place] [address], [id number], tel:[phone] [facility] CERVICAL SPINAL STENOSIS Vignesh Hoover. [address], [place], [id number], [place]. tel:[phone] [employer], [address] [facility], [place], [place], [id number], tel:[phone] [facility] OTH ADV EFF MED/BIO SUBCERVICAL DISC DISPLACMNT No Information Family History Family Member Type Diagnosis Age At Onset No Information Payers Payer name Insurance type Covered green party ID Authoriza tion(s) No Information Social History Type Description Quantity Date Captured Comments Sex Male Smoking Status No Information Chief Complaint And Reason For Visit No Information Reason For Referral Reason For Referral No Information History Of Present Illness Encounter Date Complaint History Of Prese nt Illness No Information Functional Status Date Functional Assessmen t No Information Instructions Date Instruction Additional Infor mation No Information Assessments Type Assessment Date No Information Patient Care Teams Name Effective Dates (start - stop) Status Members No Information
--- OUTSIDE RECORDS SUMMARY | 2024-10-27 09:58 | XMS_ITS | Clinical Summary ---
Author Organization [facility] Address [address] [place] [address] Phone Care Team Providers Care Diesel Crane Operator Name Role Phone ROBIN MATTHEW MD Primary Care Provider [phone] LIDIA SCHWARZ, BRANT Franco [phone] Reason for Visit and Chief Complaint The Chief Complaint is: Pt. here for one week follow up from IT pain pump explant Plan of Treatment Patient will follow-up one to 2 weeks after completing opioid epidural bolus trial for preoperative planning in regards to permanent placement of SynchroMed 3 20 mLpain pump and initiation of opioid infusion. - Last Documented On 12/06/2023 3:21PM ; [facility] Pending Tests Order Diagnosis Results Due Ordering Provider Pain Management CPT Implant spinal canal catheter w/o laminectomy Postlaminectomy syndrome, not elsewhere classified 02/02/24 BRANT MURILLO MD Last Documented On 4 2:24PM ; [facility] Pain Management CPT Intraspinal catheter Postlaminectomy syndrome, not elsewhere classified 02/02/24 BRANT MURILLO MD Last Documented On 4 2:24PM ; [facility] Pain Management CPT Programmable infusion pain pump Postlaminectomy syndrome, not elsewhere classified 02/02/24 BRANT MURILLO MD Last Documented On 4 2:24PM ; [facility] Pain Management CPT Placement of programmable pain pump Postlaminectomy syndrome, not elsewhere classified 02/02/24 BRANT MURILLO MD Last Documented On 4 2:24PM ; [facility] Pain Management CPT - Joints and Bursa Inj Major joint/bursa injection w/ U/S Primary osteoarthritis, right shoulder 02/02/24 BRANT MURILLO MD Last Documented On 4 2:23PM ; [facility] Education and Decision Aids were provided during visit for: Patient education about home safety plans for prevention of falls : Patient completed a Fall risk assesment and was provided fall risk education materials Last Documented On 4 3:00PM ; [facility] Assessments Includes: Assessments from this encounter Findings - [M54.9 - Dorsalgia, unspecified] DORSALGIA - Last Documented On 12/06/2023 3:21PM ; [facility] - [M96.1 - Postlaminectomy syndrome, not elsewhere classified] Postlaminectomy syndrome - Last Documented On 12/06/2023 3:21PM ; [facility] - [M47.897 - Other spondylosis, lumbosacral region] Lumbosacral spondylosis - Last Documented On 12/06/2023 3:21PM ; [facility] - [M54.6 - Pain in thoracic spine] Pain in thoracic spine - Last Documented On 12/06/2023 3:21PM ; [facility] - [G89.29 - Other chronic pain] Chronic pain - Last Documented On 12/06/2023 3:21PM ; [facility] - [T85.695S - Other mechanical complication of other nervous system device, implant or graft, sequela] Mechanical complication of nervous system device, implant, and graft - Last Documented On 12/06/2023 3:21PM ; [facility] Instructions Includes: Instructions from this encounter Education and Decision Aids were provided during visit for: Patient education about home safety plans for prevention of falls : Patient completed a Fall risk assesment and was provided fall risk education materials Last Documented On 4 3:00PM ; [facility] Medical Equipment - Implanted Devices Includes: Current [...] Last Documented On 11/29/2023 3:21PM By Brant Muirllo MD ; [facility] Cyclobenzaprine HCl 10 MG Or al Tablet 10/15/2023 Provider: VIVIAN [facility]RY [facility] Diagnosis: One tablet three times a day as needed Last Documented On 9:43AM By VIVIAN [facility] ; [facility] glipiZIDE ER 2.5 MG Oral Tab let Extended Release 24 Hour 09/11/2023 Provider: CY Hong Diagnosis: Last Documented On 10/09/2023 10:39AM By Luis Mccarthy [facility] ; [facility] Losartan Potassium-HCTZ 100- 12.5 MG Oral Tablet 07/05/2023 Provider: CY Hong Diagnosis: Last Documented On 07/07/2023 4:43PM By WILLIAN JO ; [facility] DULoxetine HCl 60 MG Oral Ca psule Delayed Release Particles 07/04/2023 Provider: CATRACHITO HARDIN PA-C Diagnosis: Last Documented On 07/07/2023 4:43PM By WILLIAN JO ; [facility] Ezetimibe 10 MG Oral Tablet 07/04/2023 Provider: CY MATTHEW MD Diagnosis: Last Documented On 07/07/2023 4:43PM By WILLIAN JO ; [facility] Omeprazole 40 MG Oral Capsul e Delayed Release 06/26/2023 Provider: CY Hong Diagnosis: Last Documented On 07/07/2023 4:43PM By WILLIAN JO ; [facility] Levothyroxine Sodium 75 MCG Oral Tablet 06/26/2023 P rovider: CATRACHITO HARDIN PA-C Diagnosis: Last Documented On 07/07/2023 4:43PM By WILLIAN JO ; [facility] Atorvastatin Calcium 40 MG Oral Tablet 06/26/2023 Pr ovider: CATRACHITO HARDIN PA-C Diagnosis: Last Documented On 07/07/2023 4:43PM By WILLIAN JO ; [facility] amLODIPine Besylate 10 MG Oral Tablet 06/26/2023 Pro vider: CATRACHITO HARDIN PA-C Diagnosis: Last Documented On 07/07/2023 4:43PM By WILLIAN JO ; [facility] Montelukast Sodium 10 MG Oral Tablet 06/20/2023 Prov ider: CY MATTHEW MD Diagnosis: Last Documented On 07/07/2023 4:43PM By WILLIAN JO ; [facility] ALPRAZolam 1 MG Oral Tablet 06/05/2023 Provider: CY MATTHEW MD Diagnosis: Last Documented On 07/07/2023 4:43PM By WILLIAN JO ; [facility] Albuterol Sulfate HFA 108 (90 Base) MCG/ACT Inhalation Aerosol Solution 06/26/2020 Provider: VIDA [place] Diagnosis: Unspecified acut e lower respiratory infection Inhale 1-2 puffs Q4-6 H PRN cough, sob, wheezing. Last Documented On 0 2:55PM By Vida FAN ; [facility] Past Medications on file Jiqfkmnh-Frcrbxiky-XL 1% Leona c Solution 06/21/2022 - 07/21/2022 Provider: MARTHA HUFF Diagnosis: Unspecified otit is externa, bilateral 3 drops in affested ears 3 t imes daily for 7 days or until clear Last Documented On 2 2:36PM By MARTHA HUFF ; [facility] Medications Administered Includes: Administered Medications from this encounter No Administered Medications Recorded Vital Signs Includes: Vital Signs from this encounter Vital Name 12/06/2023 03:04P Blood Pressure Sitting R 142/98 BP Cuff Size Regular Pulse Rate-Sitting (bpm) 58 Respiration Rate (breaths/min) 16 Temp-Tympanic (F) 98.9 Height (in) 75 Pain Level 0 Oxygen Saturation (%) 95 Last Documented: On 12/06/2023 3:04PM ; [facility] Results Includes: Results discussed during this encounter No Results Recorded For Specified Dates History of Present Illness Includes: History of Present Illness from this encounter HPI PHQ-9 Score: 0 Date:39-57-30KSBRA-R Score: 2 Date:11-36-66Pzpbdfoz Score: 62 Date:19-59-38Yhyx Location: LOWER BACK AT THE WAIST AND [...] ALL THAT HAS BEEN DONE TO HIM. MD-ITTRONIC BRAND NEVE BLOCKS, DEEP MUSCLE STIMULATION, PT, [...] morning of surgery. He will need a crew car driver the day of the surgery. He [...] [facility]hese Hammer and Vladislav. Over the course of the next 7 use. Throughout this time however his pump had never been evaluated or any attempt made to alter the infusion. Apparently there was nobody at [facility] willing to manage his pump. They discussed sending him [place] the river to [facility] [place] () but patient refused due to concerns [...] he elected to be seen at the [place] location. In summary, the patient is interested [...] our ability and to his satisfaction today. [place] prescription monitoring database was reviewed and found to be appropriate. Imaging: All relevant imaging available was personally reviewed with the patient today with the following tests and results noted: [None available. Will obtain reports, patient will provide images at follow up.] Social History Description Last Updated No recent change in sleep 10/09/2023 Last Documented On 4 3:00PM ; [facility] Alcohol 10/09/2023 Last Documented On 4 3:00PM ; [facility] Amount of alcohol per day: 1-2 beers krissy maki 10/09/2023 Last Documented On 4 3:00PM ; [facility] Not using drugs 10/09/2023 Last Documented On 4 3:00PM ; [facility] A recent decrease in exercise activity 1 09/07/2022 Last Documented On 4 3:00PM ; [facility] Tobacco non-user 06/21/2022 Last Documented On 4 3:00PM ; [facility] No travel 06/26/2020 Last Documented On 4 3:00PM ; [facility] Smoking Status Unknown Procedures and Surgical History Includes: Procedures from this encounter Procedures Code Diagnosis Performing Provider Service Location Service Date CLINIC FACILITY FEE (Signi/Sep Eval & Man) G0463 Postlaminectomy syndrome, not elsewhere classified BRANT MURILLO MD [facility] 12/06/2023 Last Documented On 4 2:40PM ; [facility] surgery Last Documented On 4 3:00PM ; [facility] walker Last Documented On 4 3:00PM ; [facility] use of tobacco assessment performed 1000F Last Documented On 4 3:00PM ; [facility] patient screened for future fall risk: documentation of any fall with injury in past year 1100F Last Documented On 4 3:00PM ; [facility] standardized depression screening: negative for symptoms 3351F Last Documented On 4 3:00PM ; [facility] review of medications documented 1160F Last Documented On 4 3:00PM ; [facility] screening for adult depression: impressi on and score 0 Last Documented On 4 3:00PM ; [facility] Clinical summary provided to patient Last Documented On 4 3:00PM ; [facility] SOAPP-R: total score 2 Last Documented On 4 3:00PM ; [facility] Surgical History Last Updated No Pacemaker 10/09/2023 Last Documented On 4 3:00PM ; [facility] Surgical / procedural history Surgery Last Documented On 4 3:00PM ; [facility] Medical History Includes: Medical History addressed during this encounter Description Last Updated Denies a fear of falling. 11/20/2023 Last Documented On 4 3:00PM ; [facility] Has had no fall in the last 12 months. 0 11/20/2023 Last Documented On 4 3:00PM ; [facility] Blood pressure was high 10/09/2023 Last Documented On 4 3:00PM ; [facility] Hypertension 10/09/2023 Last Documented On 4 3:00PM ; [facility] No exposure to a contagious disease 09/20 Last Documented On 4 3:00PM ; [facility] No previous psychiatric treatment 2023 Last Documented On 4 3:00PM ; [facility] Not taking OTC medications 10/09/2023 Last Documented On 4 3:00PM ; [facility] Taking medication for high blood pressur e 10/09/2023 Last Documented On 4 3:00PM ; [facility] Back brace 10/09/2023 Last Documented On 4 3:00PM ; [facility] CT/MRI Backneck 10/09/2023 Last Documented On 4 3:00PM ; [facility] Currently wearing eyeglasses 10/09/2023 Last Documented On 4 3:00PM ; [facility] Deep muscle stimulation 10/09/2023 Last Documented On 4 3:00PM ; [facility] Injection/Nerve blocks 10/09/2023 Last Documented On 4 3:00PM ; [facility] Moderate to severe pain 10/09/2023 Last Documented On 4 3:00PM ; [facility] Myelogram Neck 10/09/2023 Last Documented On 4 3:00PM ; [facility] NCV/EMG Back 10/09/2023 Last Documented On 4 3:00PM ; [facility] No Spinal cord stimulator 10/09/2023 Last Documented On 4 3:00PM ; [facility] Pain Clinic 10/09/2023 Last Documented On 4 3:00PM ; [facility] Pain Pump 10/09/2023 Last Documented On 4 3:00PM ; [facility] Physical therapy 10/09/2023 Last Documented On 4 3:00PM ; [facility] Please list all illnesses/co nditions you have been diagnosed with: See paperwork 10/09/2023 Last Documented On 4 3:00PM ; [facility] Please list all surgeries: T onsilsappendix bowel resection cervical fusion, artificial disc spinal fibrillation pain pumpknee surgery prostate surgery cancerskin cancerdiseconomy lower spine 10/09/2023 Last Documented On 4 3:00PM ; [facility] Traction 10/09/2023 Last Documented On 4 3:00PM ; [facility] Treatment with TENS unit 10/09/2023 Last Documented On 4 3:00PM ; [facility] Ultrasound Back 10/09/2023 Last Documented On 4 3:00PM ; [facility] Uses a cane for support 10/09/2023 Last Documented On 4 3:00PM ; [facility] X-rays Backneck 10/09/2023 Last Documented On 4 3:00PM ; [facility] Taking OTC pain medication /fever. Using Tylenol 07/07/2023 Last Documented On 4 3:00PM ; [facility] Family History Includes: Family History addressed during this encounter Description Last Updated Family history of ischemic heart disease 10/09/2023 Last Documented On 4 3:00PM ; [facility] Maternal history of family history of is chemic heart disease 10/09/2023 Last Documented On 4 3:00PM ; [facility] Review of Systems Includes: Review of Systems [...] e Last Documented On 01/03/2024 3:45PM ; [facility] Note: elevates blood pressure Encounters Encounter Provider Location Date Check-In Time Check-Out Time Diagnosis PAIN MANAGEMENT FOLLOW UP BRANT MURILLO MD [facility] 024 2:57PM 3:46PM Postlaminectomy Syndrome,Mech Complication of Nervous System Device, Implant, Graft,Chronic Pain,Spondylosis Lumbosacral Region,Dorsopathy Dorsalgia Pain in Thoracic Spine,Dorsalgia Insurance Includes: Active Insurance Policies Plan Name Member ID Group # Subscriber Relationship Effect ana Dates 1 - MEDICARE PART A CLAIMS/NGS [id number] MARIELA Pearson 2 - [facility] [id number] MARIELA Pearson Clinical Notes Includes: Clinical Notes from this encounter * Progress note Date Encounter Last Documented by 12/06/2023 PAIN MANAGEMENT FOLLOW UP Last d ocumented on 12/06/2023; 3:21 PM, BRANT MURILLO MD; [facility] Chief Complaint The Chief Complaint is: Pt. [...] ALL THAT HAS BEEN DONE TO HIM. MD-ITTRONIC BRAND NEVE BLOCKS, DEEP MUSCLE STIMULATION, PT, [...] his intrathecal pain pump permanently explant in (MEVLIN with dysfunctional catheter). He is recovering well [...] morning of surgery. He will need a crew car driver the day of the surgery. He [...] He began seen different pain specialist at [facility] to include Drs. Dumont, Varghese and Vladislav. Over the course of the next 7 use. Throughout this time however his pump had never been evaluated or any attempt made to alter the infusion. Apparently there was nobody at [facility] willing to manage his pump. They discussed sending him [place] the river to [facility] [place] () but patient refused due to concerns [...] he elected to be seen at the [place] location. In summary, the patient is interested [...] our ability and to his satisfaction today. [place] prescription monitoring database was reviewed and found [...] of alcohol per day: 1-2 beers colby maki. Tobacco use: Tobacco non-user. Alcohol: Alcohol. Drug [...] in all extremities. No focal neurologic deficit. Nezd-vr-egts normal bilaterally. Babinski downgoing. Psych: No apparent [...] 50% of this time spent in direct kodn-fy-eoxz counseling and coordination of care. Results of [...] but may be subject to typographical or coloring checker errors. Verify all diagnoses, medications, dosages, and [...]
--- OUTSIDE RECORDS SUMMARY | 2024-10-27 09:58 | XMS_ITS | Clinical Summary ---
Author Organization [facility] Address [address] [place] [address] Care Team Providers Care Electrical Subcontractor Name Role Phone Amilcar Orozco MD Primary Care Provider [phone] Allergies Active Allergy Reactions Criticality Noted Date Comments Oxymetazoline Anxiety Low 08/11/2021 Jittery. jumpiness Medications ALPRAZolam 1 MG tablet Take 1 tablet by mouth nightly as needed (back pain). 1 Active amLODIPine 10 MG tablet Take 10 mg by mouth daily. 1 Active atorvastatin 40 MG tablet Take 40 mg by mouth daily. 1 Active DULoxetine 60 MG capsule Take 60 mg by mouth daily. 1 Active ezetimibe 10 MG tablet Take 10 mg by mouth daily. 1 Active furosemide 20 MG tablet Take 20 mg by mouth daily. 1 Active gabapentin 300 MG capsule Take 1 capsule by mouth daily. 1 Active hydroCHLOROthi azide 12.5 MG capsule Take 1 capsule by mouth daily. 1 Active HYDROcodone-ac etaminophen 10-325 MG tablet Take 1 tablet by mouth every 4 (four) hours as needed. 1 Active levothyroxine 75 MCG tablet Take 1 tablet by mouth daily. 1 Active Losartan Potassium-HCTZ 100-12.5 MG Tab Take 1 tablet by mouth daily. 1 Active metFORMIN 500 MG tablet Take 1 tablet by mouth 2 (two) times a day. 1 Active montelukast 10 MG tablet Take 10 mg by mouth nightly at bedtime. 1 Active omeprazole EC 20 MG Tab EC tablet Take 20 mg by mouth daily. 1 Active hyoscyamine 0.125 MG SL tablet Take 1 tablet by mouth daily as needed. Helps prevent loose stool if out. Taken preventatively 1 Active senna-docusate 8.6-50 MG tablet Take 1 tablet by mouth daily. 60 tablet 1 2 Active Active Problems No known active problems Immunizations Name Administration Dates Next Due MODERNA COVID-19 (12+) MRNA, LNP-S, PF, 100 MCG/ 0.5 ML DOSE 09/15/2020,08/18/2020 PFIZER COVID-19 (ORIGINAL FO RMULATION, PURPLE CAP) mRNA, LNP-S, PF, 30 MCG/0.3 ML DOSE 06/17/2021 Family History Medical History Relation Comments Arthritis Father Cancer Mother Heart Mother brain hemorrhage Mother was on warfarin and had a headache, took aspirin Arthritis Sister Other Sister small intestines doesn't pass stool fast enough, frequent gastric infection. 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 Gender Identity Male 08/17/2021 1:08 PM DYE PADDER OPERATOR Sexual Orientation Straight 08/17/2021 1: 08 PM DYE PADDER OPERATOR Last Filed Vital Signs Vital Sign Reading Time Taken Comments Blood Pressure 142/88 08/28/2021 4:45 PM DYE PADDER OPERATOR Pulse 83 08/28/2021 4:45 PM DYE PADDER OPERATOR Temperature 36.4 C (97.6 F) 08/28/2021 4:45 PM DYE PADDER OPERATOR Respiratory Rate 18 08/28/2021 4:45 PM DYE PADDER OPERATOR Oxygen Saturation 96% 08/28/2021 4:45 PM DYE PADDER OPERATOR Inhaled Oxygen Concentration - - Weight 126.1 kg (278 lb) 08/28/2021 9:34 AM DYE PADDER OPERATOR Height 190.5 cm (6' 3 ) 08/28/2021 9:34 AM DYE PADDER OPERATOR Body Mass Index 34.75 08/28/2021 9:34 AM DYE PADDER OPERATOR Plan of Treatment Health Maintenance Due Date Last Done Comments Colorectal Cancer Screening Colonoscopy (10 Years) 1950 Hepatitis C 11/06/1969 DTaP, Tdap and Td Vaccines ( 1 - Tdap) 11/06/1970 Zoster Vaccines (1 of 2) 11/06/2001 Annual Medicare Wellness Visit 11/06/2016 Pneumococcal Vaccine: 65+ Years (1 of 1 - PCV) 11/06/2016 COVID-19 Vaccine (4 - 2023-2 5 season) 2024 06/17/2021, 09/15/2020, 08/18/2020 RSV Immunization or 60+ Years (1 - 1-dose 75+ series) 11/06/2026 Meningococcal B Vaccine Aged Out No l onger eligible based on patient's age to complete this topic Meningococcal Vaccine Aged Out No ana paula coco eligible based on patient's age to complete this topic RSV Immunizations Under 20 Months Aged Out No longer eligible b ased on patient's age to complete this topic Insurance MEDICARE [facility] Care Teams Electrical Subcontractor Relationship Specialty Start Date End Date Amilcar Orozco MD [address] [place] [address] PCP - General FAMILY PRACTICE 08/11/21
--- OUTSIDE RECORDS SUMMARY | 2024-10-27 09:59 | XMS_ITS | Clinical Summary ---
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 Name Role Phone ROBIN DAVIS MD Primary Care Provider [phone] BRATN GOMEZ MD [phone] Reason for Visit and Chief Complaint POST PROCEDURE PHONE CALL Plan of Treatment Pending Tests Order Diagnosis Results Due Ordering Provider Pain Management CPT Implant spinal canal catheter w/o laminectomy Postlaminectomy syndrome, not elsewhere classified 02/02/24 BRANT GOMEZ MD Last Documented On 4 2:24PM ; [facility] Pain Management CPT Intraspinal catheter Postlaminectomy syndrome, not elsewhere classified 02/02/24 BRANT GOMEZ MD Last Documented On 4 2:24PM ; [facility] Pain Management CPT Programmable infusion pain pump Postlaminectomy syndrome, not elsewhere classified 02/02/24 BRANT GOMEZ MD Last Documented On 4 2:24PM ; [facility] Pain Management CPT Placement of programmable pain pump Postlaminectomy syndrome, not elsewhere classified 02/02/24 BRANT GOMEZ MD Last Documented On 4 2:24PM ; [facility] Pain Management CPT - Joints and Bursa Inj Major joint/bursa injection w/ U/S Primary osteoarthritis, right shoulder 02/02/24 BRANT GOMEZ MD Last Documented On 4 2:23PM ; [facility] Assessments Includes: Assessments from this encounter No [...] 11/29/2023 3:21PM By Brant Gomez MD ; [facility] Cyclobenzaprine HCl 10 MG Or al Tablet 10/15/2023 Provider: VIVIAN CARTER APRN- KJA, SENIOR GRADUATE ADVISOR-BC Diagnosis: One tablet three times a day as needed Last Documented On 9:43AM By VIVIAN JHAVERI-BC ; [facility] glipiZIDE ER 2.5 MG Oral Tab let Extended Release 24 Hour 09/11/2023 Provider: CY Hong Diagnosis: Last Documented On 10/09/2023 10:39AM By Luis JO ; [facility] Losartan Potassium-HCTZ 100- 12.5 MG Oral Tablet 07/05/2023 Provider: CY Hong Diagnosis: Last Documented On 07/07/2023 4:43PM By WILLIAN JO ; [facility] DULoxetine HCl 60 MG Oral Ca psule Delayed Release Particles 07/04/2023 Provider: CATRACHITO HARDIN PA-C Diagnosis: Last Documented On 07/07/2023 4:43PM By WILLIAN JO ; [facility] Ezetimibe 10 MG Oral Tablet 07/04/2023 Provider: CY DAVIS MD Diagnosis: Last Documented On 07/07/2023 4:43PM By WILLIAN JO ; [facility] Omeprazole 40 MG Oral Capsul e Delayed Release 06/26/2023 Provider: CY Hong Diagnosis: Last Documented On 07/07/2023 4:43PM By WILLIAN JO ; [facility] Levothyroxine Sodium 75 MCG Oral Tablet 06/26/2023 Amara murillo: CATRACHITO HARDIN PA-C Diagnosis: Last Documented On 07/07/2023 4:43PM By WILLIAN JO ; [facility] Atorvastatin Calcium 40 MG Oral Tablet 06/26/2023 Pr ovider: CATRACHITODexter HARDIN PA-C Diagnosis: Last Documented On 07/07/2023 4:43PM By WILLIAN JO ; [facility] amLODIPine Besylate 10 MG Oral Tablet 06/26/2023 Pro vider: CATRACHITODexter HARDIN PA-C Diagnosis: Last Documented On 07/07/2023 4:43PM By WILLIAN JEAN-BAPTISTE Dexter ; [facility] Montelukast Sodium 10 MG Oral Tablet 06/20/2023 Prov ider: CY DAVIS MD Diagnosis: Last Documented On 07/07/2023 4:43PM By WILLIAN JO ; [facility] ALPRAZolam 1 MG Oral Tablet 06/05/2023 Provider: CY DAVIS MD Diagnosis: Last Documented On 07/07/2023 4:43PM By WILLIAN JO ; [facility] Albuterol Sulfate HFA 108 (90 Base) MCG/ACT Inhalation Aerosol Solution 06/26/2020 Provider: VIDA London Diagnosis: Unspecified acut e lower respiratory infection Inhale 1-2 puffs Q4-6 H PRN cough, sob, wheezing. Last Documented On 0 2:55PM By Vida FAN ; [facility] Past Medications on file Pmhnzqij-Hiquchtrq-MO 1% Leona c Solution 06/21/2022 - 07/21/2022 Provider: MARTHA HUFF Diagnosis: Unspecified otit is externa, bilateral 3 drops in affested ears 3 t imes daily for 7 days or until clear Last Documented On 2 2:36PM By MARTHA GIPSON SENIOR GRADUATE ADVISOR-GARDENIA ; [facility] Medications Administered Includes: Administered Medications from this encounter No Administered Medications Recorded Results Includes: Results discussed during this encounter No Results Recorded For Specified Dates History of Present Illness Includes: History of Present Illness from this encounter No History of Present Illness Recorded Social History Description Last Updated No recent change in sleep 10/09/2023 Last Documented On 4 11:41AM ; [facility] Alcohol 10/09/2023 Last Documented On 4 11:41AM ; [facility] Amount of alcohol per day: 1-2 beers krissy barrera pa 10/09/2023 Last Documented On 4 11:41AM ; [facility] Not using drugs 10/09/2023 Last Documented On 4 11:41AM ; [facility] A recent decrease in exercise activity 1 09/07/2022 Last Documented On 4 11:41AM ; [facility] Tobacco non-user 06/21/2022 Last Documented On 4 11:41AM ; [facility] No travel 06/26/2020 Last Documented On 4 11:41AM ; [facility] Smoking Status Unknown Procedures and Surgical History Surgical History Last Updated No Pacemaker 10/09/2023 Last Documented On 4 11:41AM ; [facility] Surgical / procedural history Surgery Last Documented On 4 11:41AM ; [facility] Medical History Includes: Medical History addressed during this encounter Description Last Updated Denies a fear of falling. 11/20/2023 Last Documented On 4 11:41AM ; [facility] Has had no fall in the last 12 months. 0 11/20/2023 Last Documented On 4 11:41AM ; [facility] Blood pressure was high 10/09/2023 Last Documented On 4 11:41AM ; [facility] Hypertension 10/09/2023 Last Documented On 4 11:41AM ; [facility] No exposure to a contagious disease 09/20 Last Documented On 4 11:41AM ; [facility] No previous psychiatric treatment 2023 Last Documented On 4 11:41AM ; [facility] Not taking OTC medications 10/09/2023 Last Documented On 4 11:41AM ; [facility] Taking medication for high blood pressur e 10/09/2023 Last Documented On 4 11:41AM ; [facility] Back brace 10/09/2023 Last Documented On 4 11:41AM ; [facility] CT/MRI Backneck 10/09/2023 Last Documented On 4 11:41AM ; [facility] Currently wearing eyeglasses 10/09/2023 Last Documented On 4 11:41AM ; [facility] Deep muscle stimulation 10/09/2023 Last Documented On 4 11:41AM ; [facility] Injection/Nerve blocks 10/09/2023 Last Documented On 4 11:41AM ; [facility] Moderate to severe pain 10/09/2023 Last Documented On 4 11:41AM ; [facility] Myelogram Neck 10/09/2023 Last Documented On 4 11:41AM ; [facility] NCV/EMG Back 10/09/2023 Last Documented On 4 11:41AM ; [facility] No Spinal cord stimulator 10/09/2023 Last Documented On 4 11:41AM ; [facility] Pain Clinic 10/09/2023 Last Documented On 4 11:41AM ; [facility] Pain Pump 10/09/2023 Last Documented On 4 11:41AM ; [facility] Physical therapy 10/09/2023 Last Documented On 4 11:41AM ; [facility] Please list all illnesses/co nditions you have been diagnosed with: See paperwork 10/09/2023 Last Documented On 4 11:41AM ; [facility] Please list all surgeries: T onsilsappendix bowel resection cervical fusion, artificial disc spinal fibrillation pain pumpknee surgery prostate surgery cancerskin cancerdiseconomy lower spine 10/09/2023 Last Documented On 4 11:41AM ; [facility] Traction 10/09/2023 Last Documented On 4 11:41AM ; [facility] Treatment with TENS unit 10/09/2023 Last Documented On 4 11:41AM ; [facility] Ultrasound Back 10/09/2023 Last Documented On 4 11:41AM ; [facility] Uses a cane for support 10/09/2023 Last Documented On 4 11:41AM ; [facility] X-rays Backneck 10/09/2023 Last Documented On 4 11:41AM ; [facility] Taking OTC pain medication /fever. Using Tylenol 07/07/2023 Last Documented On 4 11:41AM ; [facility] Family History Includes: Family History addressed during this encounter Description Last Updated Family history of ischemic heart disease 10/09/2023 Last Documented On 4 11:41AM ; [facility] Maternal history of family history of is chemic heart disease 10/09/2023 Last Documented On 4 11:41AM ; [facility] Review of Systems Includes: Review of Systems [...] e Last Documented On 01/03/2024 3:45PM ; [facility] Note: elevates blood pressure Encounters Encounter Provider Location Date Check-In Time Check-Out Time Diagnosis POST PROCEDURE PHONE CALL BRANT GOMEZ MD 12/27/2023 11:41AM 11:59PM Insurance Includes: Active Insurance Policies Plan Name Member ID Group # Subscriber Relationship Effect ana Dates 1 - MEDICARE PART A CLAIMS/NGS [id number] MARIELA Pearson 2 - [facility] [id number] MARIELA Pearson Clinical Notes Includes: Clinical Notes from this encounter * Progress note Date Encounter Last Documented by 12/27/2023 POST PROCEDURE PHONE CALL Last d ocumented on 12/27/2023; 3:11 PM, BRANT GOMEZ MD; [facility] Top of Document Post-Procedural Patient Screening Questionnaire [...] Pressure changes Blood sugar changes call completed my Radha Saini RN Current Medication - Albuterol Sulfate [...]
--- OUTSIDE RECORDS SUMMARY | 2024-10-27 09:59 | XMS_ITS ---
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
--- NOTE | 2024-10-27 10:37 | EST_ITS ---
Patient Info Name: Pierce Espinal Age: 73 years : 1950 Gender: Male Ht: 75 in Wt: 270 lbs BSA: 2.58 m2 HR: 67 bpm BP: 124 / 82 mmHg Exam Date: 10/27/2024 10:51 AM Exam Location: Echo Lab Patient Status: Outpatient Admit Date: 10/27/2024 Staff Ordering Physician: Fiona Matthew MD Attending Provider: Fiona Matthew MD Exercise Technologist: eliezer palmer Exercise Physician: Yuval Shields DO Exam Type: CA stress babar w NM Study Info Indications Z01.818 - Encounter for other preprocedural examination A regadenoson stress test was performed. Summary 1. 1. Negative lexiscan stress test for ischemic ST changes by ECG criteria. 2. 2. Stable hemodynamics throughout the test. 3. 3. Nuclear scan to follow and will be reported separately. Please correlate with it. 4. 4. Patient informed of the above results. Protocol: Lexiscan Stress ECG Details Stage: REST Duration (min): 2 min : 24 sec HR (bpm): 69 SBP (mmHg): --- DBP (mmHg): --- Stage: REST Duration (min): 2 min : 44 sec HR (bpm): 67 SBP (mmHg): 124 DBP (mmHg): 82 Stage: REST Duration (min): 6 min : 23 sec HR (bpm): 68 SBP (mmHg): 124 DBP (mmHg): 82 Stage: STAGE 1 Duration (min): 1 min : 0 sec HR (bpm): 73 SBP (mmHg): 106 DBP (mmHg): 81 Stage: RECOVERY Duration (min): 1 min : 0 sec HR (bpm): 79 SBP (mmHg): 106 DBP (mmHg): 81 Stage: RECOVERY Duration (min): 1 min : 2 sec HR (bpm): 79 SBP (mmHg): 106 DBP (mmHg): 81 Rest HR: 68 bpm Peak HR: 81 bpm Rest Sys BP: 124 mmHg Peak Sys BP: 106 mmHg Max Pred HR: 148 bpm % Max Pred HR: 55 % Target HR: 126 bpm Max RPP: 8,586 bpm*mmHg Termination Reason: Completed protocol Cardiac Symptoms: None Total Time: 1 min : 0 sec Rest Edward BP: 82 mmHg Peak Edward BP: 81 mmHg Total Dose: 0.4 mg Resting ECG Sinus rhythm. Stress ECG No ST changes. Arrhythmias None. Report Signatures
== END 2024-10-27 09:15 | disposition home or self-care (01) ==
PROVIDERS: PCP Family Medicine; Visit Provider Family Medicine
DX: Z01.818 Encounter for other preprocedural examination (principal); E11.22 Type 2 diabetes mellitus with diabetic chronic kidney disease; N18.31 Chronic kidney disease, stage 3a; G47.33 Obstructive sleep apnea (adult) (pediatric); R94.31 Abnormal electrocardiogram [ECG] [EKG]
CPT/HCPCS: 78452; 93017; A9502; J2785

== ENCOUNTER 2025-04-15 12:33 | Outpatient (CLI) | payer MEDICARE, OTHER, SELFPAY ==
[2025-04-15 17:19] LABS: Hematocrit 40.7 % (42.0-52.0); Hemoglobin 13.0 g/dL (14.0-18.0); Immature Granulocyte Percent A 0.1 % (0-0.5); Lymphocytes Absolute Auto 2.08 K/mm3 (0.9-3.2); Mean Corpuscular HGB Conc 31.9 g/dl (32-36); Mean Corpuscular Hemoglobin 28.6 pg (26-34); Mean Corpuscular Volume 89.6 fl (80-100); Nucleated Red Blood Cells Absolute Auto 0.000 K/mm3 (0.0-0.012); Nucleated Red Blood Cells Perc 0.0 % (0.0-0.2); Platelet Count Result 263 k/mm3 (150-375); Red Blood Count 4.54 M/mm3 (4.6-6.20); White Blood Count 6.7 K/mm3 (4.5-10.0)
[2025-04-15 17:22] LABS: Alanine Aminotransferase 19 U/L (6-50); Albumin Level 4.0 g/dL (3.5-5.1); Alkaline Phosphatase 107 U/L (38-126); Anion Gap 7 mmol/L (4-12); Aspartate Amino Transferase 32 U/L (17-59); Bilirubin,Total 0.9 mg/dL (0.2-1.3); Blood Urea Nitrogen 21 mg/dL (9-20); Calcium 9.4 mg/dL (8.4-10.2); Carbon Dioxide 28 mmol/L (22-30); Chloride 101 mmol/L (98-107); Estimated Glomerular Filt Rate 59; Glucose 111 mg/dL (65-110); Potassium 3.3 mmol/L (3.4-5.0); Sodium 136 mmol/L (137-145); Total Protein 6.9 g/dL (6.3-8.2)
[2025-04-15 17:56] LABS: Ferritin 30.10 ng/mL (11.1-264)
[2025-04-16 12:32] LABS: Hemoglobin A1C 6.1 % (<5.7)
== END 2025-04-15 12:34 | disposition home or self-care (01) ==
LOC: ANHGOSHLAB 12:35
PROVIDERS: PCP Family Medicine; Visit Provider Family Medicine
DX: R73.01 Impaired fasting glucose (principal); R53.1 Weakness; G47.00 Insomnia, unspecified; N18.30 Chronic kidney disease, stage 3 unspecified
CPT/HCPCS: 36415; 80053; 82728; 83036; 85025